=== PATIENT | female | born 1960 | race Caucasian/White ===

== ENCOUNTER 2020-05-07 10:32 | Inpatient (IN) | payer BC, SELFPAY ==
[2020-05-07] VITALS (11 sets, daily range): BP systolic 95–157; BP diastolic 57–88; PULSE 46–72; RESP 14–20; TEMP 36.4–36.8; O2SAT 97–100; BMI 23.6
--- NOTE | 2020-05-07 11:05 | XRR_ITS ---
PROCEDURE INFORMATION: Exam: XR Chest, 1 View Exam date and time: 05/07/2020 11:20 AM Age: 60 years old Clinical indication: Other: Nausea/light-headed / syncope; Patient HX: Was working in [employer] became nauseated and light headed. Syncopal episode of unknown duration TECHNIQUE: Imaging protocol: XR of the chest Views: 1 view. COMPARISON: CR Chest 1 [place] [id number] 03/27/2014 2:54 AM FINDINGS: Lungs: Lungs are well aerated without a focal area of consolidation. Pleural space: Unremarkable. No pleural effusion. No pneumothorax. Heart/Mediastinum: The cardiac silhouette appears enlarged, some of which is magnification related to the AP projection. Bones/joints: Unremarkable. XR/XR chest 1V portable [id number] IMPRESSION: Lungs are well aerated without a focal area of consolidation.
--- NOTE | 2020-05-07 11:05 | CT_ITS ---
WS: [id number] CT HEAD TECHNIQUE: Noncontrast CT of the head obtained from the skullbase to the vertex. CLINICAL INFORMATION: syncope COMPARISON: 2015 DLP: 743.[address] scans at [facility] use at least one of these dose optimization techniques: automat ed exposure control; mA and/or kV adjustment per patient size (includes targeted exams where dose is matched to clinical indication); or iterative reconstruction. FINDINGS: No evidence of intracranial hemorrhage or mass effect. Ventricular system and basal cisterns are corley nt. Mild parenchymal volume loss. No extra-axial fluid collections. No evidence of mass or mass effec t. Normal romero-white differentiation. Paranasal sinuses and mastoid air cells are well aerated. .Normal visualized soft tissues. Notified Sandeep Farrar DO at 05/07/2020 12:[address]/CT head wo con* [id number] IMPRESSION: 1. No evidence of intracranial hemorrhage or mass effect. 2. Mild parenchymal volume loss. 3. No acute intracranial findings.
--- NOTE | 2020-05-07 11:07 | ECG_ITS ---
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 Measurements Intervals [place] Rate: 50 P: 57 [place]: 166 QRS: -16 QRSD: 99 T: 51 QT: 464 QTc: 426 Interpretive Statements SINUS BRADYCARDIA Compared to ECG 04/11/2016 19:01:23 Sinus rhythm no longer present Prolonged QT interval no longer present Electronically Signed On 05-07-2020 20:43:24 CDT by Can Wong M.D. [id number]
--- NOTE | 2020-05-07 11:07 | W.ED.SYNCOPE ---
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 Patient tried to get in front of a fan then sat down. She then had a syncopal episode of unknown duration. Patient denies any chest pain. She denies any recent illness MD complaint: loss of consciousness and collapsed Onset (ago): minute(s) Prodromal symptoms: lightheaded and nausea/vomiting Witnessed: Yes - by Bystander Context: during exertion Injuries sustained associated with event: none Associated symptoms: Reports lightheadedness, nausea and weakness Treatments prior to arrival: none Review of Systems General: Reports: 10 or more systems reviewed and unremarkable except in HPI and below Card: Reports: lightheadedness GI: Reports: nausea Physical Exam Const: COMMON NORMALS: no acute distress, patient oriented x3, no limitations and alert HENMT: COMMON NORMALS: normocephalic, atraumatic, external ears normal and Normal external nose present HEAD & SCALP: normocephalic and atraumatic FACE & SINUS: normal facial exam NOSE: Normal external nose present EXTERNAL EAR: Yes external ears normal MOUTH: Normal oral and palatal mucosa present Neck/C-Spine: COMMON NORMALS: full ROM, no lymphadenopathy, supple, no meningeal signs and no JVD GENERAL: Yes normal visual inspection Resp: COMMON NORMALS: normal respiratory effort, No retractions, No use of accessory muscles and clear to auscultation bilaterally AUSCULTATION: clear to auscultation bilaterally Cardio: COMMON NORMALS: no JVD, regular rate and regular rhythm RATE: regular rate RHYTHM: regular rhythm GI: COMMON NORMALS: Normal to inspection, nondistended, normoactive bowel sounds present, Soft to palpation, non-tender, No hepatosplenomegaly present and no masses INSPECTION: Yes normal to inspection AUSCULTATION: Yes normoactive bowel sounds PALPATION: Yes Soft to palpation and Yes No hepatosplenomegaly present PERCUSSION: normal to percussion : COMMON NORMALS: Yes no CVA tenderness and Yes normal external appearance BLADDER/KIDNEY EXAM: Yes no CVA tenderness Back/Pelvis: COMMON NORMALS: no CVA tenderness, thoracic and lumbar spine normal to inspection, no thoracic nor lumbar tenderness, thoraco-lumbar ROM normal and straight leg raise negative bilaterally Extremity: COMMON NORMALS: normal to inspection, full ROM, capillary refill normal, no joint enlargement, no clubbing, cyanosis or edema, no calf tenderness and no pedal edema Neuro: COMMON NORMALS: patient oriented x3, moves all extremities, no focal motor deficits and no sensory deficits noted SENSORIUM/ORIENTATION: Yes alert MENINGEAL SIGNS: Yes no meningeal signs Psych: COMMON NORMALS: mental status grossly normal, Normal thought process present, cooperative, normal affect and speech normal SPEECH: Yes normal speech THOUGHT PROCESS: Normal thought process present Skin: COMMON NORMALS: no rashes or lesions noted, no wounds, turgor normal, no jaundice, no petechiae and no mottling GENERAL SKIN EXAM: no rashes or lesions noted and turgor normal Course Vital Signs: Vital signs: Vital Signs Temperature 98.2 F 05/07/20 10:41 Pulse Rate 48 L 05/07/20 12:30 Respiratory Rate 18 05/07/20 12:30 Blood Pressure 148/88 05/07/20 12:30 Pulse Oximetry 100 05/07/20 12:30 MDM - Syncope Lab Data: Labs: Lab Results 05/07/20 05/07/20 05/07/20 Range/Units 10:04 10:04 10:04 WBC 8.8 (4.0-10.0) 10^3/ uL RBC 4.96 (4.1-5.3) 10^6/u L Hgb 14.8 (11.5-15.3) g/dL Hct 44.4 (37.0-47.0) % MCV 89.5 (81-99) fL MCH 29.8 (28.0-34.0) pg MCHC 33.3 (30.0-36.0) g/dL RDW 12.6 (12.1-15.1) % Plt Count 341 (130-400) 10^3/c mm MPV 11.6 H (7.4-10.4) fL Neut % (Auto) 42.1 % Lymph % (Auto) 50.7 % [place] % (Auto) 5.5 % Eos % (Auto) 0.8 % Baso % (Auto) 0.7 % Neut # (Auto) 3.69 (1.8-7.7) 10^3/u L Lymph # (Auto) 4.4 (0.8-4.8) 10^3/u L [place] # (Auto) 0.5 (0.2-0.9) 10^3/u L Eos # (Auto) 0.1 (0.0-0.8) 10^3/u L Baso # (Auto) 0.1 (0.0-0.1) 10^3/u L Nucleated RBC % (a uto) 0 % Nucleated RBCs # 0.0 /100WBC PT 12.50 (10.5-13.3) SECO NDS INR 0.91 (0.8-1.2) D-Dimer 0.61 H (0-0.59) ug/mIFE U Sodium 136 (136-145) mmol/L Potassium 3.2 L (3.5-5.1) mmol/L Chloride 99 (98-107) mmol/L Carbon Dioxide 20 L (22-29) mmol/L Anion Gap 20.2 H (5-19) BUN 22 H (6-20) mg/dL Creatinine 0.8 (0.5-0.9) mg/dL GFR Calculation 73.7 L (90-130) mL/min Glucose 140 H (65-115) mg/dL Calculated Osmolal ity 281 L (285-295) mOsm/k g Lactate (0.5-2.2) mmol/L Calcium 10.4 (8.5-10.5) mg/dL Phosphorus 1.6 L (2.5-4.5) mg/dL Magnesium 2.1 (1.7-2.3) mg/dL Total Bilirubin 0.5 (0.15-1.2) mg/dL AST 19 (0-32) U/L ALT 15 (0-33) U/L Alkaline Phosphata se 64 (35-105) IU/L Troponin T Baselin e (0-10) ng/L Troponin T 120 Min [place] (0-10) ng/L Delta Troponin T (0-10) ABS# NT-Pro-B Natriuret Pep 165 H (0-125) pg/mL Total Protein 7.4 (6.6-8.7) g/dL Albumin 4.4 (3.5-5.2) g/dL Globulin 3.0 (1.3-4.6) g/dL Lipase 49 (13-60) U/L TSH 4.21 H (0.27-4.20) uIU/ mL Urine Color (Yellow) Urine Appearance (CLEAR) Urine pH (5-7) Ur Specific Gravit y (1.005-1.030) Urine Protein (Negative) Urine Glucose (UA) (Normal) Urine Ketones (Negative) Urine Blood (Negative) Urine Nitrate (Negative) Urine Bilirubin (NEGATIVE) Urine Urobilinogen (Negative) mg/dL Ur Leukocyte Dorys ase (Negative) 05/07/20 05/07/20 05/07/20 Range/Units 10:04 11:35 11:50 WBC (4.0-10.0) 10^3/ uL RBC (4.1-5.3) 10^6/u L Hgb (11.5-15.3) g/dL Hct (37.0-47.0) % MCV (81-99) fL MCH (28.0-34.0) pg MCHC (30.0-36.0) g/dL RDW (12.1-15.1) % Plt Count (130-400) 10^3/c mm MPV (7.4-10.4) fL Neut % (Auto) % Lymph % (Auto) % [place] % (Auto) % Eos % (Auto) % Baso % (Auto) % Neut # (Auto) (1.8-7.7) 10^3/u L Lymph # (Auto) (0.8-4.8) 10^3/u L [place] # (Auto) (0.2-0.9) 10^3/u L Eos # (Auto) (0.0-0.8) 10^3/u L Baso # (Auto) (0.0-0.1) 10^3/u L Nucleated RBC % (a uto) % Nucleated RBCs # /100WBC PT (10.5-13.3) SECO NDS INR (0.8-1.2) D-Dimer (0-0.59) ug/mIFE U Sodium (136-145) mmol/L Potassium (3.5-5.1) mmol/L Chloride (98-107) mmol/L Carbon Dioxide (22-29) mmol/L Anion Gap (5-19) BUN (6-20) mg/dL Creatinine (0.5-0.9) mg/dL GFR Calculation (90-130) mL/min Glucose (65-115) mg/dL Calculated Osmolal ity (285-295) mOsm/k g Lactate 2.1 (0.5-2.2) mmol/L Calcium (8.5-10.5) mg/dL Phosphorus (2.5-4.5) mg/dL Magnesium (1.7-2.3) mg/dL Total Bilirubin (0.15-1.2) mg/dL AST (0-32) U/L ALT (0-33) U/L Alkaline Phosphata se (35-105) IU/L Troponin T Baselin e 6 (0-10) ng/L Troponin T 120 Min [place] (0-10) ng/L Delta Troponin T (0-10) ABS# NT-Pro-B Natriuret Pep (0-125) pg/mL Total Protein (6.6-8.7) g/dL Albumin (3.5-5.2) g/dL Globulin (1.3-4.6) g/dL Lipase (13-60) U/L TSH (0.27-4.20) uIU/ mL Urine Color Yellow (Yellow) Urine Appearance Clear (CLEAR) Urine pH 7 (5-7) Ur Specific Gravit y 1.010 (1.005-1.030) Urine Protein Neg (Negative) Urine Glucose (UA) Norm (Normal) Urine Ketones Negative (Negative) Urine Blood Neg (Negative) Urine Nitrate Negative (Negative) Urine Bilirubin Neg (NEGATIVE) Urine Urobilinogen Norm (Negative) mg/dL Ur Leukocyte Dorys ase Negative (Negative) 05/07/20 Range/Units 12:20 WBC (4.0-10.0) 10^3/ uL RBC (4.1-5.3) 10^6/u L Hgb (11.5-15.3) g/dL Hct (37.0-47.0) % MCV (81-99) fL MCH (28.0-34.0) pg MCHC (30.0-36.0) g/dL RDW (12.1-15.1) % Plt Count (130-400) 10^3/c mm MPV (7.4-10.4) fL Neut % (Auto) % Lymph % (Auto) % [place] % (Auto) % Eos % (Auto) % Baso % (Auto) % Neut # (Auto) (1.8-7.7) 10^3/u L Lymph # (Auto) (0.8-4.8) 10^3/u L [place] # (Auto) (0.2-0.9) 10^3/u L Eos # (Auto) (0.0-0.8) 10^3/u L Baso # (Auto) (0.0-0.1) 10^3/u L Nucleated RBC % (a uto) % Nucleated RBCs # /100WBC PT (10.5-13.3) SECO NDS INR (0.8-1.2) D-Dimer (0-0.59) ug/mIFE U Sodium (136-145) mmol/L Potassium (3.5-5.1) mmol/L Chloride (98-107) mmol/L Carbon Dioxide (22-29) mmol/L Anion Gap (5-19) BUN (6-20) mg/dL Creatinine (0.5-0.9) mg/dL GFR Calculation (90-130) mL/min Glucose (65-115) mg/dL Calculated Osmolal ity (285-295) mOsm/k g Lactate (0.5-2.2) mmol/L Calcium (8.5-10.5) mg/dL Phosphorus (2.5-4.5) mg/dL Magnesium (1.7-2.3) mg/dL Total Bilirubin (0.15-1.2) mg/dL AST (0-32) U/L ALT (0-33) U/L Alkaline Phosphata se (35-105) IU/L Troponin T Baselin e (0-10) ng/L Troponin T 120 Min [place] 6.74 (0-10) ng/L Delta Troponin T 0.74 (0-10) ABS# NT-Pro-B Natriuret Pep (0-125) pg/mL Total Protein (6.6-8.7) g/dL Albumin (3.5-5.2) g/dL Globulin (1.3-4.6) g/dL Lipase (13-60) U/L TSH (0.27-4.20) uIU/ mL Urine Color (Yellow) Urine Appearance (CLEAR) Urine pH (5-7) Ur Specific Gravit y (1.005-1.030) Urine Protein (Negative) Urine Glucose (UA) (Normal) Urine Ketones (Negative) Urine Blood (Negative) Urine Nitrate (Negative) Urine Bilirubin (NEGATIVE) Urine Urobilinogen (Negative) mg/dL Ur Leukocyte Dorys ase (Negative) Discharge Plan Discharge Patient Disposition: Admitted As Inpatient Clinical Impression: Anginal equivalent, Syncope and collapse, Bradycardia Condition: Fair Referrals: Acosta Wild DO [Primary Care Provider] - Coding Level of Care Code ED Claims Adjuster Crop for Chg Fwd Exam Comprehensive
[2020-05-07 11:31] LABS: Basophils # 0.1 10^3/uL (0.0-0.1); Basophils % 0.7 %; Eosinophils # 0.1 10^3/uL (0.0-0.8); Eosinophils % 0.8 %; Hematocrit 44.4 % (37.0-47.0); Hemoglobin 14.8 g/dL (11.5-15.3); Lymphocytes # 4.4 10^3/uL (0.8-4.8); Lymphocytes % 50.7 %; Mean Corpuscular HGB Conc 33.3 g/dL (30.0-36.0); Mean Corpuscular Hemoglobin 29.8 pg (28.0-34.0); Mean Corpuscular Volume 89.5 fL (81-99); Mean Platelet Volume 11.6 fL (7.4-10.4); Monocytes # 0.5 10^3/uL (0.2-0.9); Monocytes % 5.5 %; Neutrophils # 3.69 10^3/uL (1.8-7.7); Neutrophils % 42.1 %; Nucleated Red Blood Cells % 0 %; Platelet Count 341 10^3/cmm (130-400); Red Blood Count 4.96 10^6/uL (4.1-5.3); Red Cell Distribution Width 12.6 % (12.1-15.1); White Blood Count 8.8 10^3/uL (4.0-10.0)
[2020-05-07 11:34] LABS: INR 0.91 (0.8-1.2)
[2020-05-07 11:37] LABS: D Dimer 0.61 ug/mIFEU (0-0.59)
[2020-05-07 11:43] LABS: Troponin(5th) Baseline 6 ng/L (0-10)
[2020-05-07] MEDS: sodium chloride 0.9% 1,000 ML 999 ML IV (11:45)
[2020-05-07 11:51] LABS: Alanine Aminotransferase 15 U/L (0-33); Albumin Level 4.4 g/dL (3.5-5.2); Alkaline Phosphatase 64 IU/L (35-105); Anion Gap 20.2 (5-19); Aspartate Amino Transferase 19 U/L (0-32); Blood Urea Nitrogen 22 mg/dL (6-20); Calcium 10.4 mg/dL (8.5-10.5); Carbon Dioxide 20 mmol/L (22-29); Chloride 99 mmol/L (98-107); Glomerular Filtration Rate 73.7 mL/min (90-130); Glucose 140 mg/dL (65-115); Lipase 49 U/L (13-60); Magnesium 2.1 mg/dL (1.7-2.3); NT Pro B Type Natriuretic Pept 165 pg/mL (0-125); Osmolality Calculated 281 mOsm/kg (285-295); Phosphorus 1.6 mg/dL (2.5-4.5); Potassium 3.2 mmol/L (3.5-5.1); Sodium 136 mmol/L (136-145); Thyroid Stimulating Hormone 4.21 uIU/mL (0.27-4.20); Total Bilirubin 0.5 mg/dL (0.15-1.2); Total Protein 7.4 g/dL (6.6-8.7)
[2020-05-07 11:59] LABS: Add Urine Microscopic? NO; Bilirubin Urine Neg (NEGATIVE); Blood Urine Neg (Negative); Glucose Urine UA Norm (Normal); Ketones Urine Negative (Negative); Leukocyte Esterase Urine Negative (Negative); Nitrate Urine Negative (Negative); Protein Urine Neg (Negative); Urine Appearance Clear (CLEAR); Urine Color Yellow (Yellow); Urobilinogen Urine Norm (Negative); pH Urine 7 (5-7)
[2020-05-07 12:04] LABS: Lactate (Lactic Acid level) 2.1 mmol/L (0.5-2.2)
[2020-05-07 12:37] LABS: Troponin 5 2HR 6.74 ng/L (0-10); Troponin 5 2HR Delta 0.74 ABS# (0-10)
--- NOTE | 2020-05-07 13:07 | ECG_ITS ---
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 Measurements Intervals [place] Rate: 50 P: 55 [place]: 161 QRS: -22 QRSD: 98 T: 41 QT: 386 QTc: 355 Interpretive Statements SINUS BRADYCARDIA BORDERLINE LEFT AXIS DEVIATION [QRS AXIS < -20] NONSPECIFIC T-WAVE ABNORMALITY Compared to ECG 05/07/2020 11:17:05 T-wave abnormality now present Electronically Signed On 05-07-2020 20:46:10 CDT by Can Wong M.D. [id number]
--- NOTE | 2020-05-07 15:39 | PM.HP ---
Providers/Chief Complaint Admitting Physician: Renato Garcia MD Primary Care Provider: Acosta Wild DO Chief Complaint: SYNCOPE History of Present Illness Ceci Manning is a 60 year old female presents to emerge department after she had syncopal episode. 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 This was witnessed and patient thinks she was out for 20 minutes. She came to and gradually got oriented. She remembers that it was raining and remembers when she was getting into ambulance. At that time she was alert and oriented and recognized surroundings. Patient reports that when she came to she had moderate substernal pressure-like chest pain that she could not really tell me how long it lasted. She also recalls having some back pain but does not think it was related to her chest pain. Denies any previous history of the same. Reports that she would frequently get episodes of heart palpitations. Reports that lately she has been somewhat more tired and fatigued but denies shortness of breath or significant dyspnea on exertion. Denies paroxysmal chewing dyspnea, orthopnea or lower extremity swelling. In emergency department patient was found to have bradycardia in the 30s. Her troponin so far in normal range. Reports that she was previously borderline diabetic . Reports that she lost 60 pounds of weight while following healthy diet and this made her feel much better. Her chronic back pain significantly improved. She denies taking any mat blocking agents. Denies previous history of heart disease or stroke. Review of Systems Const: Denies: fever(s) or chills Eyes: Denies: change in vision ENMT: Denies: throat pain or change in hearing Card: Reports: chest pain; Denies: edema or lightheadedness Resp: Denies: dyspnea or productive cough GI: Reports: abdominal pain (Occasional episodes of epigastric area discomfort. Patient is being treated with meloxicam.); Denies: nausea, vomiting, dysphagia, diarrhea, constipation, hematochezia or melena : Denies: difficulty voiding Musc: Denies: joint pain or joint swelling Skin/Breast: Denies: rash or erythema Neuro: Reports: headache(s) (Has chronic history of migraine headache and reports that in the last couple of weeks she has been having more frequent mild frontal headaches.); Denies: weakness in extremities Psych: Denies: depression (But does report occasionally getting anxious.) Endo: Denies: excessive sweating Massimo/Lymph: Denies: easy bleeding or tender lymph nodes All/Imm: Denies: throat swelling Medications/Allergies Home Medications Medication Instructions Recorded Confirmed Last Taken Type acetaminophen [Tylenol] 325 mg PO QID PRN 05/07/20 05/07/20 05/06/20 History diazepam 2 mg PO DAILY 05/07/20 05/07/20 05/06/20 History estradiol 0.5 mg PO DAILY 05/07/20 05/07/20 05/07/20 History famotidine 20 mg PO BID 05/07/20 05/07/20 05/07/20 History levothyroxine 125 mcg PO DAILY 05/07/20 05/07/20 05/06/20 History lisinopril-hydrochlorothiazide 1 tab PO DAILY 05/07/20 05/07/20 05/07/20 History meloxicam 15 mg PO DAILY 05/07/20 05/07/20 05/06/20 History trazodone 50 mg PO BEDTIME 05/07/20 05/07/20 05/06/20 History Allergies Allergy/AdvReac Type Severity Reaction Status Date / Time meperidine [From Demerol] Allergy ADR-Halluci Verified 05/07/20 12:47 nating Sulfa (Sulfonamide Allergy ALGY-Swell Verified 05/07/20 10:48 Antibiotics) Lip/Tongue/Throat PFSH Acute PFSH: Medical History (Updated 05/07/20 @ 15:52 by Renato Garcia MD) Borderline diabetes Fracture of lower extremity GERD (gastroesophageal reflux disease) Hiatal hernia Hypertension Hypothyroidism Migraine headache Rectal fistula Surgical History (Updated 05/07/20 @ 15:49 by Renato Garcia MD) H/O hysterectomy with oophorectomy Hx laparoscopic cholecystectomy Family History (Updated 05/07/20 @ 15:50 by Renato Garcia MD) Mother Cancer Multiple myeloma CAD (coronary artery disease) Father Cancer Prostate cancer, metastatic Social History (Updated 05/07/20 @ 15:51 by Renato Garcia MD) Smoking and tobacco status: never smoked Alcohol intake: never Substance/Drug Use: never Household members: spouse Vitals/I&O/Wt Last Vital Signs Temp 97.6 F 05/07/20 13:11 Pulse 60 05/07/20 14:48 Resp 18 05/07/20 13:54 BP 148/88 05/07/20 13:54 Pulse Ox 100 05/07/20 14:48 05/07/20 05/07/20 05/07/20 06:59 14:59 22:59 Intake Total 1000 / 1000 Balance 1000 / 1000 Weight last 48 hrs Weight 60.328 kg Physical Exam Const: COMMON NORMALS: no acute distress, patient oriented x3 and alert HENMT: COMMON NORMALS: normocephalic and atraumatic HEAD & SCALP: normocephalic and atraumatic Eye: COMMON NORMALS: EOMs intact bilaterally, conjunctivae normal and no scleral icterus CONJUNCTIVA: Yes conjunctivae normal Neck/C-Spine: COMMON NORMALS: no lymphadenopathy and no meningeal signs Lymph: LYMPHATIC: no lymphadenopathy noted Chest: COMMONS NORMALS: normal palpation of entire chest wall Resp: COMMON NORMALS: No use of accessory muscles and clear to auscultation bilaterally AUSCULTATION: clear to auscultation bilaterally Cardio: COMMON NORMALS: regular rate, regular rhythm and No murmurs present (Cardio) RATE: regular rate RHYTHM: regular rhythm OTHER: No lower extremity edema GI: COMMON NORMALS: Soft to palpation and non-tender PALPATION: Yes Soft to palpation RECTAL EXAM: deferred : COMMON NORMALS: Yes no CVA tenderness BLADDER/KIDNEY EXAM: Yes no CVA tenderness Back/Pelvis: COMMON NORMALS: no CVA tenderness and thoracic and lumbar spine normal to inspection Extremity: COMMON NORMALS: normal to inspection and capillary refill normal Neuro: COMMON NORMALS: patient oriented x3 and no focal motor deficits SENSORIUM/ORIENTATION: Yes alert MENINGEAL SIGNS: Yes no meningeal signs Psych: COMMON NORMALS: mental status grossly normal, Normal thought process present and cooperative THOUGHT PROCESS: Normal thought process present Skin: COMMON NORMALS: no rashes or lesions noted GENERAL SKIN EXAM: no rashes or lesions noted Data : 05/07/20 10:04 05/07/20 10:04 A&P Assessment and plan (1) Sinus bradycardia: Status: Acute (2) Hypertension: Status: Acute (3) GERD (gastroesophageal reflux disease): Status: Acute (4) Hypothyroidism: Status: Acute (5) Syncope and collapse: Status: Acute (6) Anginal equivalent: Status: Acute (7) Hypokalemia: Status: Acute (8) Hyperglycemia: Status: Acute (9) Hypophosphatemia: Status: Acute Additional A&P Information Monitor closely on telemetry. Replete electrolytes. Obtain echocardiogram. We will add aspirin and Lovenox for DVT prophylaxis. Consult cardiology. Patient's chest pain is concerning and at this point we will need to rule out ischemic cause of patient's bradycardia. She will benefit from coronary angiogram and if no significant findings of underlying coronary artery disease she will likely require pacemaker. Check hemoglobin A1c and lipid profile. Discontinue meloxicam and switch H2 pete to Protonix. Attestations Medical Necessity Statement*: Patient with syncopal episode and significant bradycardia requires close inpatient monitoring, treatment and evaluation. I expect patient will require more than 2 midnights. Time Spent in Patient Care: Greater than 35 minutes Coding Level of Care Code Acute Composer Teaching Artist for Chg Fwd Diagnoses Sinus bradycardia R00.1 Hypertension I10 GERD (gastroesophageal reflux disease) K21.9 Hypothyroidism E03.9 Syncope and collapse R55 Anginal equivalent I20.8 Hypokalemia E87.6 Hyperglycemia R73.9 Hypophosphatemia E83.39
[2020-05-07] MEDS: lactated ringers 1,000 ML 50 ML IV (16:16)
[2020-05-07] MEDS: aspirin 325 mg Tablet PO (16:16)
--- NOTE | 2020-05-07 16:39 | PC.NURSE ---
POTASSIUM PHOSPHATE PATIENT DID NOT TOLERATE THE POTASSIUM. THIS NURSE DISCONTINUED AND CONTACTED DR. SANCHES. DR. SANCHES ORDERED 40 MEQ OF ORAL POTASSIUM.
[2020-05-07] MEDS: pantoprazole DR 40 mg Tablet PO (16:42)
[2020-05-07] MEDS: potassium chloride ER 10 mEq Tablet 40 MEQ PO (16:42)
[2020-05-07] MEDS: enoxaparin 40 mg/0.4 mL Syringe SUBCUT (16:42)
--- NOTE | 2020-05-07 17:01 | PM.CONSULT ---
Providers/Reason For Consult Consulting Physican/Specialty*: Dr. TATIANA Raya/cardiology Reason for Consult*: Bradycardia/syncope/chest pain Attending Physician: Renato Garcia MD Primary Care Provider: Acosta Wild DO History of Present Illness History of Present Illness Ceci Manning is a 60 year old female, is admitted to the hospital through the emergency room, where she presented with an episode of syncope. She also was complaining of some chest discomfort. She was found to be bradycardic on the monitor. Cardiology consult is requested for further cardiac evaluation recommendations. This patient has a history of high blood pressure, diet-controlled diabetes and hypothyroidism. She apparently has been in her baseline state of health up until this morning when she woke up with some discomfort in the abdomen. She was not feeling well and was somewhat tired. With the symptoms, she went to the chicken coop to collect eggs. Apparently she got more sick while being in the chicken coop. She was getting more dizzy as well. The next thing she knew was that her son carrying her and making her lie on a flat surface. She had some feeling of tingling and numbness in both upper extremities. She may have passed out for 15 minutes or so, according to her . Subsequently an ambulance was called in and was brought to the hospital. On the way to the hospital, she was complaining of some chest tightness/pain. She is not able to give much details on the chest pain. She did not have much of any shortness of breath, fever, chills or cough. No other associated symptoms. She has no previous history for coronary artery disease, myocardial infarction or congestive heart failure. She has been having episodes of weakness/tiredness lately. She was diagnosed with Lyme disease 3 or 4 years ago. Ever since then, she has been having spells of weakness/tiredness. Usually these spells happen during the summer times. She also may have lost some weight lately. She has fairly good appetite. Recently her primary care provider put her on some doxycycline. But because of the stomach discomfort, she stopped taking the medicine. Review of Systems Narrative: CONSTITUTIONAL: No fever or chills. Feeling of lethargy/weakness, intermittent. EYES: No blurring of vision or other visual disturbances lately. ENT: No hoarseness of voice, auditory disturbances or sore throat. CARDIOVASCULAR: As mentioned above. RESPIRATORY: No significant cough. GASTROINTESTINAL: Stomach discomfort as mentioned above GENITOURINARY: No dysuria or hematuria. INTEGUMENTARY: No skin rashes or history of skin cancer. NEURO: Remote history of migrainous headache. Recently she has been having some headache, dull aching, persistent for the last 2 weeks or so. PSYCHIATRIC: No history of psychosis or major depression. HEMATOLOGIC: No bleeding disorders or significant anemia. ENDOCRINE: History of hypothyroidism, on thyroid supplement MUSCULOSKELETAL: No recent joint pain or swelling. ALLERGY/IMMUNOLOGY: As mentioned above. Meds/Allergies Home Medications and Allergies Home Medications Medication Instructions Recorded Confirmed Last Taken Type acetaminophen [Tylenol] 325 mg PO QID PRN 05/07/20 05/07/20 05/06/20 History diazepam 2 mg PO DAILY 05/07/20 05/07/20 05/06/20 History estradiol 0.5 mg PO DAILY 05/07/20 05/07/20 05/07/20 History famotidine 20 mg PO BID 05/07/20 05/07/20 05/07/20 History levothyroxine 125 mcg PO DAILY 05/07/20 05/07/20 05/06/20 History lisinopril-hydrochlorothiazide 1 tab PO DAILY 05/07/20 05/07/20 05/07/20 History meloxicam 15 mg PO DAILY 05/07/20 05/07/20 05/06/20 History trazodone 50 mg PO BEDTIME 05/07/20 05/07/20 05/06/20 History Allergies Allergy/AdvReac Type Severity Reaction Status Date / Time meperidine [From Demerol] Allergy ADR-Halluci Verified 05/07/20 12:47 nating Sulfa (Sulfonamide Allergy ALGY-Swell Verified 05/07/20 10:48 Antibiotics) Lip/Tongue/Throat Current Medications Current Medications Generic Name Dose Route Start Last Admin Trade Name Freq PRN Reason Stop Dose Admin Enoxaparin Sodium 40 mg 05/07/20 18:00 05/07/20 16:42 Lovenox SUBCUT 40 mg Q24H URBANO Administration Potassium Phosphate 30 mmol/ 110 mls @ 25 mls/hr 05/07/20 16:15 05/07/20 16:16 Sodium Chloride IV 05/07/20 20:38 25 mls/hr ONCE ONE Administration Lactated Ringer's 1,000 mls @ 50 mls/hr 05/07/20 16:00 05/07/20 16:16 Lactated Ringers IV 50 mls/hr .Q20H URBANO Administration Pantoprazole Sodium 40 mg 05/07/20 18:00 05/07/20 16:42 Protonix PO 40 mg BID URBANO Administration PFSH Acute PFSH: Medical History Borderline diabetes Fracture of lower extremity GERD (gastroesophageal reflux disease) Hiatal hernia Hypertension Hypothyroidism Migraine headache Rectal fistula Surgical History H/O hysterectomy with oophorectomy Hx laparoscopic cholecystectomy Family History Mother Cancer Multiple myeloma CAD (coronary artery disease) Father Cancer Prostate cancer, metastatic Social History Smoking and tobacco status: never smoked Alcohol intake: never Substance/Drug Use: never Household members: spouse Vitals/I&O/Wt Last Vital Signs Temp 97.8 F 05/07/20 16:00 Pulse 50 L 05/07/20 16:00 Resp 16 05/07/20 16:00 BP 131/57 05/07/20 16:00 Pulse Ox 98 05/07/20 16:00 05/07/20 05/07/20 05/07/20 06:59 14:59 22:59 Intake Total 1000 / 1000 Balance 1000 / 1000 Weight last 48 hrs Weight 133 lb Physical Exam Narrative: EXAM NARRATIVE: GENERAL: The patient is alert and oriented times three. Not in any acute distress. HEENT: No significant pallor, icterus or lymphadenopathy. The pupils are reactant to light. Oral cavity: There are no mucous membrane lesions. Funduscopic examination: The fundus is not visualized NECK: Trachea appears to be central. No masses noted. No JVD or thyromegaly appreciated. No carotid bruit. RESPIRATORY: Chest is symmetrical. No intercostals muscle retraction or any accessory muscle activation. There is no chest wall tenderness. Breath sounds are heard bilaterally. No rales or rhonchi heard. No evidence of any consolidation. BREASTS: Deferred. HEART: The PMI is in the 5th left intercostals space just inside the midclavicular line. No palpable precordial events. S1 and S2 are normal. No S3 or S4 heard. No pericardial rub or any click heard. ABDOMEN: No vessel pulsations or distention. No tenderness. No organomegaly appreciated. No abdominal bruit. Bowel sounds are normally heard. : Deferred. RECTAL: Deferred. LYMPHATIC: No lymphadenopathy noted in the neck or groin. EXTREMITIES: No edema or cyanosis. No clubbing. The pulses are symmetrical bilaterally. The radial, femoral, dorsalis pedis and the posterior tibial pulses are palpated and found to be in good volume and amplitude. MUSCULOSKELETAL: Gait is normal. There is no joint deformity or swelling noted. No joint tenderness or any effusion. The shoulder and hip joints appear to have normal range of motion. SKIN: There are no significant scars or skin rash noted. NEUROPSYCHIATRIC: The patient is alert and oriented x3. Appears to be in a good mood. The higher functions are grossly within normal limits. No tremors or rigidity noted. Data Labs: Other Labs: Laboratory Last Values WBC 8.8 10^3/uL (4.0- 10.0) 05/07/20 10:04 RBC 4.96 10^6/uL (4.1 -5.3) 05/07/20 10:04 Hgb 14.8 g/dL (11.5-1 5.3) 05/07/20 10:04 Hct 44.4 % (37.0-47.0 ) 05/07/20 10:04 MCV 89.5 fL (81-99) 05/07/20 10:04 MCH 29.8 pg (28.0-34. 0) 05/07/20 10:04 MCHC 33.3 g/dL (30.0-3 6.0) 05/07/20 10:04 RDW 12.6 % (12.1-15.1 ) 05/07/20 10:04 Plt Count 341 10^3/cmm (130 -400) 05/07/20 10:04 MPV 11.6 fL (7.4-10.4 ) H 05/07/20 10:04 Neut % (Auto) 42.1 % 05/07/20 10:04 Lymph % (Auto) 50.7 % 05/07/20 10:04 [place] % (Auto) 5.5 % 05/07/20 10:04 Eos % (Auto) 0.8 % 05/07/20 10:04 Baso % (Auto) 0.7 % 05/07/20 10:04 Neut # (Auto) 3.69 10^3/uL (1.8 -7.7) 05/07/20 10:04 Lymph # (Auto) 4.4 10^3/uL (0.8- 4.8) 05/07/20 10:04 [place] # (Auto) 0.5 10^3/uL (0.2- 0.9) 05/07/20 10:04 Eos # (Auto) 0.1 10^3/uL (0.0- 0.8) 05/07/20 10:04 Baso # (Auto) 0.1 10^3/uL (0.0- 0.1) 05/07/20 10:04 Nucleated RBC % (a uto) 0 % 05/07/20 10:04 Nucleated RBCs # 0.0 /100WBC 05/07/20 10:04 PT 12.50 SECONDS (10 .5-13.3) 05/07/20 10:04 INR 0.91 (0.8-1.2) 05/07/20 10:04 D-Dimer 0.61 ug/mIFEU (0- 0.59) H 05/07/20 10:04 Sodium 136 mmol/L (136-1 45) 05/07/20 10:04 Potassium 3.2 mmol/L (3.5-5 .1) L 05/07/20 10:04 Chloride 99 mmol/L (98-107 ) 05/07/20 10:04 Carbon Dioxide 20 mmol/L (22-29) L 05/07/20 10:04 Anion Gap 20.2 (5-19) H 05/07/20 10:04 BUN 22 mg/dL (6-20) H 05/07/20 10:04 Creatinine 0.8 mg/dL (0.5-0. 9) 05/07/20 10:04 GFR Calculation 73.7 mL/min (90-1 30) L 05/07/20 10:04 Glucose 140 mg/dL (65-115 ) H 05/07/20 10:04 Calculated Osmolal ity 281 mOsm/kg (285- 295) L 05/07/20 10:04 Lactate 2.1 mmol/L (0.5-2 .2) 05/07/20 11:35 Calcium 10.4 mg/dL (8.5-1 0.5) 05/07/20 10:04 Phosphorus 1.6 mg/dL (2.5-4. 5) L 05/07/20 10:04 Magnesium 2.1 mg/dL (1.7-2. 3) 05/07/20 10:04 Total Bilirubin 0.5 mg/dL (0.15-1 .2) 05/07/20 10:04 AST 19 U/L (0-32) 05/07/20 10:04 ALT 15 U/L (0-33) 05/07/20 10:04 Alkaline Phosphata se 64 IU/L (35-105) 05/07/20 10:04 Troponin T Baselin e 6 ng/L (0-10) 05/07/20 10:04 Troponin T 120 Min [place] 6.74 ng/L (0-10) 05/07/20 12:20 Delta Troponin T 0.74 ABS# (0-10) 05/07/20 12:20 NT-Pro-B Natriuret Pep 165 pg/mL (0-125) H 05/07/20 10:04 Total Protein 7.4 g/dL (6.6-8.7 ) 05/07/20 10:04 Albumin 4.4 g/dL (3.5-5.2 ) 05/07/20 10:04 Globulin 3.0 g/dL (1.3-4.6 ) 05/07/20 10:04 Lipase 49 U/L (13-60) 05/07/20 10:04 TSH 4.21 uIU/mL (0.27 -4.20) H 05/07/20 10:04 Urine Color Yellow (Yellow) 05/07/20 11:50 Urine Appearance Clear (CLEAR) 05/07/20 11:50 Urine pH 7 (5-7) 05/07/20 11:50 Ur Specific Gravit y 1.010 (1.005-1.0 30) 05/07/20 11:50 Urine Protein Neg (Negative) 05/07/20 11:50 Urine Glucose (UA) Norm (Normal) 05/07/20 11:50 Urine Ketones Negative (Negati ve) 05/07/20 11:50 Urine Blood Neg (Negative) 05/07/20 11:50 Urine Nitrate Negative (Negati ve) 05/07/20 11:50 Urine Bilirubin Neg (NEGATIVE) 05/07/20 11:50 Urine Urobilinogen Norm mg/dL (Negat erin) 05/07/20 11:50 Ur Leukocyte Dorys ase Negative (Negati ve) 05/07/20 11:50 Imaging^: CT Head: My impression: 1. No evidence of intracranial hemorrhage or mass effect. 2. Mild parenchymal volume loss. 3. No acute intracranial findings. CXR: My impression: Normal cardiac silhouette with no lung infiltrates. No acute pathology noted EKG^: EKG 1: My Interpretation: Sinus bradycardia with some nonspecific T wave changes. Heart rate of 50 bpm. Minimal left axis deviation. EKG computer-generated impression: Sinus bradycardia with a rate of 50 bpm. Minimal left axis deviation. No acute ST-T changes. A&P Assessment and plan (1) Syncope and collapse: Etiology of the syncope is not clear at this time. Possibility of severe bradycardia causing this is a consideration. A vasovagal reaction also is a consideration. Currently she continues to have sinus bradycardia with a heart rate in the upper 40s and low 50s. No evidence of any high degree AV block. Possibility of coronary ischemia causing transient hypotension/bradycardia also is a consideration. Her chest pain may sized underlying coronary ischemia. Status: Acute (2) Atypical chest pain: Her chest pain with the bilateral arm tingling, may suggest a cardiac etiology. The EKG does not reveal any acute changes. For further evaluation, we may do an echocardiogram in the morning. Also may consider doing an exercise/sestamibi/sestamibi stress test. Based on the results of these tests, further recommendations will be made. Status: Acute (3) Bradycardia: Patient apparently has a history of bradycardia. Whether the bradycardia is causing the syncopal episode or not he is not clear at this time. This may need to be further evaluated. She will be closely monitored on telemetry. Status: Acute (4) Hypertension: Patient has a history of essential benign hypertension. Currently her blood pressure is in the normal range. May be continued on the current medications for the time being. Status: Acute Qualifiers: Hypertension type: essential hypertension Qualified Code(s): I10 - Essential (primary) hypertension (5) Hypothyroidism: Clinically she seems to be euthyroid. Her TSH is slightly elevated. May adjust the dose of the levothyroxine. Status: Acute Qualifiers: Hypothyroidism type: acquired Qualified Code(s): E03.9 - Hypothyroidism, unspecified Additional A&P Information Patient the patient's clinical progress and the results of the above, further recommendations will be made. She may be closely monitored on telemetry for the time being. Thank you for the opportunity to eval this patient make these recommendations Coding Level of Care Code Acute Medical Staff Coordinator for Rima Lama History Detailed Exam Detailed Medical Decision Making Moderate Complexity Diagnoses Syncope and collapse R55 Atypical chest pain R07.89 Bradycardia R00.1 Hypertension I10 Hypertension type: essential hypertension Hypothyroidism E03.9 Hypothyroidism type: acquired Time Spent (min) 50
--- NOTE | 2020-05-07 17:07 | ECG_ITS ---
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 Measurements Intervals [place] Rate: 48 P: 58 FL: 159 QRS: -26 QRSD: 98 T: 30 QT: 498 QTc: 445 Interpretive Statements SINUS BRADYCARDIA BORDERLINE LEFT AXIS DEVIATION [QRS AXIS < -20] Compared to ECG 05/07/2020 13:01:39 T-wave abnormality no longer present Electronically Signed On 05-07-2020 20:46:18 CDT by Can Wong M.D. [id number]
[2020-05-07 17:44] LABS: Troponin 5 6HR 6.86 ng/L (0-10); Troponin 5 6HR Delta 0.86 ng/L (0-12)
[2020-05-08] VITALS (7 sets, daily range): BP systolic 100–127; BP diastolic 62–82; PULSE 45–83; RESP 17–18; TEMP 36.7–36.8; O2SAT 95–100
[2020-05-08] MEDS: trazodone 50 mg Tablet PO (00:01)
[2020-05-08 04:51] LABS: Basophils # 0.1 10^3/uL (0.0-0.1); Basophils % 0.6 %; Eosinophils # 0.1 10^3/uL (0.0-0.8); Eosinophils % 1.3 %; Hematocrit 37.7 % (37.0-47.0); Hemoglobin 12.1 g/dL (11.5-15.3); Lymphocytes # 2.6 10^3/uL (0.8-4.8); Lymphocytes % 33.9 %; Mean Corpuscular HGB Conc 32.1 g/dL (30.0-36.0); Mean Corpuscular Hemoglobin 29.8 pg (28.0-34.0); Mean Corpuscular Volume 92.9 fL (81-99); Mean Platelet Volume 11.2 fL (7.4-10.4); Monocytes # 0.5 10^3/uL (0.2-0.9); Monocytes % 6.1 %; Neutrophils # 4.48 10^3/uL (1.8-7.7); Nucleated Red Blood Cells % 0 %; Platelet Count 233 10^3/cmm (130-400); Red Blood Count 4.06 10^6/uL (4.1-5.3); Red Cell Distribution Width 12.9 % (12.1-15.1); White Blood Count 7.7 10^3/uL (4.0-10.0)
--- NOTE | 2020-05-08 05:00 | USCV_ITS ---
Ceci Manning Age: 60 Gender: F : 1960 Exam Date: 05/08/2020 06:19 Ordering Phys: Renato Garcia MD Technologist: Merced Martinez Exam Location: [facility] Indication: SYNCOPAL EPISODE BRADYCARDIA CHEST PAIN BP: 95 / 57 HR: 50 Rhythm: Sinus Technical Quality: Adequate MEASUREMENTS (Male / Female) Normal Values 2D ECHO LV Diastolic Diameter PLAX 4.6 cm 4.2 - 5.9 / 3.9 - 5.3 cm LV Systolic Diameter PLAX 2.5 cm LV Chamber Size 3.6 cm IVS Diastolic Thickness 1.0 cm 0.6 - 1.0 / 0.6 - 0.9 cm IVS Systolic Thickness 1.5 cm LVPW Diastolic Thickness 0.7 cm 0.6 - 1.0 / 0.6 - 0.9 cm LVPW Systolic Thickness 1.6 cm RV Chamber Size 3.2 cm LVOT Diameter 2.0 cm LV Ejection Fraction 2D Teich 78.0 % LV Ejection Fraction MOD 2C 75.0 % LV Ejection Fraction 2C AL 77.7 % LA Diameter 3.1 cm LA Width 2.6 cm LA Height 4.2 cm RA Width 3.3 cm RA Height 3.4 cm Aorta at Sinotubular Diameter 2.8 cm M-MODE LV Diastolic Diameter MM 4.3 cm 4.2 - 5.9 / 3.9 - 5.3 cm LV Systolic Diameter MM 2.8 cm LV Ejection Fraction MM Teich 65.7 % IVS Diastolic Thickness MM 0.9 cm 0.6 - 1.0 / 0.6 - 0.9 cm IVS Systolic Thickness MM 1.7 cm LVPW Diastolic Thickness MM 1.0 cm 0.6 - 1.0 / 0.6 - 0.9 cm LVPW Systolic Thickness MM 1.6 cm RV Diastolic Diameter MM 1.3 cm Aortic Annulus Diameter 3.0 cm LA Ao Ratio MM 1.1 MV E Point Septal Separation 0.6 cm DOPPLER AV Peak Velocity 146.0 cm/s LVOT Peak Velocity 83.0 cm/s AV Area Cont Eq vti 2.0 cm squared AV Area Cont Eq pk 1.8 cm squared MV Area PHT 3.9 cm squared Mitral E to A Ratio 1.8 MV E' Velocity 11.0 cm/s Mitral E to MV E' Ratio 8.3 Mitral E to LV E' Lateral Ratio 7.8 Mitral E to LV E' Septal Ratio 8.9 TR Peak Velocity 201.7 cm/s TR Peak Gradient 16.3 mmHg TR Mean Velocity 157.3 cm/s TR Mean Gradient 10.4 mmHg TR Velocity Time Integral 63.6 cm TV Peak E Velocity 80.0 cm/s Right Atrial Pressure 3.0 mmHg Pulmonary Artery Systolic Pressu 19.3 mmHg PV Peak Velocity 57.0 cm/s RV Acceleration Time 0.2 s RV Ejection Time 0.4 s RV AcT/ET 0.4 FINDINGS Left Ventricle Normal left ventricular size and systolic function, EF 65 %. No regional wall motion abnormalities. Right Ventricle The right ventricle is normal in size and function. Right Atrium The right atrium is normal in size. Left Atrium The left atrium is normal in size. Thickened interatrial septum, suggestive of lipomatous dystrophy Mitral Valve No gross abnormalities noted Aortic Valve No gross abnormalities noted . Tricuspid Valve Trace to mild tricuspid valve regurgitation. Pulmonic Valve No gross abnormalities noted Pericardium Normal pericardium without effusion. Aorta Normal ascending aorta dimension. CONCLUSIONS Normal left ventricular size and systolic function, EF 65 %. No regional wall motion abnormalities. Trace to mild tricuspid valve regurgitation. No significant stenotic lesions. Normal chamber sizes. Thickened interatrial septum, suggestive of lipomatous dystrophy There is no pericardial effusion. There are no intracardiac masses. There are no prior echocardiogram studies to compare. Dr Park Raya MD FACC (Electronically Signed) Final Date: 08 May 2020 09:46 S
[2020-05-08 05:20] LABS: Alanine Aminotransferase 13 U/L (0-33); Albumin Level 3.3 g/dL (3.5-5.2); Alkaline Phosphatase 51 IU/L (35-105); Aspartate Amino Transferase 18 U/L (0-32); Blood Urea Nitrogen 17 mg/dL (6-20); Calcium 8.5 mg/dL (8.5-10.5); Carbon Dioxide 24 mmol/L (22-29); Chloride 109 mmol/L (98-107); Globulin 2.7 g/dL (1.3-4.6); Glomerular Filtration Rate 102.7 mL/min (90-130); Glucose 99 mg/dL (65-115); Magnesium 1.9 mg/dL (1.7-2.3); Osmolality Calculated 286 mOsm/kg (285-295); Phosphorus 3.2 mg/dL (2.5-4.5); Sodium 140 mmol/L (136-145); Total Bilirubin 0.5 mg/dL (0.15-1.2)
--- NOTE | 2020-05-08 07:02 | ECG_ITS ---
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 Interpretive Statements NAME OF STUDY: EXERCISE SESTAMIBI STRESS TEST INDICATION: BRADYCARDIA/SYNCOPE PROCEDURE: The baseline electrocardiogram showed sinus bradycardia with a heart rate of [address]-T's.. At the baseline, the patient's blood pressure was 156/76 mm Hg with a heart rate of 53. The patient exercised for 8 minutes and 51 seconds on a standard Garth protocol. Patient attained a maximum heart rate of 138 beats per minute(85 % of the maximum predicted heart rate) with a blood pressure at the peak exercise of 207/80 mm Hg. The EKG at the peak exercise revealed no significant changes. Patient did not have any chest pain or any significant arrhythmis with the exercise Sestamibi was injected 1 minute prior to the peak exercise During the recovery phase, there were no new changes. Blood pressure at the end of the recovery phase was 124/74 mm Hg with a heart rate of 83 per minute. CONCLUSION: 1. No significant EKG changes with the [treadmill exercise 2. No exercise-induced chest pain or cardiac arrhythmia. Hypertensive response to exercise 3. Good exercise tolerance, attained a maximum of 10.2 METs 4. Sestamibi/Sestamibi perfusion results pending; see separate report. Electronically Signed On 05-11-2020 12:18:55 CDT by Park Raya M.D. [id number]
--- NOTE | 2020-05-08 07:03 | NMCV_ITS ---
NM felix perf SPECT r/s* [id number] Ceci Manning Age: 60 Gender: F : 1960 Exam Date: 05/08/2020 10:36 Ordering Phys: Park Raya MD ([email or web address]) Technologist: SRIKANTH Lancaster Exam Location: [facility] Indications: SYNCOPE STRESS TEST Please see separate stress test report [facility] for full findings IMAGE PROTOCOL Rest/Stress 1 Exercise Day Radiopharmaceutical Dose (mCi) Administration Site Administered by Rest: Tc-99m 10.6 IV SRIKANTH Lancaster Sestamibi Stress:Tc-99m 32.5 IV SRIKANTH Walker Sestamibi Rest: 08-May-2020 60 Discovery 630 Stress: 08-May-2020 30 Discovery 630 Radiopharmaceutical was injected at 85 % maximum heart rate. Images obtained in supine and prone position. SPECT RESULTS Technical Quality: Excellent Raw Data Analysis: Normal Image Corrections: No attenuation or motion correction applied Summed Stress Score: 6 Summed Rest Score: 11 Summed Difference Score: 0 PERFUSION FINDINGS Patchy areas of decreased tracer uptake were noted in the apical lateral, mid inferolateral and apical segments. No significant reversibility was noted in these regions. FUNCTIONAL RESULTS (calculated via Gated SPECT) Stress Image LV EF (%): 74 Stress EDV (mL):80 TID: 0.94 Stress ESV (mL):21 FUNCTIONAL FINDINGS: Segmental wall motion analysis revealing no gross wall motion abnormalities. IMPRESSIONS 1. Myocardial perfusion may revealing patchy areas of persistent decreased tracer uptake in the apical and inferolateral regions, suggestive of myocardial scarring versus attenuation artifacts. 2. Normal LV ejection fraction of 74%. 3. LV wall motion analysis revealing no gross wall motion normalities. 4. Normal LV volume. No significant coronary ischemia, based on the above findings Dr Park Raya MD FAC (Electronically Signed) Final Date: 08 May 2020 13:48 S
--- NOTE | 2020-05-08 10:18 | PC.CHAP ---
Pastoral Care Encounter/Spiritual Assessment Type of Contact [] Declined train operations manager visit [] Patient/Family/Request visit [] Outpatient visit [] Follow-up visit [] Physician referral [] Code/Alert [x] Routine visit [] Staff referral [] Actively dying [] Patient sleeping [] Family support [] [] Out of room [] Palliative care [] [] Receiving care in room [] Pre-surgical visit [] Trauma [] Long length of stay [] ICU visit [] Other: Relational/Emotional Strength [] Patient feels connected with others/family/visitors/staff [] Distress [] Loneliness/isolation [] Abandonment Spirituality of Patient [] Person of Ju [] Attends Restorationist of their Ju [] Believes in Prayer [] Reads Bible or Anabaptism materials [] There are Spiritual issues to be addressed Paperhanger Assistant Interventions [x] Prayer [x] Active listening [x] Non-anxious presence [x] Spiritual/emotional support [] Crisis/trauma care [] Spiritual counseling [] Bereavement support [] Provided bereavement packet [] Provided Bible/devotional materials [] Provided toy/stuffed animal, coloring book to patient or family member [] Provided Communion [] Anointing/[place] [] Salvation [x] Completed spiritual assessment [] Other: Impact on Illness or Injury [] Angry [] Fearful [] Anxious [] Often cries [] Exhaustion [] Unable to work [] Unable to attend rastafarian [] Unable to walk/stand [] Unable to read [] Unable to drive [] Unable to eat/drink [] Unable to sleep [] Unable to be with family [] Patient intubated [] Other: Summary patient resting well. Time spent with patient 5 min
[2020-05-08] MEDS: lactated ringers 1,000 ML 50 ML IV (15:00)
[2020-05-08] MEDS: acetaminophen 325 mg Tablet 650 MG PO (15:01)
--- NOTE | 2020-05-08 15:21 | PM.PN ---
Subjective Subjective: Interval history: Ms. ames is doing well this morning. Denies shortness of breath or chest pain. Denies any lightheadedness or dizziness. She had sestamibi Lexiscan performed today showing no evidence of significant reversibility. Her echocardiogram showed EF 65% with no regional wall motion abnormality. Vitals/I&O/Wt Last Vital Signs Temp 98.1 F 05/08/20 10:45 Pulse 83 05/08/20 12:55 Resp 18 05/08/20 10:45 BP 124/74 05/08/20 12:55 Pulse Ox 100 05/08/20 10:45 05/08/20 05/08/20 05/08/20 06:59 14:59 22:59 Intake Total 1000 / 1000 Balance 1000 / 1000 Weight last 48 hrs Weight 61.462 kg Weight 60.328 kg Physical Exam Const: COMMON NORMALS: no acute distress and patient oriented x3 Resp: COMMON NORMALS: normal respiratory effort and clear to auscultation bilaterally AUSCULTATION: clear to auscultation bilaterally Cardio: COMMON NORMALS: regular rate, regular rhythm and S2 normal heart sound present RATE: regular rate RHYTHM: regular rhythm HEART SOUNDS: S2 normal heart sound present OTHER: No lower extremity edema GI: COMMON NORMALS: Normal to inspection, nondistended, normoactive bowel sounds present, Soft to palpation and non-tender PALPATION: Yes Soft to palpation Neuro: COMMON NORMALS: patient oriented x3 and no focal motor deficits Data : 05/08/20 04:25 05/08/20 04:25 A&P Assessment and plan (1) Sinus bradycardia: Status: Acute (2) Hypertension: Status: Acute Qualifiers: Hypertension type: essential hypertension Qualified Code(s): I10 - Essential (primary) hypertension (3) GERD (gastroesophageal reflux disease): Status: Acute (4) Hypothyroidism: Status: Acute Qualifiers: Hypothyroidism type: acquired Qualified Code(s): E03.9 - Hypothyroidism, unspecified (5) Syncope and collapse: Status: Acute (6) Anginal equivalent: Status: Acute (7) Hypokalemia: Status: Acute (8) Hyperglycemia: Status: Acute (9) Hypophosphatemia: Status: Acute Additional A&P Information Monitor closely on telemetry. We will discuss with Dr. Ryaa after his evaluation. Attestations Medical Necessity Statement*: Patient with syncopal episode and significant bradycardia requires close inpatient monitoring, treatment and evaluation. Time Spent in Patient Care: 16 - 35 minutes Coding Level of Care Code Acute Bilingual Speech Language Pathologist for Chg Fwd Diagnoses Sinus bradycardia R00.1 Hypertension I10 Hypertension type: essential hypertension GERD (gastroesophageal reflux disease) K21.9 Hypothyroidism E03.9 Hypothyroidism type: acquired Syncope and collapse R55 Anginal equivalent I20.8 Hypokalemia E87.6 Hyperglycemia R73.9 Hypophosphatemia E83.39
--- NOTE | 2020-05-08 16:04 | PM.PN ---
Subjective Subjective: Interval history: Patient has not had any chest pain or palpitations since last night. No unusual shortness of breath. Telemetry shows sinus bradycardia with a heart rate in the 40s and 50s. She underwent exercise sestamibi/sestamibi stress test today. She was found to have no evidence of ischemia, based on the perfusion scan. Medications: Reviewed: Yes Medication Review Details: Current Medications Acetaminophen (Tylenol) 650 mg PO Q6H PRN PRN Reason: MILD PAIN Last Admin: 05/08/20 15:01 Dose: 650 mg Documented by: Enoxaparin Sodium (Lovenox) 40 mg SUBCUT Q24H FORMERLY [facility], 1928–1983 Last Admin: 05/07/20 16:42 Dose: 40 mg Documented by: Esmolol HCl (Brevicbloc) 5 mg IV PRN PRN PRN Reason: See dose instructions Lactated Ringer's (Lactated Ringers) 1,000 mls @ 50 mls/hr IV .Q20H FORMERLY [facility], 1928–1983 Last Admin: 05/08/20 15:00 Dose: 50 mls/hr Documented by: Metoprolol Tartrate (Metoprolol Tartrate) 5 mg IV PRN PRN PRN Reason: See dose instructions Morphine Sulfate (Morphine) 2 mg IVP Q4H PRN PRN Reason: SEVERE PAIN Nitroglycerin (Nitrostat) 0.4 mg SUBLINGUAL Q5M PRN PRN Reason: CHEST PAIN Stop: 05/08/20 19:19 Ondansetron HCl (Zofran) 4 mg IVP Q6H PRN PRN Reason: NAUSEA AND VOMITING Pantoprazole Sodium (Protonix) 40 mg PO BID FORMERLY [facility], 1928[facility]1983 Last Admin: 05/08/20 09:00 Dose: Not Given Documented by: Trazodone HCl (Desyrel) 50 mg PO BEDTIME FOR[facility]LY [facility], [facility]1983 Last Admin: 05/08/20 00:01 Dose: 50 mg Documented by: Vitals/I&O/Wt Last Vital Signs Temp 98.2 F 05/08/20 15:38 Pulse 51 L 05/08/20 15:38 Resp 18 05/08/20 15:38 BP 115/72 05/08/20 15:38 Pulse Ox 96 05/08/20 15:38 05/08/20 05/08/20 05/08/20 06:59 14:59 22:59 Intake Total 1000 / 1000 Balance 1000 / 1000 Weight last 48 hrs Weight 135 lb 8 oz Weight 133 lb Physical Exam Narrative: EXAM NARRATIVE: GENERAL: The patient is alert and oriented times three. Not in any acute distress. HEENT: No significant pallor, icterus or lymphadenopathy. NECK: Trachea appears to be central. No masses noted. No JVD or thyromegaly appreciated. No carotid bruit. RESPIRATORY: Chest is symmetrical. No intercostals muscle retraction or any accessory muscle activation. There is no chest wall tenderness. Breath sounds are heard bilaterally. No rales or rhonchi heard. No evidence of any consolidation. BREASTS: Deferred. HEART: The PMI is in the 5th left intercostals space just inside the midclavicular line. No palpable precordial events. S1 and S2 are normal. No S3 or S4 heard. No pericardial rub or any click heard. ABDOMEN: No vessel pulsations or distention. No tenderness. No organomegaly appreciated. No abdominal bruit. Bowel sounds are normally heard. : Deferred. RECTAL: Deferred. LYMPHATIC: No lymphadenopathy noted in the neck or groin. EXTREMITIES: No edema or cyanosis. No clubbing. The pulses are symmetrical bilaterally. The radial, femoral, dorsalis pedis and the posterior tibial pulses are palpated and found to be in good volume and amplitude. MUSCULOSKELETAL: No acute joint deformities or swelling SKIN: There are no significant scars or skin rash noted. NEUROPSYCHIATRIC: The patient is alert and oriented x3. Appears to be in a good mood. The higher functions are grossly within normal limits. No tremors or rigidity noted. Data : 05/08/20 04:25 05/08/20 04:25 Echo: My impression: Echocardiogram done today revealed Normal left ventricular size and systolic function, EF 65 %. No regional wall motion abnormalities. Trace to mild tricuspid valve regurgitation. No significant stenotic lesions. Normal chamber sizes. Thickened interatrial septum, suggestive of lipomatous dystrophy There is no pericardial effusion. There are no intracardiac masses. There are no prior echocardiogram studies to compare. A&P Assessment and plan (1) Syncope and collapse: Etiology of the syncope is not clear at this time. Possibility of severe bradycardia causing this is a consideration. A vasovagal reaction also is a consideration. Currently she continues to have sinus bradycardia with a heart rate in the upper 40s and low 50s. No evidence of any high degree AV block. No evidence of coronary ischemia, based on the perfusion scan. Status: Acute (2) Atypical chest pain: Her chest pain with the bilateral arm tingling, may suggest a cardiac etiology. The EKG does not reveal any acute changes. The echocardiogram was unremarkable. Status: Acute (3) Bradycardia: Patient apparently has a history of bradycardia. Whether the bradycardia is causing the syncopal episode or not is not clear at this time. This may need to be further evaluated. She will be closely monitored on telemetry. Status: Acute (4) Hypertension: Patient has a history of essential benign hypertension. Currently her blood pressure is in the normal range. May be continued on the current medications for the time being. Status: Acute Qualifiers: Hypertension type: essential hypertension Qualified Code(s): I10 - Essential (primary) hypertension (5) Hypothyroidism: Clinically she seems to be euthyroid. Her TSH is slightly elevated. May adjust the dose of the levothyroxine. Status: Acute Qualifiers: Hypothyroidism type: acquired Qualified Code(s): E03.9 - Hypothyroidism, unspecified Additional A&P Information I discussed with the patient and her , in detail, implications of the myocardial perfusion imaging results. Since she has no evidence of ischemia, if she continues remain stable, may be discharged home from a cardiac standpoint. Pt needs to be scheduled for an outpatient event monitoring for 21 days. I may see her in the office in 1 month. Based on the event monitor findings, further recommendations will be made Discussed the recommendations with Dr. Garcia Attestations Medical Necessity Statement*: Possible discharge home today Coding Level of Care Code Acute Brassiere Cup Mold Cutter for [facility] Diagnoses Syncope and collapse R55 Atypical chest pain R07.89 Bradycardia R00.1 Hypertension I10 Hypertension type: essential hypertension Hypothyroidism E03.9 Hypothyroidism type: acquired
--- NOTE | 2020-05-08 18:17 | P.DS_ITS ---
Discharge Providers Date of Admission: 05/07/20 15:57 Date of Discharge: May 08, 2020 Attending Provider at Admission: Renato Garcia MD Attending Provider at Discharge: Renato Garcia MD Primary Care Provider: Acosta Wild DO Diagnoses at Discharge Discharge Diagnosis (1) Syncope and collapse: Status: Acute (2) Atypical chest pain: Status: Acute (3) Bradycardia: Status: Acute (4) Hypertension: Status: Acute Qualifiers: Hypertension type: essential hypertension Qualified Code(s): I10 - Essential (primary) hypertension (5) Hypothyroidism: Status: Acute Qualifiers: Hypothyroidism type: acquired Qualified Code(s): E03.9 - Hypothyroidism, unspecified Reason for Visit Reason for Visit: SYNCOPE Hospital Course Discharge Summary: Patient presented with syncopal episode and significant bradycardia. She reported chest pain and underwent sestamibi Lexiscan after NH was ruled out. Test showed no significant evidence of coronary artery reversibility. Discussed with Dr. Raya this evening and we will go ahead and dismiss patient home and request return tomorrow to cardiology clinic for placement of 21-day event monitoring. Patient reports GERD symptoms therefore meloxicam and H2 pete will be discontinued and patient will be given 1 month of omeprazole. Patient to use Tylenol for pain control. Patient had physical exam performed earlier this morning and outlined in afternoon note. Discharge Data Data Completed and Pending: Completed Studies During Hospitalization Category Date Time Status CT head wo con* 7 0450 Urgent Cat Scan 05/07/20 11:[address] MIBI [Sestamibi Stress Test Reque st Exams 05/08/20 07:02 Draft ] Routine XR chest 1V alexis ble 66088 Urgent Exams 05/07/20 11:05 Completed NM felix perf SPECT r/s* 31832 Routin e Nuc Med 05/08/20 07:03 Completed CV echo complete* [id number] Routine Ultrasound 05/08/20 05:00 Completed Pending at discharge Category Date Time Status Complete Blood Co unt w/Auto AM LABS Lab 05/09/20 04:00 Ordered Complete Blood Co unt w/Auto AM LABS Lab 05/10/20 04:00 Ordered Comprehensive Met abolic Panel AM LA BS Lab 05/09/20 04:00 Ordered Comprehensive Met abolic Panel AM LA BS Lab 05/10/20 04:00 Ordered Magnesium AM LABS Lab 07/30/20 04:00 Ordered Magnesium AM LABS Lab 05/10/20 04:00 Ordered Labs from last 24 hours 05/08/20 05/08/20 04:25 04:25 WBC 7.7 RBC 4.06 L Hgb 12.1 Hct 37.7 MCV 92.9 MCH 29.8 MCHC 32.1 RDW 12.9 Plt Count 233 MPV 11.2 H Neut % (Auto) 58.0 Lymph % (Auto) 33.9 [place] % (Auto) 6.1 Eos % (Auto) 1.3 Baso % (Auto) 0.6 Neut # (Auto) 4.48 Lymph # (Auto) 2.6 [place] # (Auto) 0.5 Eos # (Auto) 0.1 Baso # (Auto) 0.1 Nucleated RBC % (a uto) 0 Nucleated RBCs # 0.0 Sodium 140 Potassium 4.0 Chloride 109 H Carbon Dioxide 24 Anion Gap 11.0 BUN 17 Creatinine 0.6 GFR Calculation 102.7 Glucose 99 Calculated Osmolal ity 286 Calcium 8.5 Phosphorus 3.2 D Magnesium 1.9 Total Bilirubin 0.5 AST 18 ALT 13 Alkaline Phosphata se 51 Total Protein 6.0 L Albumin 3.3 L Globulin 2.7 Vitals: Last Vital Signs Temp 98.2 F 05/08/20 15:38 Pulse 51 L 05/08/20 15:38 Resp 18 05/08/20 15:38 BP 115/72 05/08/20 15:38 Pulse Ox 96 05/08/20 15:38 Discharge Plan Discharge Patient Disposition: Home Condition: Good Prescriptions: New omeprazole 40 mg capsule,delayed release(DR/EC) 40 mg PO DAILY Qty: 30 RF: 0 Continued Tylenol 325 mg Tablet 325 mg PO QID PRN (Reason: Pain) RF: 0 trazodone 100 mg tablet 50 mg PO BEDTIME RF: 0 diazepam 2 mg tablet 2 mg PO DAILY RF: 0 levothyroxine 125 mcg tablet 125 mcg PO DAILY RF: 0 estradiol 0.5 mg tablet 0.5 mg PO DAILY RF: 0 lisinopril-hydrochlorothiazide 10-12.5 mg tablet 1 tab PO DAILY RF: 0 Discontinued meloxicam 15 mg tablet 15 mg PO DAILY RF: 0 famotidine 20 mg tablet 20 mg PO BID RF: 0 Discharge Orders: Discharge Order (Routine); Ordered 05/08/20 Ordered By: Renato Garcia Referrals: Acosta Wild, DO [Primary Care Provider] - (PLEASE CALL FOR APPOINTMENT [phone]) Discharge Diet: Usual diet Discharge Activity: Increase activity as tolerated Activity Restrictions/Additional Instructions: Please call your doctor or present to emergency department if your condition worsens or you develop diarrhea, lightheadedness, fatigue or see blood in your stool or black stool. Please keep blood pressure and heart rate log 3 times daily to present to primary care physician next visit for medication adjustment. Please present to cardiac clinic tomorrow to have 21-day event monitor as we have discussed. Please discuss with your doctor to repeat TSH test in several weeks for reevaluation. Discharge Attestations Time Spent in Discharge Care*: less than 30 min Quality Metrics Clinical Quality Measures During this hospital stay, did patient experience: None Coding Level of Care Code Acute Resistance Brazer for Rima Lama Diagnoses Syncope and collapse R55 Atypical chest pain R07.89 Bradycardia R00.1 Hypertension I10 Hypertension type: essential hypertension Hypothyroidism E03.9 Hypothyroidism type: acquired
--- NOTE | 2020-05-08 19:51 | PC.NURSE ---
Patient discharge reviewed with patient by Moi GONZALES.IV removed intact. Patient in route to pick patient up. Patient is A&Ox3. Respirations even and non-labored on room.
== END 2020-05-08 20:08 | disposition home or self-care (01) | DRG 310 ==
LOC: ER 13:11 → MEDSURG 13:34
PROVIDERS: Family Medicine; Admitting Provider Internal Medicine; PCP Family Medicine; Visit Provider Internal Medicine
DX: R00.1 Bradycardia, unspecified (principal); I10 Essential (primary) hypertension; I20.8 Other forms of angina pectoris; K21.9 Gastro-esophageal reflux disease without esophagitis; E03.9 Hypothyroidism, unspecified; R73.9 Hyperglycemia, unspecified; E83.39 Other disorders of phosphorus metabolism; E87.6 Hypokalemia
CPT/HCPCS: 12345; 36415; 70450; 71045; 78452; 80053; 81003; 83605; 83690; 83735; 83880; 84100; 84443; 84484; 85025; 85378; 85610; 93005; 93017; 93306; 96372; 99283; A9500; G0378; J1650; J7030

== ENCOUNTER 2020-06-03 11:10 | Inpatient (IN) | payer BC, SELFPAY ==
[2020-06-03] VITALS (7 sets, daily range): BP systolic 139–161; BP diastolic 66–90; PULSE 46–68; RESP 16–20; TEMP 36.7; O2SAT 95–98; BMI 23.9
--- NOTE | 2020-06-03 11:28 | XRR_ITS ---
PROCEDURE INFORMATION: Exam: XR Chest, 1 View Exam date and time: 06/03/2020 11:42 AM Age: 60 years old Clinical indication: Other: Near syncope; Prior surgery; Surgery type: Breast; Patient HX: PT wearing a heart monitor TECHNIQUE: Imaging protocol: XR of the chest Views: 1 view. COMPARISON: CR XR chest 1V portable [id number] 05/07/2020 11:08 AM FINDINGS: Lungs: No lung consolidation or pulmonary edema. Pleural space: No pleural effusion or pneumothorax. Heart/Mediastinum: The cardiac silhouette is not enlarged. The mediastinal contours are normal. Bones/joints: Slight curvature of the thoracic spine convex to the right. XR/XR chest 1V portable [id number] IMPRESSION: No acute abnormality.
--- NOTE | 2020-06-03 11:28 | ECG_ITS ---
[facility] Test Date: 2020-06-03 Pat Name: Ceci Manning Department: Room: 107 Gender: Female Power Operator: : 1960 Requested By: Cheryl Ash Order Number: [id number] Sary MD: Can Wong M.D. Measurements Intervals [place] Rate: 54 P: 59 VT: 146 QRS: 4 QRSD: 88 T: 49 QT: 433 QTc: 413 Interpretive Statements SINUS BRADYCARDIA Compared to ECG 05/07/2020 17:00:20 No significant changes Electronically Signed On 06-04-2020 17:20:36 CDT by Can Wong M.D. [email or web address]
[2020-06-03] MEDS: lactated ringers 1,000 ML 999 ML IV (11:42)
[2020-06-03 11:48] LABS: Basophils # 0.1 10^3/uL (0.0-0.1); Basophils % 0.6 %; Eosinophils # 0.1 10^3/uL (0.0-0.8); Eosinophils % 0.6 %; Hematocrit 43.2 % (37.0-47.0); Hemoglobin 14.1 g/dL (11.5-15.3); Lymphocytes # 3.4 10^3/uL (0.8-4.8); Lymphocytes % 31.3 %; Mean Corpuscular HGB Conc 32.6 g/dL (30.0-36.0); Mean Corpuscular Hemoglobin 29.3 pg (28.0-34.0); Mean Corpuscular Volume 89.8 fL (81-99); Mean Platelet Volume 10.9 fL (7.4-10.4); Monocytes # 0.5 10^3/uL (0.2-0.9); Monocytes % 4.9 %; Neutrophils # 6.78 10^3/uL (1.8-7.7); Neutrophils % 62.3 %; Nucleated Red Blood Cells % 0 %; Platelet Count 326 10^3/cmm (130-400); Red Blood Count 4.81 10^6/uL (4.1-5.3); Red Cell Distribution Width 12.5 % (12.1-15.1); White Blood Count 10.9 10^3/uL (4.0-10.0)
[2020-06-03 11:59] LABS: Lactic Sepsis W/Reflex 1.4 mmol/L (0.5-2.2)
[2020-06-03 12:01] LABS: Troponin(5th) Baseline 7 ng/L (0-10)
[2020-06-03 12:04] LABS: Add Urine Microscopic? NO
[2020-06-03 12:06] LABS: Glucose Urine UA Norm (Normal); Protein Urine Neg (Negative); Urine Appearance Clear (CLEAR); Urine Color Yellow (Yellow); pH Urine 8 (5-7)
[2020-06-03 12:07] LABS: Bilirubin Urine Neg (NEGATIVE); Blood Urine Neg (Negative); Ketones Urine Negative (Negative); Leukocyte Esterase Urine Negative (Negative); Nitrate Urine Negative (Negative); Sulfosalicylic Acid Urine Negative (Negative); Urobilinogen Urine Norm (Negative)
[2020-06-03 12:10] LABS: Alanine Aminotransferase 17 U/L (0-33); Albumin Level 4.2 g/dL (3.5-5.2); Alkaline Phosphatase 69 IU/L (35-105); Anion Gap 15.8 (5-19); Aspartate Amino Transferase 19 U/L (0-32); Blood Urea Nitrogen 18 mg/dL (6-20); Calcium 10.2 mg/dL (8.5-10.5); Carbon Dioxide 24 mmol/L (22-29); Chloride 98 mmol/L (98-107); Globulin 3.1 g/dL (1.3-4.6); Glomerular Filtration Rate 85.9 mL/min (90-130); Glucose 118 mg/dL (65-115); NT Pro B Type Natriuretic Pept 237 pg/mL (0-125); Osmolality Calculated 276 mOsm/kg (285-295); Potassium 3.8 mmol/L (3.5-5.1); Sodium 134 mmol/L (136-145); Total Bilirubin 0.4 mg/dL (0.15-1.2); Total Protein 7.3 g/dL (6.6-8.7)
--- NOTE | 2020-06-03 12:57 | ED_ITS ---
HPI - SOB/Dyspnea General: Chief Complaint: Shortness of Breath/Dyspnea Stated Complaint: SOB Time Seen by Provider: 06/03/20 11:24 History of Present Illness: HPI Narrative: This patient is a 60-year-old female who presents today with weakness, near syncope, shortness of breath. She denies chest pain. This started about an hour prior to arrival while she was out in the heat and sun. Her tells me that she had a similar episode 4 weeks ago where she came here and was admitted to the hospital. She had a stress test at that time. She was put on an event monitor which just ended yesterday. She did not have any episodes while she was on the monitor. She does have a history of Lyme disease and questions whether this could be related. Her diagnosis with that was about 3 years ago. She has a history of hypothyroidism but that was also checked when she was here last and they did not feel that she needed to adjust her dose. She said she has not felt well for the past several days and has had a bit of an upset stomach for the past week. Her is concerned about her diet. She said she did diet over the past year and lost 70 pounds. She is now just on maintenance where she eats fruits and vegetables and lean proteins. She has not had any further or uncontrolled weight loss. She denies cough. She has had night sweats. No fever. With the episode she had a month ago her checked her pulse and noted that it was in the 30s. When EMS arrived it was in the 40s and in the hospital here it was mainly in the 50s. Today her pulse is in the 40s again. elicited complaint: shortness of breath Onset (ago): hour(s) (1) Timing: constant Severity: similar to previous episodes Exacerbating factors: nothing Relieving factors: nothing Associated symptoms: Reports palpitations; Deny abdominal pain, chest pain, fever(s), nausea or vomiting Review of Systems General: Reports: 10 or more systems reviewed and unremarkable except in HPI and below Const: Reports: fatigue, malaise and night sweats; Denies: fever(s) or chills Eyes: Denies: change in vision ENMT: Denies: odynophagia Card: Reports: palpitations, pre-syncope and dyspnea on exertion; Denies: chest pain or swelling of feet/ankles Resp: Reports: dyspnea; Denies: productive cough or non-productive cough GI: Denies: abdominal pain, nausea or vomiting : Denies: flank pain or difficulty voiding Musc: Denies: neck pain or back pain Skin/Breast: Denies: rash Neuro: Denies: headache(s), numbness in extremities or weakness in extremities Massimo/Lymph: Denies: easy bruising or easy bleeding PFSH ED PFSH: Medical History Atypical chest pain Borderline diabetes Fracture of lower extremity GERD (gastroesophageal reflux disease) Hiatal hernia Hypertension Hypothyroidism Migraine headache Rectal fistula Surgical History H/O hysterectomy with oophorectomy Hx laparoscopic cholecystectomy Family History (Updated 06/03/20 @ 19:18 by Park Raya MD) Mother Cancer Multiple myeloma CAD (coronary artery disease) Atrial fibrillation Stroke Father Cancer Prostate cancer, metastatic CAD (coronary artery disease) Had myocardial infarction Brother CAD (coronary artery disease) Atrial fibrillation Social History Smoking and tobacco status: never smoked Alcohol intake: never Household members: spouse Physical Exam Const: COMMON NORMALS: no acute distress, patient oriented x3, no limitations and alert GENERAL APPEARANCE: cooperative and comfortable HENMT: HEAD & SCALP: normal to inspection FACE & SINUS: normal facial exam Eye: GENERAL EYE: appearance normal, both eyes and all related structures Neck/C-Spine: COMMON NORMALS: supple, no meningeal signs and no JVD Chest: COMMONS NORMALS: normal inspection of the chest Resp: COMMON NORMALS: normal respiratory effort, No use of accessory muscles and clear to auscultation bilaterally AUSCULTATION: clear to auscultation bilaterally Cardio: COMMON NORMALS: no JVD, regular rate and No murmurs present (Cardio) RATE: regular rate and bradycardic GI: COMMON NORMALS: Normal to inspection, nondistended, normoactive bowel sounds present, Soft to palpation and non-tender INSPECTION: Yes normal to inspection AUSCULTATION: Yes normoactive bowel sounds PALPATION: Yes Soft to palpation Back/Pelvis: COMMON NORMALS: thoracic and lumbar spine normal to inspection Extremity: COMMON NORMALS: normal to inspection Neuro: COMMON NORMALS: patient oriented x3, moves all extremities, no focal motor deficits and no sensory deficits noted SENSORIUM/ORIENTATION: Yes alert MENINGEAL SIGNS: Yes no meningeal signs Psych: COMMON NORMALS: mental status grossly normal, cooperative and normal affect Skin: COMMON NORMALS: no rashes or lesions noted and turgor normal GENERAL SKIN EXAM: no rashes or lesions noted and turgor normal Course ED course: Patient remained bradycardic through the first part of her stay. After a few hours her heart rate was up into the 50s and even the low 60s at times but for the first several hours remained in the 40s. Blood pressures have been normal to high during the stay. Reviewed her prior records and spoke with Dr. Raya who would like to have her admitted overnight for observation and to discuss possible pacemaker placement. Spoke with Dr. Rick who will see her and admit her. He agreed with getting a COVID to just rule that out as a possibility. COVID is associated with some cardiac dysfunctions. Vital Signs: Vital signs: Vital Signs Temperature 98.0 F 06/04/20 11:01 Pulse Rate 68 06/04/20 11:01 Respiratory Rate 18 06/04/20 11:01 Blood Pressure 110/70 06/04/20 11:01 Pulse Oximetry 100 06/04/20 11:01 MDM - SOB/Dyspnea MDM Narrative: Medical decision making narrative: Bradycardia. Could be related to medication, electrolyte abnormality, history of Lyme, potentially COVID although less likely. No evidence of ischemia and recent negative stress test. EKG with sinus bradycardia, no evidence of block. Potential endocrine causes. Patient is compliant with her Synthroid. Lab Data: Labs: Lab Results 06/03/20 06/03/20 06/03/20 Range/Units 11:20 11:20 11:20 WBC 10.9 H (4.0-10.0) 10^3/ uL RBC 4.81 (4.1-5.3) 10^6/u L Hgb 14.1 (11.5-15.3) g/dL Hct 43.2 (37.0-47.0) % MCV 89.8 (81-99) fL MCH 29.3 (28.0-34.0) pg MCHC 32.6 (30.0-36.0) g/dL RDW 12.5 (12.1-15.1) % Plt Count 326 (130-400) 10^3/c mm MPV 10.9 H (7.4-10.4) fL Neut % (Auto) 62.3 % Lymph % (Auto) 31.3 % [place] % (Auto) 4.9 % Eos % (Auto) 0.6 % Baso % (Auto) 0.6 % Neut # (Auto) 6.78 (1.8-7.7) 10^3/u L Lymph # (Auto) 3.4 (0.8-4.8) 10^3/u L [place] # (Auto) 0.5 (0.2-0.9) 10^3/u L Eos # (Auto) 0.1 (0.0-0.8) 10^3/u L Baso # (Auto) 0.1 (0.0-0.1) 10^3/u L Nucleated RBC % (a uto) 0 % Nucleated RBCs # 0.0 /100WBC ESR (0-15) mm/hr Sodium 134 L (136-145) mmol/L Potassium 3.8 (3.5-5.1) mmol/L Chloride 98 (98-107) mmol/L Carbon Dioxide 24 (22-29) mmol/L Anion Gap 15.8 (5-19) BUN 18 (6-20) mg/dL Creatinine 0.7 (0.5-0.9) mg/dL GFR Calculation 85.9 L (90-130) mL/min Glucose 118 H (65-115) mg/dL Estimat Average Gl ucose Hemoglobin A1c (4.0-6.0) % Calculated Osmolal ity 276 L (285-295) mOsm/k g Lactic Acid 1.4 (0.5-2.2) mmol/L Calcium 10.2 (8.5-10.5) mg/dL Total Bilirubin 0.4 (0.15-1.2) mg/dL AST 19 (0-32) U/L ALT 17 (0-33) U/L Alkaline Phosphata se 69 (35-105) IU/L Troponin T Baselin e (0-10) ng/L Troponin T 120 Min algaaciq (0-10) ng/L Delta Troponin T (0-10) ABS# C-Reactive Protein (0.0-4.9) mg/L NT-Pro-B Natriuret Pep 237 H (0-125) pg/mL Total Protein 7.3 (6.6-8.7) g/dL Albumin 4.2 (3.5-5.2) g/dL Globulin 3.1 (1.3-4.6) g/dL Triglycerides (0-150) mg/dL Cholesterol (0-200) mg/dL LDL Cholesterol, C alc (50-129) mg/dL HDL Cholesterol (60-100) mg/dL LDL/HDL Ratio (0.00-3.22) RATI O Cholesterol/HDL Ra charisse (0.0-4.40) mg/dL Procalcitonin (0-0.5) ng/mL TSH (0.27-4.20) uIU/ mL Urine Color (Yellow) Urine Appearance (CLEAR) Urine pH (5-7) Ur Specific Gravit y (1.005-1.030) Urine Protein (Negative) Urine Glucose (UA) (Normal) Urine Ketones (Negative) Urine Blood (Negative) Urine Nitrate (Negative) Urine Bilirubin (NEGATIVE) Prot Sulfosalicyli c Acd (Negative) Urine Urobilinogen (Negative) mg/dL Ur Leukocyte Dorys ase (Negative) Lyme IgG (Western Blot 2) index SARS-CoV-2 Ag (Rap id) (Negative) 06/03/20 06/03/20 06/03/20 Range/Units 11:20 11:20 11:20 WBC (4.0-10.0) 10^3/ uL RBC (4.1-5.3) 10^6/u L Hgb (11.5-15.3) g/dL Hct (37.0-47.0) % MCV (81-99) fL MCH (28.0-34.0) pg MCHC (30.0-36.0) g/dL RDW (12.1-15.1) % Plt Count (130-400) 10^3/c mm MPV (7.4-10.4) fL Neut % (Auto) % Lymph % (Auto) % [place] % (Auto) % Eos % (Auto) % Baso % (Auto) % Neut # (Auto) (1.8-7.7) 10^3/u L Lymph # (Auto) (0.8-4.8) 10^3/u L [place] # (Auto) (0.2-0.9) 10^3/u L Eos # (Auto) (0.0-0.8) 10^3/u L Baso # (Auto) (0.0-0.1) 10^3/u L Nucleated RBC % (a uto) % Nucleated RBCs # /100WBC ESR 19 H (0-15) mm/hr Sodium (136-145) mmol/L Potassium (3.5-5.1) mmol/L Chloride (98-107) mmol/L Carbon Dioxide (22-29) mmol/L Anion Gap (5-19) BUN (6-20) mg/dL Creatinine (0.5-0.9) mg/dL GFR Calculation (90-130) mL/min Glucose (65-115) mg/dL Estimat Average Gl ucose Hemoglobin A1c (4.0-6.0) % Calculated Osmolal ity (285-295) mOsm/k g Lactic Acid (0.5-2.2) mmol/L Calcium (8.5-10.5) mg/dL Total Bilirubin (0.15-1.2) mg/dL AST (0-32) U/L ALT (0-33) U/L Alkaline Phosphata se (35-105) IU/L Troponin T Baselin e 7 (0-10) ng/L Troponin T 120 Min algaaciq (0-10) ng/L Delta Troponin T (0-10) ABS# C-Reactive Protein (0.0-4.9) mg/L NT-Pro-B Natriuret Pep (0-125) pg/mL Total Protein (6.6-8.7) g/dL Albumin (3.5-5.2) g/dL Globulin (1.3-4.6) g/dL Triglycerides 94 (0-150) mg/dL Cholesterol 199 (0-200) mg/dL LDL Cholesterol, C alc 128 (50-129) mg/dL HDL Cholesterol 52 L (60-100) mg/dL LDL/HDL Ratio 2.46 (0.00-3.22) RATI O Cholesterol/HDL Ra charisse 3.83 (0.0-4.40) mg/dL Procalcitonin (0-0.5) ng/mL TSH (0.27-4.20) uIU/ mL Urine Color (Yellow) Urine Appearance (CLEAR) Urine pH (5-7) Ur Specific Gravit y (1.005-1.030) Urine Protein (Negative) Urine Glucose (UA) (Normal) Urine Ketones (Negative) Urine Blood (Negative) Urine Nitrate (Negative) Urine Bilirubin (NEGATIVE) Prot Sulfosalicyli c Acd (Negative) Urine Urobilinogen (Negative) mg/dL Ur Leukocyte Dorys ase (Negative) Lyme IgG (Western Blot 2) index SARS-CoV-2 Ag (Rap id) (Negative) 06/03/20 06/03/20 06/03/20 Range/Units 11:20 11:20 11:20 WBC (4.0-10.0) 10^3/ uL RBC (4.1-5.3) 10^6/u L Hgb (11.5-15.3) g/dL Hct (37.0-47.0) % MCV (81-99) fL MCH (28.0-34.0) pg MCHC (30.0-36.0) g/dL RDW (12.1-15.1) % Plt Count (130-400) 10^3/c mm MPV (7.4-10.4) fL Neut % (Auto) % Lymph % (Auto) % [place] % (Auto) % Eos % (Auto) % Baso % (Auto) % Neut # (Auto) (1.8-7.7) 10^3/u L Lymph # (Auto) (0.8-4.8) 10^3/u L [place] # (Auto) (0.2-0.9) 10^3/u L Eos # (Auto) (0.0-0.8) 10^3/u L Baso # (Auto) (0.0-0.1) 10^3/u L Nucleated RBC % (a uto) % Nucleated RBCs # /100WBC ESR (0-15) mm/hr Sodium (136-145) mmol/L Potassium (3.5-5.1) mmol/L Chloride (98-107) mmol/L Carbon Dioxide (22-29) mmol/L Anion Gap (5-19) BUN (6-20) mg/dL Creatinine (0.5-0.9) mg/dL GFR Calculation (90-130) mL/min Glucose (65-115) mg/dL Estimat Average Gl ucose 105 Hemoglobin A1c 5.3 (4.0-6.0) % Calculated Osmolal ity (285-295) mOsm/k g Lactic Acid (0.5-2.2) mmol/L Calcium (8.5-10.5) mg/dL Total Bilirubin (0.15-1.2) mg/dL AST (0-32) U/L ALT (0-33) U/L Alkaline Phosphata se (35-105) IU/L Troponin T Baselin e (0-10) ng/L Troponin T 120 Min algaaciq (0-10) ng/L Delta Troponin T (0-10) ABS# C-Reactive Protein 3.8 (0.0-4.9) mg/L NT-Pro-B Natriuret Pep (0-125) pg/mL Total Protein (6.6-8.7) g/dL Albumin (3.5-5.2) g/dL Globulin (1.3-4.6) g/dL Triglycerides (0-150) mg/dL Cholesterol (0-200) mg/dL LDL Cholesterol, C alc (50-129) mg/dL HDL Cholesterol (60-100) mg/dL LDL/HDL Ratio (0.00-3.22) RATI O Cholesterol/HDL Ra charisse (0.0-4.40) mg/dL Procalcitonin 0.02 (0-0.5) ng/mL TSH 0.88 (0.27-4.20) uIU/ mL Urine Color (Yellow) Urine Appearance (CLEAR) Urine pH (5-7) Ur Specific Gravit y (1.005-1.030) Urine Protein (Negative) Urine Glucose (UA) (Normal) Urine Ketones (Negative) Urine Blood (Negative) Urine Nitrate (Negative) Urine Bilirubin (NEGATIVE) Prot Sulfosalicyli c Acd (Negative) Urine Urobilinogen (Negative) mg/dL Ur Leukocyte Dorys ase (Negative) Lyme IgG (Western Blot 2) <0.90 index SARS-CoV-2 Ag (Rap id) (Negative) 08/24/20 08/24/20 08/24/20 Range/Units 11:51 13:17 13:45 WBC (4.0-10.0) 10^3/ uL RBC (4.1-5.3) 10^6/u L Hgb (11.5-15.3) g/dL Hct (37.0-47.0) % MCV (81-99) fL MCH (28.0-34.0) pg MCHC (30.0-36.0) g/dL RDW (12.1-15.1) % Plt Count (130-400) 10^3/c mm MPV (7.4-10.4) fL Neut % (Auto) % Lymph % (Auto) % [place] % (Auto) % Eos % (Auto) % Baso % (Auto) % Neut # (Auto) (1.8-7.7) 10^3/u L Lymph # (Auto) (0.8-4.8) 10^3/u L [place] # (Auto) (0.2-0.9) 10^3/u L Eos # (Auto) (0.0-0.8) 10^3/u L Baso # (Auto) (0.0-0.1) 10^3/u L Nucleated RBC % (a uto) % Nucleated RBCs # /100WBC ESR (0-15) mm/hr Sodium (136-145) mmol/L Potassium (3.5-5.1) mmol/L Chloride (98-107) mmol/L Carbon Dioxide (22-29) mmol/L Anion Gap (5-19) BUN (6-20) mg/dL Creatinine (0.5-0.9) mg/dL GFR Calculation (90-130) mL/min Glucose (65-115) mg/dL Estimat Average Gl ucose Hemoglobin A1c (4.0-6.0) % Calculated Osmolal ity (285-295) mOsm/k g Lactic Acid (0.5-2.2) mmol/L Calcium (8.5-10.5) mg/dL Total Bilirubin (0.15-1.2) mg/dL AST (0-32) U/L ALT (0-33) U/L Alkaline Phosphata se (35-105) IU/L Troponin T Baselin e (0-10) ng/L Troponin T 120 Min algaaciq 6.78 (0-10) ng/L Delta Troponin T -0.22 L (0-10) ABS# C-Reactive Protein (0.0-4.9) mg/L NT-Pro-B Natriuret Pep (0-125) pg/mL Total Protein (6.6-8.7) g/dL Albumin (3.5-5.2) g/dL Globulin (1.3-4.6) g/dL Triglycerides (0-150) mg/dL Cholesterol (0-200) mg/dL LDL Cholesterol, C alc (50-129) mg/dL HDL Cholesterol (60-100) mg/dL LDL/HDL Ratio (0.00-3.22) RATI O Cholesterol/HDL Ra charisse (0.0-4.40) mg/dL Procalcitonin (0-0.5) ng/mL TSH (0.27-4.20) uIU/ mL Urine Color Yellow (Yellow) Urine Appearance Clear (CLEAR) Urine pH 8 H (5-7) Ur Specific Gravit y 1.020 (1.005-1.030) Urine Protein Neg (Negative) Urine Glucose (UA) Norm (Normal) Urine Ketones Negative (Negative) Urine Blood Neg (Negative) Urine Nitrate Negative (Negative) Urine Bilirubin Neg (NEGATIVE) Prot Sulfosalicyli c Acd Negative (Negative) Urine Urobilinogen Norm (Negative) mg/dL Ur Leukocyte Dorys ase Negative (Negative) Lyme IgG (Western Blot 2) index SARS-CoV-2 Ag (Rap id) Negative (Negative) Discharge Plan Discharge Patient Disposition: Placed in Observation Admit Provider: Crispin Rick Clinical Impression: Sinus bradycardia, Near syncope Condition: Stable Referrals: Acosta Wild DO [Primary Care Provider] - Discharge Date/Time: 06/03/20 14:58 Coding Level of Care Code 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
--- NOTE | 2020-06-03 13:28 | ECG_ITS ---
[facility] Test Date: 2020-06-03 Pat Name: Ceci Manning Department: Room: Gender: Female Operations Officer: : 1960 Requested By: Cheryl Ash Order Number: [id number] Sary MD: Can Wong M.D. Measurements Intervals [place] Rate: 50 P: 66 MS: 155 QRS: -5 QRSD: 102 T: 56 QT: 503 QTc: 460 Interpretive Statements SINUS BRADYCARDIA MODERATE ST DEPRESSION [0.05+ mV ST DEPRESSION] PROLONGED QT INTERVAL Compared to ECG 05/07/2020 17:00:20 ST (T wave) deviation now present Prolonged QT interval now present Electronically Signed On 06-04-2020 17:28:57 CDT by Can Wong M.D. [email or web address] hospital [email or web address] [id number]
[2020-06-03 13:40] LABS: Troponin 5 2HR 6.78 ng/L (0-10)
[2020-06-03 13:41] LABS: Troponin 5 2HR Delta -0.22 ABS# (0-10)
--- NOTE | 2020-06-03 14:04 | PC.NURSE ---
COVID nasopharyngeal swab collected at this time. Swab taken to lab at this time for testing.
--- NOTE | 2020-06-03 14:13 | PM.HP ---
Providers/Chief Complaint Primary Care Provider: Acosta Wild DO Chief Complaint: SOB History of Present Illness Ceci Manning is a 60 year old female with a past medical history of Lyme disease, GERD, hypertension, hypothyroidism, migraines, who presents to [facility] due to fatigue, malaise, lightheadedness, chest palpitations, shortness of breath. Recently patient was admitted and discharged from [facility] May 08, 2020, for syncopal episode, had a cardiac evaluation which was within normal limits, was discharged with a Holter monitor, she finished a Holter monitor yesterday. Patient tells me that for the last 3 days she is just not been feeling well, fatigue, malaise, muscle aches and pains, multiple joint pains. No fevers, no chills, no known exposure to COVID-19, but she did travel down to near [facility] to drop off her son in college. Patient states that she woke up early this morning around 630, nothing out of the ordinary, did continue to feel ill, had breakfast, she went out with her in his truck, roughly 930 it was a bit hot, she progressively started to feel more fatigue, malaise, more ill. She started to then developed lightheadedness, dizziness, as if the room was spinning around her, tinnitus, nausea, she describes her chest symptoms as chest palpitations, or or a feeling of uneasiness in her chest, she felt quite short of breath. She never passed out. So she decided to come to [facility] for further evaluation. Patient tells me that she did have a tick bite a few days ago, and she removed that tick. She had a history of Lyme disease roughly 3 years ago, for which she was treated. Denies smoking. No alcohol use. No drug use. No calf pain or calf swelling. But does report bilateral lower extremity swelling f for a few days after dropping her son off at college. The car drive was for 4 hours. They did take plenty of stops. She denies a cardiac history, does have an extensive family history of CAD. No history of strokes. Down in the emergency room, patient's heart rates were as low as the 40s, sinus bradycardia, EKG performed was poor quality study, no bundle branch block, QTc 460 ms prolonged, QRS 102 ms, IL interval 155 ms Review of Systems Const: Reports: body aches, fatigue, malaise and night sweats; Denies: fever(s) or chills Eyes: Denies: change in vision or blurry vision ENMT: Denies: hoarseness or nasal congestion Card: Reports: chest pain, palpitations, edema, lightheadedness, pre-syncope and orthopnea; Denies: irregular heart rhythm, syncope or dyspnea on exertion Resp: Reports: dyspnea; Denies: productive cough, non-productive cough, wheezing or chest congestion GI: Denies: abdominal pain, nausea, vomiting, hematemesis, diarrhea, constipation, hematochezia or melena : Denies: flank pain, dysuria or urinary frequency Musc: Denies: neck pain or back pain Skin/Breast: Denies: rash Neuro: Reports: dizziness and vertigo; Denies: headache(s) Psych: Denies: anxiety or depression Endo: Denies: polyuria or polydipsia Medications/Allergies Home Medications Medication Instructions Recorded Confirmed Last Taken Type diazepam 2 - 4 mg PO BID PRN 05/07/20 06/03/20 06/01/20 History estradiol 0.5 mg PO DAILY 05/07/20 06/03/20 06/03/20 History levothyroxine 125 mcg PO DAILY 05/07/20 06/03/20 06/03/20 History lisinopril-hydrochlorothiazide 1 tab PO DAILY 05/07/20 06/03/20 06/03/20 History trazodone 50 mg PO BEDTIME 05/07/20 06/03/20 06/02/20 History omeprazole 40 mg PO DAILY #30 cap 05/08/20 06/03/20 06/03/20 Rx Vitamin B-12 See Rx Instructions .ROUTE .COMPLEX 06/03/20 06/03/20 Unknown History Vitamin B-6 1 tab PO DAILY 06/03/20 06/03/20 Unknown History Vitamin D3 [place] See Rx Instructions .ROUTE .COMPLEX 06/03/20 06/03/20 Unknown History acetaminophen [Tylenol Extra 500 - 1,000 mg PO PRN 06/03/20 06/03/20 06/02/20 History Strength] Allergies Allergy/AdvReac Type Severity Reaction Status Date / Time meperidine [From Demerol] Allergy ADR-Halluci Verified 06/03/20 11:38 nating Sulfa (Sulfonamide Allergy Jody Verified 06/03/20 11:38 Antibiotics) Lip/Tongue/Throat PFSH Acute PFSH: Medical History (Updated 06/03/20 @ 14:22 by Crispin Rick MD) Atypical chest pain Borderline diabetes Fracture of lower extremity GERD (gastroesophageal reflux disease) Hiatal hernia Hypertension Hypothyroidism Migraine headache Rectal fistula Surgical History H/O hysterectomy with oophorectomy Hx laparoscopic cholecystectomy Family History Mother Cancer Multiple myeloma CAD (coronary artery disease) Father Cancer Prostate cancer, metastatic Social History Smoking and tobacco status: never smoked Alcohol intake: never Household members: spouse Vitals/I&O/Wt Last Vital Signs Temp 98.1 F 06/03/20 11:16 Pulse 68 06/03/20 14:05 Resp 18 06/03/20 14:05 BP 161/90 06/03/20 14:05 Pulse Ox 98 06/03/20 11:16 06/02/20 06/03/20 06/03/20 22:59 06:59 14:59 Intake Total 1000 / 1000 Balance 1000 / 1000 Weight last 48 hrs Weight 61.235 kg Physical Exam Const: COMMON NORMALS: no acute distress and patient oriented x3 GENERAL APPEARANCE: cooperative and comfortable HENMT: COMMON NORMALS: normocephalic HEAD & SCALP: normocephalic Eye: COMMON NORMALS: Equal, round and reactive pupils present and EOMs intact bilaterally GENERAL EYE: appearance normal, both eyes and all related structures PUPIL: Yes Equal, round and reactive pupils present Neck/C-Spine: COMMON NORMALS: full ROM, no lymphadenopathy, no JVD and Thyroid normal THYROID: Thyroid normal Lymph: LYMPHATIC: no lymphadenopathy noted Resp: COMMON NORMALS: normal respiratory effort, No retractions, No use of accessory muscles and clear to auscultation bilaterally AUSCULTATION: clear to auscultation bilaterally Cardio: COMMON NORMALS: no JVD, regular rate, regular rhythm, S1 normal heart sound present, S2 normal heart sound present, No gallops present (Cardio), No clicks present (Cardio) and No murmurs present (Cardio) RATE: regular rate RHYTHM: regular rhythm HEART SOUNDS: S1 normal heart sound present and S2 normal heart sound present GI: COMMON NORMALS: Normal to inspection, nondistended, normoactive bowel sounds present, Soft to palpation, non-tender and No hepatosplenomegaly present PALPATION: Yes Soft to palpation and Yes No hepatosplenomegaly present Extremity: COMMON NORMALS: normal to inspection, full ROM and no pedal edema Neuro: COMMON NORMALS: patient oriented x3, CN's II-XII intact bilaterally, moves all extremities and no focal motor deficits Psych: COMMON NORMALS: mental status grossly normal, Normal thought process present and cooperative THOUGHT PROCESS: Normal thought process present Data : 06/03/20 11:20 06/03/20 11:20 A&P Assessment and plan (1) Pre-syncope: -Holter monitor did show episodes of sinus bradycardia, heart rates in the low 50s -EKG during this hospitalization poor quality study, will repeat, sinus bradycardia heart rate in the 50s, IL interval 155 ms, QRS 102 ms, QTC 460 ms, no blocks, moderate ST depression -Echocardiogram on last admission shows EF of 65%, no regional wall motion abnormalities -Stress test on last admission showed myocardial perfusion showing patchy areas of persistent decreased tracer uptake in the apical and inferior lateral regions, no gross wall motion abnormalities -Head CT on last admission showed no acute abnormalities Plan: -Cardiology has been consulted, Dr. Raya to see, consideration for pacemaker placement Patient has a history of Lyme disease treated 3 years ago, had a tick bite 3 days ago, has symptoms of chronic Lyme, start Rocephin 2 g daily given pre-syncope and chest pain. -Lyme serologies ordered,TSH, ESR, CRP -Admit to cardiac stepdown unit, Holter monitoring -Atropine as needed -We will check carotid ultrasound, will consider MRI/MRA of brain to evaluate for possible posterior circulation stroke Status: Acute (2) Sinus bradycardia: Status: Acute (3) Hypothyroidism: Status: Acute Qualifiers: Hypothyroidism type: acquired Qualified Code(s): E03.9 - Hypothyroidism, unspecified (4) Fatigue: -Patient has a lot of symptoms of chronic Lyme disease, will order Lyme serologies Status: Acute (5) Tick bite: Status: Acute Additional A&P Information Full code, Lovenox DVT prophylaxis Attestations Medical Necessity Statement*: Patient guards hospitalization, outpatient observation, for presyncopal episode, sinus bradycardia Coding Level of Care Code Acute Tax Services Intern for Chg Fwd Diagnoses Pre-syncope R55 Sinus bradycardia R00.1 Hypothyroidism E03.9 Hypothyroidism type: acquired Fatigue R53.83 Tick bite W57.XXXA
[2020-06-03 14:38] LABS: SARS Covid-2 Antigen Negative (Negative)
--- NOTE | 2020-06-03 15:06 | USCV_ITS ---
Ceci Manning Age: 60 Gender: F : 1960 Exam Date: 06/03/2020 15:49 Ordering Phys: Crispin Rick MD Technologist: AARON ROB Exam Location: [facility] [place] Indication: SWELLING PROCEDURES: Venous duplex imaging was performed in bilateral lower extremities. The following venous structures were evaluated: common femoral vein, profunda vein, proximal portion of the greater saphenous vein, superficial femoral vein, and the popliteal vein. In addition, the posterior tibial and peroneal trunk were evaluated. Serial compression, augmentation maneuvers, and spectral Doppler flow evaluation were performed. FINDINGS: Normal 2-D Doppler and augmentation and compressibility throughout the lower extremity venous structures. Additional imaging through the proximal calf veins also reveals no thrombus. Limited evaluation of the greater saphenous vein is patent with no thrombus.. CONCLUSIONS No evidence of right lower extremity DVT. No evidence of left lower extremity DVT. Matt Eckert MD (Electronically Signed) Final Date: 03 June 2020 17:07 S
--- NOTE | 2020-06-03 15:06 | USCV_ITS ---
Ceci Manning Age: 60 Gender: F : 1960 Exam Date: 06/03/2020 15:27 Ordering Phys: Crispin Rick MD Technologist: AARON ROB Exam Location: [facility] [place] Indication: SYNCOPE Risk Factors: Previous Vascular Surgery: Right Brachial BP: / Left Brachial BP: / Right Left Velocity (cm/s) Spectral Plaque Velocity (cm/s) Spectral Plaque Syst/Diast Broadening Syst/Diast Broadening 105.80/22.10 Prox CCA 96.50 / 26.40 71.70/ 18.70 Mid CCA 67.50 / 23.90 57.50/ 20.20 Distal CCA 70.10 / 25.60 73.70/ 23.20 Prox ICA 106.80/ 33.30 97.90/ 31.10 Mid ICA 91.40 / 37.60 135.60/37.50 Distal ICA 75.70 / 22.30 88.60 ECA 106.00 1.37 ICA/CCA 1.35 Antegrade Vertebral Antegrade 77.20/ 27.60 cm/s 65.10/ 15.40 cm/s Bi Subclavian Tri 78.50 96.30 CONCLUSIONS Right ICA stenosis <50%. Left ICA stenosis <50%. Normal antegrade Doppler flow noted in the right vertebral artery. Normal antegrade Doppler flow noted in the left vertebral artery. Matt Eckert MD (Electronically Signed) Final Date: 03 June 2020 17:10 S
[2020-06-03 15:50] LABS: Procalcitonin 0.02 ng/mL (0-0.5); Thyroid Stimulating Hormone 0.88 uIU/mL (0.27-4.20)
[2020-06-03 15:54] LABS: Estmated Average Glucose 105; Hemoglobin A1C 5.3 % (4.0-6.0)
[2020-06-03 16:05] LABS: C Reactive Protein 3.8 mg/L (0.0-4.9)
--- NOTE | 2020-06-03 16:10 | ECG_ITS ---
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 Measurements Intervals [place] Rate: 48 P: 52 AL: 151 QRS: -16 QRSD: 92 T: 41 QT: 465 QTc: 417 Interpretive Statements SINUS BRADYCARDIA Compared to ECG 06/03/2020 13:44:58 ST (T wave) deviation no longer present Prolonged QT interval no longer present Electronically Signed On 06-04-2020 17:28:58 CDT by Can Wong M.D. [id number]
[2020-06-03 16:12] LABS: Erythrocyte Sedimentation Rate 19 mm/hr (0-15)
[2020-06-03] MEDS: enoxaparin 40 mg/0.4 mL Syringe SUBCUT (16:12)
[2020-06-03 16:49] LABS: Chol HDL Ratio 3.83 mg/dL (0.0-4.40); Cholesterol 199 mg/dL (0-200); HDL Cholesterol 52 mg/dL (60-100); LDL Cholesterol Calculated 128 mg/dL (50-129); LDL HDL Ratio 2.46 RATIO (0.00-3.22); Triglycerides 94 mg/dL (0-150)
--- NOTE | 2020-06-03 17:28 | ECG_ITS ---
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 Measurements Intervals [place] Rate: 52 P: 57 [place]: 151 QRS: -28 QRSD: 100 T: 31 QT: 461 QTc: 432 Interpretive Statements SINUS BRADYCARDIA SEPTAL MYOCARDIAL INFARCTION [40+ ms Q WAVE IN V1/V2], PROBABLY OLD Compared to ECG 06/03/2020 16:37:57 Myocardial infarct finding now present Electronically Signed On 06-04-2020 17:29:07 CDT by Can Wong M.D. [email or web address] [email or web address] baptist medical centerCaratLanevan [facility].[id number]
--- NOTE | 2020-06-03 17:41 | PC.NURSE ---
patient asking about cardiology at this time, Dr Rick notified for POC. Discussed with patient, Dr rick reports he is awaiting cardiology to call back.
--- NOTE | 2020-06-03 18:32 | PM.CONSULT ---
Providers/Reason For Consult Consulting Physican/Specialty*: TATIANA Raya MD/cardiology Reason for Consult*: Dizziness/near syncope/bradycardia Attending Physician: Crispin Rick MD Primary Care Provider: Acosta Wild DO History of Present Illness History of Present Illness Ceci Manning is a 60 year old female is admitted to the hospital through the emergency room, where she presented with complaints of dizziness/weakness/near syncopal episode. She was found to have heart rate in the upper 40s and low 50s in the emergency room. This patient was recently discharged the hospital when she was admitted with an episode of syncope. She was discharged home with an event monitor. Apparently the event monitor did not show any significant bradycardia or tachyarrhythmias to explain the syncopal episode. For the last 4 days or so, patient has been having feeling of weakness/nausea and some abdominal discomfort. This morning she was in a truck [place]. Her nausea, dizziness and abdominal discomfort started getting worse. She almost felt like going to pass out. But she never had any loss of consciousness. No seizure activities. She may have some chest tightness/heaviness. She also had tingling and numbness of her extremities. For these complaints, she was brought to the emergency room. Currently in the telemetry floor, she still has the feeling of weakness. She also has some tight feeling in the chest. No nausea vomiting. No shortness of breath. The EKG did not reveal any significant ischemic changes. No other arrhythmias are noted on the monitor. For the last 4 days or so, she has been having some tight feeling in the chest associated with a tightness and heaviness. She was getting extremely tired and weak after climbing the steps at home. The symptoms appear to be intermittent. She has no fever, chills or cough. She has a history of tick fever few years ago. She had a tick panel by her primary care provider few weeks ago. Patient has a strong family history for cardiac arrhythmia. Her mother and brother had atrial fibrillation. Mother had a permanent pacer implantation. 1 of her uncles also had a permanent pacer implantation. Review of Systems Narrative: CONSTITUTIONAL: No fever or chills. EYES: No blurring of vision or other visual disturbances lately. ENT: No hoarseness of voice, auditory disturbances or sore throat. CARDIOVASCULAR: As mentioned above. RESPIRATORY: No significant cough. GASTROINTESTINAL: Nausea, abdominal discomfort/cramping as mentioned above GENITOURINARY: No dysuria or hematuria. INTEGUMENTARY: No skin rashes or history of skin cancer. NEURO: Dizziness/near syncopal episodes as mentioned above PSYCHIATRIC: No history of psychosis or major depression. HEMATOLOGIC: No bleeding disorders or significant anemia. ENDOCRINE: No history of polyuria or polydipsia. MUSCULOSKELETAL: No recent joint pain or swelling. ALLERGY/IMMUNOLOGY: As mentioned above. Meds/Allergies Home Medications and Allergies Home Medications Medication Instructions Recorded Confirmed Last Taken Type diazepam 2 - 4 mg PO BID PRN 05/07/20 06/03/20 06/01/20 History estradiol 0.5 mg PO DAILY 05/07/20 06/03/20 06/03/20 History levothyroxine 125 mcg PO DAILY 05/07/20 06/03/20 06/03/20 History lisinopril-hydrochlorothiazide 1 tab PO DAILY 05/07/20 06/03/20 06/03/20 History trazodone 50 mg PO BEDTIME 05/07/20 06/03/20 06/02/20 History omeprazole 40 mg PO DAILY #30 cap 05/08/20 06/03/20 06/03/20 Rx Vitamin B-12 See Rx Instructions .ROUTE .COMPLEX 06/03/20 06/03/20 Unknown History Vitamin B-6 1 tab PO DAILY 06/03/20 06/03/20 Unknown History Vitamin D3 [facility] See Rx Instructions .ROUTE .COMPLEX 06/03/20 06/03/20 Unknown History acetaminophen [Tylenol Extra 500 - 1,000 mg PO PRN 06/03/20 06/03/20 06/02/20 History Strength] Allergies Allergy/AdvReac Type Severity Reaction Status Date / Time meperidine [From Demerol] Allergy ADR-Halluci Verified 06/03/20 11:38 nating Sulfa (Sulfonamide Allergy ALGY-Swell Verified 06/03/20 11:38 Antibiotics) Lip/Tongue/Throat Current Medications Current Medications Generic Name Dose Route Start Last Admin Trade Name Freq PRN Reason Stop Dose Admin Enoxaparin Sodium 40 mg 06/03/20 16:00 06/03/20 16:12 Lovenox SUBCUT 40 mg Q24H URBANO Administration PFSH Acute PFSH: Medical History Atypical chest pain Borderline diabetes Fracture of lower extremity GERD (gastroesophageal reflux disease) Hiatal hernia Hypertension Hypothyroidism Migraine headache Rectal fistula Surgical History H/O hysterectomy with oophorectomy Hx laparoscopic cholecystectomy Family History (Updated 06/03/20 @ 19:18 by Park Raya MD) Mother Cancer Multiple myeloma CAD (coronary artery disease) Atrial fibrillation Stroke Father Cancer Prostate cancer, metastatic CAD (coronary artery disease) Had myocardial infarction Brother CAD (coronary artery disease) Atrial fibrillation Social History Smoking and tobacco status: never smoked Alcohol intake: never Household members: spouse Vitals/I&O/Wt Last Vital Signs Temp 98.0 F 06/03/20 16:00 Pulse 50 L 06/03/20 16:00 Resp 18 06/03/20 16:00 BP 151/78 06/03/20 16:00 Pulse Ox 96 06/03/20 16:00 06/03/20 06/03/20 06/03/20 06:59 14:59 22:59 Intake Total 1000 / 1000 Balance 1000 / 1000 Weight last 48 hrs Weight 135 lb Physical Exam Narrative: EXAM NARRATIVE: GENERAL: The patient is alert and oriented times three. Not in any acute distress. HEENT: No significant pallor, icterus or lymphadenopathy. The pupils are reactant to light. Oral cavity: There are no mucous membrane lesions. Funduscopic examination: The disk margins appear to be sharp with no exudates or hemorrhages. NECK: Trachea appears to be central. No masses noted. No JVD or thyromegaly appreciated. No carotid bruit. RESPIRATORY: Chest is symmetrical. No intercostals muscle retraction or any accessory muscle activation. There is no chest wall tenderness. Breath sounds are heard bilaterally. No rales or rhonchi heard. No evidence of any consolidation. BREASTS: Deferred. HEART: The PMI is in the 5th left intercostals space just inside the midclavicular line. No palpable precordial events. S1 and S2 are normal. No S3 or S4 heard. No pericardial rub or any click heard. ABDOMEN: No vessel pulsations or distention. No tenderness. No organomegaly appreciated. No abdominal bruit. Bowel sounds are normally heard. : Deferred. RECTAL: Deferred. LYMPHATIC: No lymphadenopathy noted in the neck or groin. EXTREMITIES: No edema or cyanosis. No clubbing. The pulses are symmetrical bilaterally. The radial, femoral, dorsalis pedis and the posterior tibial pulses are palpated and found to be in good volume and amplitude. MUSCULOSKELETAL: Gait is normal. There is no joint deformity or swelling noted. No joint tenderness or any effusion. The shoulder and hip joints appear to have normal range of motion. SKIN: There are no significant scars or skin rash noted. NEUROPSYCHIATRIC: The patient is alert and oriented x3. Appears to be in a good mood. The higher functions are grossly within normal limits. No tremors or rigidity noted. Data Labs: Other Labs: Laboratory Last Values WBC 10.9 10^3/uL (4.0 -10.0) H 06/03/20 11:20 RBC 4.81 10^6/uL (4.1 -5.3) 06/03/20 11:20 Hgb 14.1 g/dL (11.5-1 5.3) 06/03/20 11:20 Hct 43.2 % (37.0-47.0 ) 06/03/20 11:20 MCV 89.8 fL (81-99) 06/03/20 11:20 MCH 29.3 pg (28.0-34. 0) 06/03/20 11:20 MCHC 32.6 g/dL (30.0-3 6.0) 06/03/20 11:20 RDW 12.5 % (12.1-15.1 ) 06/03/20 11:20 Plt Count 326 10^3/cmm (130 -400) 06/03/20 11:20 MPV 10.9 fL (7.4-10.4 ) H 06/03/20 11:20 Neut % (Auto) 62.3 % 06/03/20 11:20 Lymph % (Auto) 31.3 % 06/03/20 11:20 [place] % (Auto) 4.9 % 06/03/20 11:20 Eos % (Auto) 0.6 % 06/03/20 11:20 Baso % (Auto) 0.6 % 06/03/20 11:20 Neut # (Auto) 6.78 10^3/uL (1.8 -7.7) 06/03/20 11:20 Lymph # (Auto) 3.4 10^3/uL (0.8- 4.8) 06/03/20 11:20 [place] # (Auto) 0.5 10^3/uL (0.2- 0.9) 06/03/20 11:20 Eos # (Auto) 0.1 10^3/uL (0.0- 0.8) 06/03/20 11:20 Baso # (Auto) 0.1 10^3/uL (0.0- 0.1) 06/03/20 11:20 Nucleated RBC % (a uto) 0 % 06/03/20 11:20 Nucleated RBCs # 0.0 /100WBC 06/03/20 11:20 ESR 19 mm/hr (0-15) H 06/03/20 11:20 Sodium 134 mmol/L (136-1 45) L 06/03/20 11:20 Potassium 3.8 mmol/L (3.5-5 .1) 06/03/20 11:20 Chloride 98 mmol/L (98-107 ) 06/03/20 11:20 Carbon Dioxide 24 mmol/L (22-29) 06/03/20 11:20 Anion Gap 15.8 (5-19) 06/03/20 11:20 BUN 18 mg/dL (6-20) 06/03/20 11:20 Creatinine 0.7 mg/dL (0.5-0. 9) 06/03/20 11:20 GFR Calculation 85.9 mL/min (90-1 30) L 06/03/20 11:20 Glucose 118 mg/dL (65-115 ) H 06/03/20 11:20 Estimat Average Gl ucose 105 06/03/20 11:20 Hemoglobin A1c 5.3 % (4.0-6.0) 06/03/20 11:20 Calculated Osmolal ity 276 mOsm/kg (285- 295) L 06/03/20 11:20 Lactic Acid 1.4 mmol/L (0.5-2 .2) 06/03/20 11:20 Calcium 10.2 mg/dL (8.5-1 0.5) 06/03/20 11:20 Total Bilirubin 0.4 mg/dL (0.15-1 .2) 06/03/20 11:20 AST 19 U/L (0-32) 06/03/20 11:20 ALT 17 U/L (0-33) 06/03/20 11:20 Alkaline Phosphata se 69 IU/L (35-105) 06/03/20 11:20 Troponin T Baselin e 7 ng/L (0-10) 06/03/20 11:20 Troponin T 120 Min margaret 6.78 ng/L (0-10) 06/03/20 13:17 Delta Troponin T -0.22 ABS# (0-10) L 06/03/20 13:17 C-Reactive Protein 3.8 mg/L (0.0-4.9 ) 06/03/20 11:20 NT-Pro-B Natriuret Pep 237 pg/mL (0-125) H 06/03/20 11:20 Total Protein 7.3 g/dL (6.6-8.7 ) 06/03/20 11:20 Albumin 4.2 g/dL (3.5-5.2 ) 06/03/20 11:20 Globulin 3.1 g/dL (1.3-4.6 ) 06/03/20 11:20 Triglycerides 94 mg/dL (0-150) 06/03/20 11:20 Cholesterol 199 mg/dL (0-200) 06/03/20 11:20 LDL Cholesterol, C alc 128 mg/dL (50-129 ) 06/03/20 11:20 HDL Cholesterol 52 mg/dL (60-100) L 06/03/20 11:20 LDL/HDL Ratio 2.46 RATIO (0.00- 3.22) 06/03/20 11:20 Cholesterol/HDL Ra charisse 3.83 mg/dL (0.0-4 .40) 06/03/20 11:20 Procalcitonin 0.02 ng/mL (0-0.5 ) 06/03/20 11:20 TSH 0.88 uIU/mL (0.27 -4.20) 06/03/20 11:20 Urine Color Yellow (Yellow) 06/03/20 11:51 Urine Appearance Clear (CLEAR) 06/03/20 11:51 Urine pH 8 (5-7) H 06/03/20 11:51 Ur Specific Gravit y 1.020 (1.005-1.0 30) 06/03/20 11:51 Urine Protein Neg (Negative) 06/03/20 11:51 Urine Glucose (UA) Norm (Normal) 06/03/20 11:51 Urine Ketones Negative (Negati ve) 06/03/20 11:51 Urine Blood Neg (Negative) 06/03/20 11:51 Urine Nitrate Negative (Negati ve) 06/03/20 11:51 Urine Bilirubin Neg (NEGATIVE) 06/03/20 11:51 Prot Sulfosalicyli c Acd Negative (Negati ve) 06/03/20 11:51 Urine Urobilinogen Norm mg/dL (Negat erin) 06/03/20 11:51 Ur Leukocyte Dorys ase Negative (Negati ve) 06/03/20 11:51 SARS-CoV-2 Ag (Rap id) Negative (Negati ve) 06/03/20 13:45 Imaging^: Other Imaging: I personally reviewed and interpreted this imaging study as follows: My impression: Myocardial perfusion imaging on 05/08/2020 revealed 1. Myocardial perfusion may revealing patchy areas of persistent decreased tracer uptake in the apical and inferolateral regions, suggestive of myocardial scarring versus attenuation artifacts. 2. Normal LV ejection fraction of 74%. 3. LV wall motion analysis revealing no gross wall motion normalities. 4. Normal LV volume. Echo: My impression: Echocardiogram on 05/08/2020 revealed Normal left ventricular size and systolic function, EF 65 %. No regional wall motion abnormalities. Trace to mild tricuspid valve regurgitation. No significant stenotic lesions. Normal chamber sizes. Thickened interatrial septum, suggestive of lipomatous dystrophy There is no pericardial effusion. There are no intracardiac masses. There are no prior echocardiogram studies to compare. CXR: My impression: Chest x-ray revealed normal cardiac silhouette with no lung infiltrate. No acute pathology noted. EKG^: EKG 1: My Interpretation: Sinus bradycardia with a rate of 52 bpm. Left axis deviation. Nonspecific T wave changes. A&P Assessment and plan (1) Pre-syncope: The etiology of the presyncope is not clear. Patient has some chest tightness, shortness of breath, extreme fatigue. Possibility of underlying coronary ischemia causing this is a consideration. Apparently she had a stress test during the last hospital admission which was unremarkable. She may require a cardiac arrest during, to further evaluate her coronary status and decide on further management. Status: Acute (2) Sinus bradycardia: The etiology of the sinus bradycardia is not clear. This could be physiological. Sinus mat dysfunction also is a possibility. A vasovagal reaction also could be a contributing factor. Apparently even during the last hospital admission, patient had stomach discomfort causing the passing out. Status: Acute (3) Hypertension: Currently she is of stage II hypertension. We will optimize the antihypertensive medications. Status: Acute Qualifiers: Hypertension type: essential hypertension Qualified Code(s): I10 - Essential (primary) hypertension (4) GERD (gastroesophageal reflux disease): Patient has stomach cramps or discomfort. May need to optimize the treatment for this. Status: Acute Qualifiers: Esophagitis presence: without esophagitis Qualified Code(s): K21.9 - Gastro-esophageal reflux disease without esophagitis (5) Hypothyroidism: Clinically appears euthyroid. May continue other medications. Status: Acute Qualifiers: Hypothyroidism type: acquired Qualified Code(s): E03.9 - Hypothyroidism, unspecified Additional A&P Information I will be coordinating the event monitoring company and we will try to get the recordings. Patient had a carotid duplex & venous Doppler examination today. After reviewing the above test results and also based on the patient's clinical progress, further recommendations will be made. Consult Attestations Medical Necessity Statement: Patient requires close monitoring for further evaluation and management Coding Level of Care Code Acute Travel Service Consultant for Chg Fwd Diagnoses Pre-syncope R55 Sinus bradycardia R00.1 Hypertension I10 Hypertension type: essential hypertension GERD (gastroesophageal reflux disease) K21.9 Esophagitis presence: without esophagitis Hypothyroidism E03.9 Hypothyroidism type: acquired
[2020-06-03 19:39] LABS: Troponin 5 6HR 7.77 ng/L (0-10); Troponin 5 6HR Delta 0.77 ng/L (0-12)
[2020-06-03] MEDS: trazodone 50 mg Tablet PO (20:34)
[2020-06-04] VITALS (13 sets, daily range): BP systolic 88–118; BP diastolic 52–76; PULSE 45–73; RESP 10–25; TEMP 36.5–36.8; O2SAT 80–100
[2020-06-04 05:23] LABS: Basophils # 0.1 10^3/uL (0.0-0.1); Basophils % 0.7 %; Eosinophils # 0.1 10^3/uL (0.0-0.8); Eosinophils % 1.5 %; Hematocrit 41.1 % (37.0-47.0); Hemoglobin 13.1 g/dL (11.5-15.3); Lymphocytes # 2.3 10^3/uL (0.8-4.8); Lymphocytes % 33.8 %; Mean Corpuscular HGB Conc 31.9 g/dL (30.0-36.0); Mean Corpuscular Hemoglobin 29.9 pg (28.0-34.0); Mean Corpuscular Volume 93.8 fL (81-99); Monocytes # 0.5 10^3/uL (0.2-0.9); Monocytes % 7.3 %; Neutrophils # 3.87 10^3/uL (1.8-7.7); Neutrophils % 56.4 %; Nucleated Red Blood Cells % 0 %; Platelet Count 264 10^3/cmm (130-400); Red Blood Count 4.38 10^6/uL (4.1-5.3); Red Cell Distribution Width 12.5 % (12.1-15.1); White Blood Count 6.9 10^3/uL (4.0-10.0)
[2020-06-04 05:56] LABS: Alanine Aminotransferase 13 U/L (0-33); Albumin Level 3.4 g/dL (3.5-5.2); Alkaline Phosphatase 54 IU/L (35-105); Aspartate Amino Transferase 14 U/L (0-32); Blood Urea Nitrogen 18 mg/dL (6-20); Calcium 8.9 mg/dL (8.5-10.5); Carbon Dioxide 25 mmol/L (22-29); Chloride 104 mmol/L (98-107); Globulin 2.8 g/dL (1.3-4.6); Glomerular Filtration Rate 126.7 mL/min (90-130); Glucose 108 mg/dL (65-115); Osmolality Calculated 281 mOsm/kg (285-295); Phosphorus 3.4 mg/dL (2.5-4.5); Sodium 137 mmol/L (136-145); Total Bilirubin 0.3 mg/dL (0.15-1.2); Total Protein 6.2 g/dL (6.6-8.7)
[2020-06-04] MEDS: cefTRIAXone 2,000 MG in sodium chloride 0.9% (plus) 50 ML 100 MG IV (08:17)
[2020-06-04] MEDS: pantoprazole DR 40 mg Tablet PO (08:24)
[2020-06-04] MEDS: levothyroxine 125 mcg Tablet PO (08:24)
[2020-06-04] MEDS: lisinopril 10 mg Tablet PO (08:25)
[2020-06-04] MEDS: hydroCHLOROthiazide 25 mg Tablet 12.5 MG PO (08:25)
--- NOTE | 2020-06-04 09:21 | P.PN_ITS ---
Subjective Subjective: Interval history: Patient continues to have some tight feeling in the chest and some shortness of breath with activities. No significant arrhythmias on the monitor. No symptomatic bradycardia were noted. She still may have a heart rate in the upper 40s and low 50s intermittently. No fever or chills. No other specific complaints. Medications: Reviewed: Yes Medication Review Details: Current Medications Atropine Sulfate (Atropine Syr) 0.5 mg IVP Q5MIN PRN PRN Reason: HR<40, and symptoms of lighthe Diazepam (Valium) 2 - 4 mg PO BID PRN PRN Reason: Anxiety Enoxaparin Sodium (Lovenox) 40 mg SUBCUT Q24H [facility] Last Admin: 06/03/20 16:12 Dose: 40 mg Documented by: Hydrochlorothiazide (Hctz) 12.5 mg PO DAILY [facility] Last Admin: 06/04/20 08:25 Dose: 12.5 mg Documented by: Ceftriaxone Sodium 2,000 mg/ (Sodium Chloride) 50 mls @ 100 mls/hr IV DAILY [facility]; Protocol Last Admin: 06/04/20 08:17 Dose: 100 mls/hr Documented by: Levothyroxine Sodium (Synthroid) 125 mcg PO DAILY [facility] Last Admin: 06/04/20 08:24 Dose: 125 mcg Documented by: Lisinopril (Prinivil) 10 mg PO DAILY [facility] Last Admin: 06/04/20 08:25 Dose: 10 mg Documented by: Ondansetron HCl (Zofran) 4 mg IVP Q8H PRN PRN Reason: vomiting, or N/V if npo Pantoprazole Sodium (Protonix) 40 mg PO DAILY [facility] Last Admin: 06/04/20 08:24 Dose: 40 mg Documented by: Trazodone HCl (Desyrel) 50 mg PO BEDTIME [facility] Last Admin: 06/03/20 20:34 Dose: 50 mg Documented by: Vitals/I&O/Wt Last Vital Signs Temp 97.7 F 06/04/20 07:25 Pulse 49 L 06/04/20 08:18 Resp 18 06/04/20 07:25 BP 112/59 06/04/20 08:18 Pulse Ox 97 06/04/20 07:25 06/03/20 06/04/20 06/04/20 22:59 06:59 14:59 Intake Total 120 / 1120 Balance 120 / 1120 Weight last 48 hrs Weight 135 lb Physical Exam Narrative: EXAM NARRATIVE: GENERAL: The patient is alert and oriented times three. Not in any acute distress. HEENT: No significant pallor, icterus or lymphadenopathy. NECK: Trachea appears to be central. No masses noted. No JVD or thyromegaly appreciated. No carotid bruit. RESPIRATORY: Chest is symmetrical. No intercostals muscle retraction or any accessory muscle activation. There is no chest wall tenderness. Breath sounds are heard bilaterally. No rales or rhonchi heard. No evidence of any consolidation. BREASTS: Deferred. HEART: Heart sounds are normal no S3 or S4. No significant murmurs. ABDOMEN: No vessel pulsations or distention. No tenderness. No organomegaly appreciated. No abdominal bruit. Bowel sounds are normally heard. : Deferred. RECTAL: Deferred. LYMPHATIC: No lymphadenopathy noted in the neck or groin. EXTREMITIES: No edema or cyanosis. No clubbing. The pulses are symmetrical bilaterally. The radial, femoral, dorsalis pedis and the posterior tibial pulses are palpated and found to be in good volume and amplitude. MUSCULOSKELETAL: No acute joint deformities or swelling SKIN: There are no significant scars or skin rash noted. NEUROPSYCHIATRIC: The patient is alert and oriented x3. Appears to be in a good mood. The higher functions are grossly within normal limits. No tremors or rigi dity noted. Data : 06/04/20 05:03 06/04/20 05:03 A&P Assessment and plan (1) Pre-syncope: In view of the patient's recurrent episodes of syncope/near syncope and chest discomfort, in order to further evaluate her coronary status, a cardiac catheterization would be appropriate. The risk of bleeding, hematoma, vascular injury, myocardial infarction, CVA, renal failure and other concomitant complications were explained in detail. Patient understood this well and consented to proceed. We will go ahead and schedule for the cardiac catheterization today. Status: Acute (2) Sinus bradycardia: I reviewed the event monitor recordings after the of this month. Patient apparently did not have any significant bradyarrhythmias to explain the symptoms. Status: Acute (3) Hypertension: Currently the blood pressure is within normal limits. May continue on the current medications. Status: Acute Qualifiers: Hypertension type: essential hypertension Qualified Code(s): I10 - Essential (primary) hypertension (4) GERD (gastroesophageal reflux disease): May continue on the current medications. Status: Acute Qualifiers: Esophagitis presence: without esophagitis Qualified Code(s): K21.9 - Gastro-esophageal reflux disease without esophagitis (5) Hypothyroidism: Clinically appears euthyroid. May continue other medications. Status: Acute Qualifiers: Hypothyroidism type: acquired Qualified Code(s): E03.9 - Hypothyroidism, unspecified Additional A&P Information After reviewing the above test results and also based on the patient clinical progress, further management decisions will be made. Attestations Medical Necessity Statement*: Patient requires continued hospital stay for close monitoring and further management Coding Level of Care Code Acute Hydraulic Spinner for Chg Fwd Diagnoses Pre-syncope R55 Sinus bradycardia R00.1 Hypertension I10 Hypertension type: essential hypertension GERD (gastroesophageal reflux disease) K21.9 Esophagitis presence: without esophagitis Hypothyroidism E03.9 Hypothyroidism type: acquired
--- NOTE | 2020-06-04 10:21 | PC.OT ---
OT note: Pt was independent with physical therapy ambulating in hallway, no device needed. From discussion with PT patient does not need assist with self-cares. No OT indicated at this time.
--- NOTE | 2020-06-04 11:36 | PM.PN ---
Subjective Subjective: Interval history: This morning patient was examined, she is laying in bed, denies any lightheadedness, any dizziness, she gets up and ambulates on her own, she worked with physical therapy, physical therapy felt that there was no significant imbalance, her orthostats were within normal limits, she denies any lightheadedness or dizziness when changing positions, no vasovagal symptoms with bearing down, no tinnitus symptoms, no nausea, no vomiting Vitals/I&O/Wt Last Vital Signs Temp 98.0 F 06/04/20 11:01 Pulse 68 06/04/20 11:01 Resp 18 06/04/20 11:01 BP 110/70 06/04/20 11:01 Pulse Ox 100 06/04/20 11:01 06/03/20 06/04/20 06/04/20 22:59 06:59 14:59 Intake Total 120 / 1120 Balance 120 / 1120 Weight last 48 hrs Weight 61.235 kg Physical Exam Const: COMMON NORMALS: no acute distress and patient oriented x3 HENMT: COMMON NORMALS: normocephalic HEAD & SCALP: normocephalic Neck/C-Spine: COMMON NORMALS: no JVD Resp: COMMON NORMALS: normal respiratory effort, No retractions, No use of accessory muscles and clear to auscultation bilaterally AUSCULTATION: clear to auscultation bilaterally Cardio: COMMON NORMALS: no JVD, regular rate, regular rhythm, S1 normal heart sound present and S2 normal heart sound present RATE: regular rate RHYTHM: regular rhythm HEART SOUNDS: S1 normal heart sound present and S2 normal heart sound present GI: COMMON NORMALS: Normal to inspection, nondistended, normoactive bowel sounds present, Soft to palpation, non-tender, No hepatosplenomegaly present, no masses and no bruits PALPATION: Yes Soft to palpation and Yes No hepatosplenomegaly present Extremity: COMMON NORMALS: capillary refill normal, no clubbing, cyanosis or edema, no calf tenderness and no pedal edema Neuro: COMMON NORMALS: patient oriented x3 Psych: COMMON NORMALS: mental status grossly normal Data : 06/04/20 05:03 06/04/20 05:03 A&P Assessment and plan (1) Pre-syncope: -Holter monitor did show episodes of sinus bradycardia, heart rates in the low 50s -EKG during this hospitalization poor quality study, will repeat, sinus bradycardia heart rate in the 50s, OR interval 155 ms, QRS 102 ms, QTC 460 ms, no blocks, moderate ST depression -Echocardiogram on last admission shows EF of 65%, no regional wall motion abnormalities -Stress test on last admission showed myocardial perfusion showing patchy areas of persistent decreased tracer uptake in the apical and inferior lateral regions, no gross wall motion abnormalities -Head CT on last admission showed no acute abnormalities -TSH, ESR, CRP within normal limits -Carotid ultrasound no significant carotid artery stenosis, bilateral lower extremity ultrasounds negative for DVT Plan: -Cardiology has been consulted, Dr. Raya to see, consideration for pacemaker placement Patient has a history of Lyme disease treated 3 years ago, had a tick bite 3 days ago, has symptoms of chronic Lyme, start Rocephin 2 g daily given pre-syncope and chest pain. -Lyme serologies ordered -Admit to cardiac stepdown unit, Holter monitoring -Atropine as needed Status: Acute (2) Sinus bradycardia: Status: Acute (3) Hypothyroidism: Status: Acute Qualifiers: Hypothyroidism type: acquired Qualified Code(s): E03.9 - Hypothyroidism, unspecified (4) Fatigue: -Patient has a lot of symptoms of chronic Lyme disease, will order Lyme serologies Status: Acute (5) Tick bite: Status: Acute Additional A&P Information Full code, Lovenox DVT prophylaxis Attestations Medical Necessity Statement*: She requires continued hospitalization, for sinus bradycardia, possibly undergoing cardiac catheterization Coding Level of Care Code Acute Account Manager [employer] for Chg Fwd Diagnoses Pre-syncope R55 Sinus bradycardia R00.1 Hypothyroidism E03.9 Hypothyroidism type: acquired Fatigue R53.83 Tick bite [id number]
[2020-06-04 12:27] LABS: Lymes IGG WB <0.90 index
--- NOTE | 2020-06-04 13:32 | PC.NURSE ---
Confirmed scheduled Lovenox with Dr. Raya instructions to hold dose prior to procedure
[2020-06-04] MEDS: sodium chloride 0.9% 1,000 ML 50 ML IV (15:31)
[2020-06-04] MEDS: diphenhydrAMINE 50 mg Capsule PO (15:32)
--- NOTE | 2020-06-04 16:14 | XACV_ITS ---
Exam Room: [facility] Ht: 160 cm Wt: 61 kg BSA: 1.66 m2 Gender: Female : 1960 Any Known Allergies: Sulfa Exam Priority: Routine Procedure(s): Procedure Description: Diagnostic procedure Procedure Description: Left Heart Catheterization Procedure Description: Left ventriculography Procedure Description: Coronary Angiography Diagnostic Cath Status: Urgent Diagnostic Findings The left main is a medium caliber vessel with no significant stenotic lesions. The left-sided descending artery is a medium caliber vessel which appears to wrap around the LV apex minimally. Right after the first diagonal branch, there was a 40 to 50% segmental lesion in the LAD. No other significant stenotic lesions were noted. The left circumflex artery is small to medium caliber nondominant vessel with no significant stenotic lesions. The right coronary artery is a medium to large caliber dominant vessel with no significant stenotic lesions. Conclusions This is a 60-year-old white female with history of hypertension, bradycardia, presented with recurrent episodes of syncope/near syncope associated with chest tightness, shortness of breath and fatigue. She had a myocardial perfusion imaging which was unremarkable. However in view of the ongoing symptoms, requiring repeated hospital admissions, for further evaluation of her coronary status, a cardiac catheterization was recommended. Patient underwent left heart catheterization with left and right coronary angiogram and LV angiogram today. The findings are as follows. Single-vessel coronary artery disease -40 to 50% mid LAD lesion. No other significant coronary lesions. LV ejection fraction of 55%. LVEDP of 10 mm of mercury. Recommendations Continue current medical management and risk factor modification. Diagnostic RX Recommendation: medical therapy and/or counseling LV EDP: 10 mmHg Ejection Fraction: 55.0 % Left Ventriculography Findings: The LV gram was performed in the JOHNSON view. The LV cavity appears to be normal size. There was no filling defects. No significant mitral valve prolapse or mitral regurgitation. Overall LV ejection fraction was around 55%. Pressures Phase:Rest AO : 103 mmHg / 58 mmHg ( 77 mmHg ) @ 12:13:00 PM 92 mmHg / 53 mmHg ( 70 mmHg ) @ 12:20:00 PM 104 mmHg / 49 mmHg ( 73 mmHg ) @ 12:24:00 PM 105 mmHg / 50 mmHg ( 73 mmHg ) @ 12:24:00 PM LV : 113 mmHg / -7 mmHg / @ 12:23:00 PM 113 mmHg / -7 mmHg / @ 12:24:00 PM 112 mmHg / -7 mmHg / @ 12:24:00 PM Valves Phase:DefaultPhase AV : 8.0 mmHg @ 5:33:59 PM AV Mean Gradient: 8.0 mmHg @ 5:33:59 PM Clinical Evaluation EBL: 5mL-10mL Procedural Details Procedure Consent Obtained. Pre-Procedure Time Out. Identified patient by full name and date of as verbalized by the patient/guarantor. Does the consent match the physician's order: Yes. Accurate & Complete Informed Consent: Yes. Inpatient/Outpatient History & Physical on Chart: Yes. If H&P is completed, is and addenduem needed: No; If yes, is the addendum complete: N/A. Visualize and Verify Site with Patient/Guarantor: N/A. Relevant Radiology Images available: N/A. Pre-op teaching completed and patient verbalized understanding. The risks, benefits, and alternatives of sedation and/or procedure were discussed by physician. The patient agrees to continue. Procedure started. [facility] Clinical Fraility Score: 4: Vulnerable. Software Designer Indications: Suspected CAD. Chest Pain Symptom Assessment: Atypical Angina. Cardiovascular Instability: No. Correct patient, site and procedure confirmed by cath team. PERRLA. Strong, equal hand internet researcher bilaterally. Lungs clear x 5 lobes. IV Site on Arrival: 20 gauge in the right forearm. IV Fluids: 0.9% NaCl at KVO. 0 mL infused prior to offset label rewinder. Oxygen started at 2liters/min via nasal canula. bilateral groins was prepped with chloroprep then draped in the usual sterile fashion. right radial was prepped with chloroprep then draped in the usual sterile fashion. Pre Procedural Pulses: bilateral radial was 2+. Physician arrived. Equipment: 6F - Radial. Cardiac Cath Pack. ACIST Manifold Kit Model BT 2000. Heparinized Saline (2 units/mL), 1000 mL bag. Baseline sample Acquired. HR: 49 BPM. Physician scrubbed in. Immediate Pre-Procedure Time Out. Correct Patient: Yes; Correct Procedure: Yes; Correct Site: Yes; Correct Patient Position: Yes; Correct Supplies: Yes; Dried Flammable Prep: Yes; Blood Products Available: N/A;. Lidocaine 1% infiltrated to the right radial. Arterial access obtained. A 5 andorran Prasanna catheter in over wire. Multiple views taken of left coronary artery. Catheter redirected to the RCA. Catheter removed over the exchange wire. Multiple views taken of right coronary artery. Catheter removed over the exchange wire. A 5 andorran Angled Pig catheter in over wire. A 5 andorran JR4 catheter in over wire. EDP Sample taken: LV 113/-8,10; HR: 54 BPM; SpO2: 100%. LV gram performed in JOHNSON @ 10 mL/second for a total of 30 mL. EDP Sample taken: LV 113/-8,11; HR: 57 BPM; SpO2: 100%. Pullback taken: LV 112/-8,11; AO 104/49(73); Mean: 8mmHg, Peak to Peak: 8mmHg, SEP: 20sec/min; HR: 57 BPM; SpO2: 100%. Catheter removed over the exchange wire. Physician scrubbed out. A TR Band was successful obtaining hemostatsis at the Right Radial artery insertion site. TR band placed. Hemostasis obtained. Post Procedure: Pulses reassessed and unchanged. PERRLA. Strong, equal hand internet researcher bilaterally. No VTE prophylaxis required. Medication's Wasted: Lidocaine 1% = 18 mL. Medication's Wasted: Verapamil = 5 mg. Medication's Wasted: Nitro = 49.8 mg. Medication's Wasted: Heparin = 1000 units. Total IV fluids: 268 mL. Medication's Wasted: Other = versed 1 mg. Post-op diagnosis: mild to moderate CAD. Complications: none. Estimated blood loss: 5mL-10mL. Procedure completed. Patient transferred by wheelchair to 1st floor. Vital chart was stopped. Site: Right Radial artery Sheath Size: 6 Fr Hemostasis Method: TR Band Hemostasis Success: Successful Procedure Medications Start: 4:57 PM Stop: 4:57 PM Medication: Versed Amount: 1 mg Route: I.V. Start: 4:57 PM Stop: 4:57 PM Medication: Fentanyl Amount: 50 mcg Route: I.V. Start: 5:00 PM Stop: 5:00 PM Medication: Versed Amount: 1 mg Route: I.V. Start: 5:00 PM Stop: 5:00 PM Medication: Fentanyl Amount: 50 mcg Route: I.V. Start: 5:05 PM Stop: 5:05 PM Medication: 0.9% Saline Amount: 250 ml Route: I.V. bolus Start: 5:09 PM Stop: 5:09 PM Medication: Nitrogylcerin Amount: 200 mcg Route: I.A. Start: 5:11 PM Stop: 5:11 PM Medication: Versed Amount: 1 mg Route: I.V. Start: 5:10 PM Stop: 5:10 PM Medication: Heparin Amount: 5000 units Route: I.V. I, the attending physician, have reviewed and verified all procedure medications. Yes, all medications given per verbal order History/Risk Factors Hypertension: Yes Dyslipidemia: No Peripheral Arterial Disease (PAD): No Myocardial Infarction (IL): No Obesity: No Renal Disease: No Tobacco Use: Never Prior Interventions PCI: No CABG: No Valve Surgery: No Report Signatures Finalized by:Dr Park Raya MD [facility] on 06/04/2020 6:05:30 PM
--- NOTE | 2020-06-04 16:54 | W.PM.OPSUD ---
Surgery/Procedure H&P Update DATE OF PROCEDURE: June 04, 2020 DATE H&P PERFORMED: 06/03/20 H&P UPDATE INFORMATION: I have reviewed H&P completed within last 30 days and I have examined patient prior to procedure PREOP DIAGNOSIS: Atypical chest pain/recurrent episodes of syncope/near syncope PRIMARY INDICATION FOR PROCEDURE: Suspected CAD PLANNED PROCEDURE: Operation Date: 06/04/20 16:30 Proposed Procedures p Cardiac Catheterization(Left) - Park Raya MD Operation Date: 06/18/20 16:30 Proposed Procedures p Cardiac Catheterization(Not Applicable) - Park Raya MD PATIENT REASSESSED PRIOR TO SEDATION, WITH NO CHANGE NOTED: Yes PHYSICAL EXAM: alert, oriented x 3, clear to auscultation bilaterally and regular rate & rhythm AIRWAY EVAL/ANESTHESIA PLAN: normal airway, see other exam findings, ASA II, Risks, benefits & alternatives of sedation and/or procedure discussed and Patient agrees to continue as planned
--- NOTE | 2020-06-04 17:52 | PC.NURSE ---
Patient returned from cathlab and arrived to CSU at 1745. TR band in place on right wrist with 15 mL's of air in place. No bleeding, no hematoma, pulses palpated and present.
--- NOTE | 2020-06-04 18:05 | P.DS_ITS ---
Discharge Providers Date of Admission: 06/03/20 14:31 Date of Discharge: June 04, 2020 Attending Provider at Admission: Crispin Rick MD Attending Provider at Discharge: Crispin Rick MD Primary Care Provider: Acosta Wild DO Diagnoses at Discharge Discharge Diagnosis (1) Pre-syncope: Status: Acute (2) Sinus bradycardia: Status: Acute (3) Hypertension: Status: Acute Qualifiers: Hypertension type: essential hypertension Qualified Code(s): I10 - Essential (primary) hypertension (4) GERD (gastroesophageal reflux disease): Status: Acute Qualifiers: Esophagitis presence: without esophagitis Qualified Code(s): K21.9 - Gastro-esophageal reflux disease without esophagitis (5) Hypothyroidism: Status: Acute Qualifiers: Hypothyroidism type: acquired Qualified Code(s): E03.9 - Hypothyroidism, unspecified Reason for Visit Reason for Visit: SOB Hospital Course Discharge Summary: This is a 52-year-old female with past medical history of Lyme disease, GERD, hypertension, hypothyroidism, migraines, who presents to [facility] due to fatigue, malaise, lightheadedness, palpitations, shortness of breath Of note patient was recently discharged from [facility] on May 08, 2020 for syncopal episode had a extensive cardiac evaluation, with a cardiac stress testing which was within normal limits, discharged on a Holter monitor which had no significant cardiac events except sinus bradycardia patient was admitted to [facility] due to concerns for sinus bradycardia, chest palpitations, lightheadedness, fatigue, malaise, multiple joint pains. For her sinus bradycardia, chest palpitations, she underwent cardiac catheterization by Dr. Raya, with no significant obstructive CAD found. She had inpatient telemetry monitoring, which showed episodes of sinus bradycardia, heart rates into the low 40s, no evidence of AV blocks, or arrhythmias. There was no need for pacemaker placement, as patient remained asymptomatic. After discussion with Dr. Raya, patient will be seen by Dr. Raya as outpatient, for consideration of loop recorder placement. Patient is to follow with Dr. Raya in 2 weeks. Patient was advised if she were to have chest palpitations or episodes of lightheadedness, dizziness come back to the emergency room. Patient had complaints of lightheadedness, dizziness, orthostats within normal limits, no significant vasovagal symptoms or episodes, carotid ultrasounds with no hemodynamically significant carotid artery stenosis, no strokelike symptoms, no posterior circulation strokelike symptoms, no imbalance issues, worked with physical therapy, no issues with balance or coordination detected. Patient also had complaints of a tick bite 3 weeks ago, has a history of Lyme disease in the past, was started on Rocephin for possible cardiac [place], no arrhythmias on telemetry, no AV blocks, she was discharged on 2 remaining weeks of amoxicillin. Patient had complaints of fatigue, malaise, multiple joint pains, muscle aches. Etiology is unclear at this time, possibilities include Lyme arthritis, or a rheumatologic disorder. I have ordered Lyme Western blot, tick panel, JOLANTA, sed rate, rheumatoid factor which should be followed up by outpatient physician. In addition I have discharged her on 2 weeks of amoxicillin for Lyme arthritis. Patient was advised that if her symptoms persist, she should consider referral to rheumatology for further evaluation and work-up. Physical Exam Const: COMMON NORMALS: no acute distress and patient oriented x3 HENMT: COMMON NORMALS: normocephalic HEAD & SCALP: normocephalic Neck/C-Spine: COMMON NORMALS: no JVD Resp: COMMON NORMALS: normal respiratory effort, No retractions, No use of accessory muscles and clear to auscultation bilaterally AUSCULTATION: clear to auscultation bilaterally Cardio: COMMON NORMALS: no JVD, regular rate, regular rhythm, S1 normal heart sound present and S2 normal heart sound present RATE: regular rate RHYTHM: regular rhythm HEART SOUNDS: S1 normal heart sound present and S2 normal heart sound present GI: COMMON NORMALS: Normal to inspection, nondistended, normoactive bowel sounds present, Soft to palpation, non-tender, No hepatosplenomegaly present, no masses and no bruits PALPATION: Yes Soft to palpation and Yes No hepatosplenomegaly present Extremity: COMMON NORMALS: capillary refill normal, no clubbing, cyanosis or edema, no calf tenderness and no pedal edema Neuro: COMMON NORMALS: patient oriented x3 Psych: COMMON NORMALS: mental status grossly normal Discharge Data Data Completed and Pending: Completed Studies During Hospitalization Category Date Time Status XR chest 1V alexis ble [id number] Stat Exams 06/03/20 11:28 Completed CV carotid duplex BI* [id number] Urgent Ultrasound 06/03/20 15:06 [place] [id number] Urgent Ultrasound 06/03/20 15:06 Completed Pending at discharge Category Date Time Status ENGRAVER LETTERING request for service Routin e Exams 06/04/20 16:14 Ordered JOLANTA Profile Rheum atology Stat Lab 06/04/20 18:04 Ordered Complete Blood Co unt w/Auto AM LABS Lab 06/05/20 04:00 Ordered Complete Blood Co unt w/Auto AM LABS Lab 06/06/20 04:00 Ordered Comprehensive Met abolic Panel AM LA BS Lab 06/05/20 04:00 Ordered Comprehensive Met abolic Panel AM LA BS Lab 06/06/20 04:00 Ordered Erythrocyte Sedim entation Rate Stat Lab 06/04/20 18:04 Ordered Magnesium AM LABS Lab 06/05/20 04:00 Ordered Magnesium AM LABS Lab 06/06/20 04:00 Ordered Phosphorus AM LAB S Lab 06/05/20 04:00 Ordered Phosphorus AM LAB S Lab 06/06/20 04:00 Ordered Rheumatoid Factor Routine Lab 06/04/20 18:04 Ordered Tick Panel Stat Lab 06/04/20 18:04 Ordered Labs from last 24 hours 06/04/20 06/04/20 06/03/20 05:03 05:03 18:30 WBC 6.9 RBC 4.38 Hgb 13.1 Hct 41.1 MCV 93.8 MCH 29.9 MCHC 31.9 RDW 12.5 Plt Count 264 MPV 11.0 H Neut % (Auto) 56.4 Lymph % (Auto) 33.8 [place] % (Auto) 7.3 Eos % (Auto) 1.5 Baso % (Auto) 0.7 Neut # (Auto) 3.87 Lymph # (Auto) 2.3 [place] # (Auto) 0.5 Eos # (Auto) 0.1 Baso # (Auto) 0.1 Nucleated RBC % (a uto) 0 Nucleated RBCs # 0.0 Sodium 137 Potassium 4.0 Chloride 104 Carbon Dioxide 25 Anion Gap 12.0 BUN 18 Creatinine 0.5 GFR Calculation 126.7 Glucose 108 Calculated Osmolal ity 281 L Calcium 8.9 Phosphorus 3.4 Magnesium 2.0 Total Bilirubin 0.3 AST 14 ALT 13 Alkaline Phosphata se 54 Troponin T Hi Sens 6Hr Cancelled Troponin T Hi Sens 6Hr Delta Cancelled Total Protein 6.2 L Albumin 3.4 L Globulin 2.8 Lyme IgG (Western Blot 2) 06/03/20 06/03/20 16:35 11:20 WBC RBC Hgb Hct MCV MCH MCHC RDW Plt Count MPV Neut % (Auto) Lymph % (Auto) [place] % (Auto) Eos % (Auto) Baso % (Auto) Neut # (Auto) Lymph # (Auto) [place] # (Auto) Eos # (Auto) Baso # (Auto) Nucleated RBC % (a uto) Nucleated RBCs # Sodium Potassium Chloride Carbon Dioxide Anion Gap BUN Creatinine GFR Calculation Glucose Calculated Osmolal ity Calcium Phosphorus Magnesium Total Bilirubin AST ALT Alkaline Phosphata se Troponin T Hi Sens 6Hr 7.77 Troponin T Hi Sens 6Hr Delta 0.77 Total Protein Albumin Globulin Lyme IgG (Western Blot 2) <0.90 Vitals: Last Vital Signs Temp 98.0 F 06/04/20 15:41 Pulse 55 L 06/04/20 15:41 Resp 16 06/04/20 15:41 BP 102/63 06/04/20 17:45 Pulse Ox 99 06/04/20 15:41 Discharge Plan Discharge Patient Disposition: Home Condition: Stable Prescriptions: New amoxicillin 500 mg capsule 500 mg PO TID 14 Days Qty: 42 RF: 0 Continued trazodone 100 mg tablet 50 mg PO BEDTIME RF: 0 diazepam 2 mg tablet 2 - 4 mg PO BID PRN (Reason: Anxiety) RF: 0 levothyroxine 125 mcg tablet 125 mcg PO DAILY RF: 0 estradiol 0.5 mg tablet 0.5 mg PO DAILY RF: 0 lisinopril-hydrochlorothiazide 10-12.5 mg tablet 1 tab PO DAILY RF: 0 omeprazole 40 mg capsule,delayed release(DR/EC) 40 mg PO DAILY Qty: 30 RF: 0 Tylenol Extra Strength 500 mg Tablet 500 - 1,000 mg PO PRN RF: 0 Vitamin B-12 See Rx Instructions .ROUTE .COMPLEX RF: 0 Vitamin B-6 1 tab PO DAILY RF: 0 Vitamin D3 [place] See Rx Instructions .ROUTE .COMPLEX RF: 0 Discharge Orders: Discharge Order (Routine); Ordered 06/04/20 Ordered By: Crispin Rick Referrals: Park Raya MD [Physician] - 1 week Acosta Wild DO [Primary Care Provider] - Discharge Diet: Cardiac Discharge Activity: Resume usual activity Activity Restrictions/Additional Instructions: -If you have symptoms of lightheadedness, dizziness, shortness of breath please come back to the emergency room Discharge Attestations Time Spent in Discharge Care*: less than 30 min Quality Metrics Clinical Quality Measures During this hospital stay, did patient experience: None Coding Level of Care Code Acute Senior Ssis Developer for Chg Fwd Diagnoses Pre-syncope R55 Sinus bradycardia R00.1 Hypertension I10 Hypertension type: essential hypertension GERD (gastroesophageal reflux disease) K21.9 Esophagitis presence: without esophagitis Hypothyroidism E03.9 Hypothyroidism type: acquired
--- NOTE | 2020-06-04 18:58 | PC.NURSE ---
Patient R wrist free of hematoma, good cap refill. 2 mls of air removed. Patient has no complaints of pain at this time, alert and oriented. Will continue to monitor.
[2020-06-04 19:30] LABS: Erythrocyte Sedimentation Rate 15 mm/hr (0-15)
--- NOTE | 2020-06-04 19:34 | PM.EVENT ---
Event Note Event Note: Rapid response was called because of patient's confusion Blood work was being drawn when patient said she is feeling nauseous and she fell in her bed feeling extremely lethargic and tired Patient was evaluated at the bedside She was awake, alert but very lethargic and fatigued she could tell me her name date of and what happened clearly Her heart rate was fluctuating between 51-55, atropine 0.4 mg dose was given Initial blood pressure was in low 90s which improved after 2 L of normal saline bolus S1, S2 bradycardia No signs of heart failure Patient was awake alert oriented x3 GCS 15 Abdomen soft, bowel sound present No focal deficit Lungs are clear to auscultation POC 137 EKG unremarkable After her rapid response telemetry showed junctional rhythm heart rate in 30s ABG showed respiratory alkalosis Assessment and plan Symptomatic bradycardia Concern for junctional rhythm on telemetry, I have requested nurse to show it to the food service hotel runner in the morning as well, she will need evaluation for pacemaker for symptomatic bradycardia, right now she is not on any AV mat blocking agents, Lyme disease IgM antibodies pending
--- NOTE | 2020-06-04 19:53 | ECG_ITS ---
[facility] Test Date: 2020-06-04 Pat Name: Ceci Manning Department: Room: 107 Gender: Female Manager Electrical: : 1960 Requested By: Can King Order Number: [id number] Sary MD: Santosh Diehl M.D. Measurements Intervals [place] Rate: 72 P: 70 MA: 173 QRS: -9 QRSD: 90 T: 59 QT: 398 QTc: 436 Interpretive Statements SINUS RHYTHM SEPTAL MYOCARDIAL INFARCTION [40+ ms Q WAVE IN V1/V2], PROBABLY OLD INTERPRETATION BASED ON A DEFAULT AGE OF 40 YEARS Compared to ECG 06/03/2020 18:02:59 Sinus bradycardia no longer present Myocardial infarct finding still present Electronically Signed On 06-05-2020 9:50:42 CDT by Santosh Diehl M.D. [id number]
[2020-06-04 19:56] LABS: Glucose Point of Care 135 mg/dL (70-110)
[2020-06-04 20:02] LABS: ABG PCO2 27.5 mmHg (35-45); ABG PH Result 7.52 (7.35-7.45); Alveolar-Arterial Oxygen Gradi 0.3 mmHg (5-10); Arterial Blood Gas Hematocrit 36.2 % (37-47); Base Excess ABG 0.7 mmol/L (-2.0-2.0); Blood Gas Operator Identificat JB; Blood Gas Sample Site Brachial, right; Blood Gas Sample Type Arterial; Carboxyhemoglobin 0.8 %THgb (0.4-20.1); HCO3 ABG 22.6 mmol/L (22-26); HGB O2 Sat 97.7 % (95-100); Ionized Calcium Level - ABG 1.1 mmol/L (1.1-1.4); Methemoglobin 0.9 % (0.4-1.5); Oxygen Saturation ABG 99.4; Potassium Level - ABG 3.2 mmol/L (3.5-5.0); Total Hemoglobin 11.8 g/dL (12-16)
[2020-06-04 20:03] LABS: Oxygen Device NC
[2020-06-04 20:08] LABS: Hematocrit 37.2 % (37.0-47.0); Hemoglobin 11.8 g/dL (11.5-15.3)
--- NOTE | 2020-06-04 20:09 | PC.NURSE ---
Physician Notification: talked with Dr. Adame regarding patients blood pressure 85/48 and showed him patients vital sign trend. He said to montior patient and if patients systolic pressure was above 90 by the time her TR band was off and by discharge she could be discharged. Will continue to monitor.
--- NOTE | 2020-06-04 20:16 | PC.NURSE ---
At 1948 rapid response called patient heartrate 37 to 45 and blood pressure was 64/37. patient was trendelenburg,and rapid response team arrived. Patient was awake but lethargic. At the end of the rapid patient vitals were blood pressure 127/77 heartrate 65 oxygen on room air was 98% and respirations 16. see rapid response sheet.
[2020-06-04 20:25] LABS: Lactate (Lactic Acid level) 1.2 mmol/L (0.5-2.2)
--- NOTE | 2020-06-04 20:26 | PC.NURSE ---
Dr. King notified patient that she would be staying overnight. Patient agreed. Notifed patients and updated him per patient request.
[2020-06-04 20:27] LABS: Troponin T (5th) Once 6 ng/L (0-10)
[2020-06-04 20:30] LABS: D Dimer 0.45 ug/mIFEU (0-0.59)
[2020-06-04] MEDS: acetaminophen 325 mg Tablet 650 MG PO (20:45)
--- NOTE | 2020-06-04 21:59 | PC.NURSE ---
Patient TR band off at this time. No hematoma noted, No bleeding. Hand is warm good cap refill and sensation. Will continue to monitor.
--- NOTE | 2020-06-04 22:04 | PC.NURSE ---
messaged Dr. King regarding patient having nausea and requesting her Trazadone. Updated on vitals and heart rate. Provider will place orders. Will continue to [facility].
[2020-06-04] MEDS: ondansetron 2 mg/ML SDV 2 mL 4 MG IVP (22:17)
[2020-06-05] VITALS (10 sets, daily range): BP systolic 82–160; BP diastolic 49–87; PULSE 46–774; RESP 14–21; TEMP 36.8–37.1; O2SAT 96–100
[2020-06-05] MEDS: sodium chloride 0.9% 1,000 ML 999 ML IV (01:35)
--- NOTE | 2020-06-05 01:35 | PC.NURSE ---
Patient fluid bolus given at 2014. Fluids ordered and scanned to refill crash cart.
[2020-06-05] MEDS: sodium chloride 0.9% 1,000 ML 100 ML IV (03:38)
[2020-06-05 03:57] LABS: Basophils % 0.4 %; Eosinophils % 0.1 %; Hematocrit 38.5 % (37.0-47.0); Hemoglobin 12.5 g/dL (11.5-15.3); Lymphocytes # 1.8 10^3/uL (0.8-4.8); Lymphocytes % 19.2 %; Mean Corpuscular HGB Conc 32.5 g/dL (30.0-36.0); Mean Corpuscular Hemoglobin 30.3 pg (28.0-34.0); Mean Corpuscular Volume 93.4 fL (81-99); Mean Platelet Volume 10.9 fL (7.4-10.4); Monocytes # 0.3 10^3/uL (0.2-0.9); Monocytes % 3.5 %; Neutrophils % 76.6 %; Nucleated Red Blood Cells % 0 %; Platelet Count 271 10^3/cmm (130-400); Red Blood Count 4.12 10^6/uL (4.1-5.3); Red Cell Distribution Width 12.4 % (12.1-15.1); White Blood Count 9.5 10^3/uL (4.0-10.0)
--- NOTE | 2020-06-05 03:58 | ECG_ITS ---
[facility] Test Date: 2020-06-05 Pat Name: Ceci Manning Department: Room: 107 Gender: Female Clinic Coordinator: : 1960 Requested By: Can King Order Number: [id number] Sary MD: Santosh Diehl M.D. Measurements Intervals [place] Rate: 48 P: 60 VA: 159 QRS: -24 QRSD: 94 T: 31 QT: 467 QTc: 420 Interpretive Statements SINUS BRADYCARDIA BORDERLINE LEFT AXIS DEVIATION [QRS AXIS < -20] Compared to ECG 06/04/2020 19:59:51 Sinus rhythm no longer present Electronically Signed On 06-05-2020 9:47:48 CDT by Santosh Diehl M.D. [id number]
--- NOTE | 2020-06-05 03:59 | PC.NURSE ---
Called Dr. King with patients current heart rate and blood pressure. Provider will place orders. Will continue to monitor.
[2020-06-05 04:17] LABS: Alanine Aminotransferase 12 U/L (0-33); Albumin Level 3.5 g/dL (3.5-5.2); Alkaline Phosphatase 56 IU/L (35-105); Anion Gap 10.6 (5-19); Aspartate Amino Transferase 19 U/L (0-32); Blood Urea Nitrogen 15 mg/dL (6-20); Calcium 8.8 mg/dL (8.5-10.5); Carbon Dioxide 25 mmol/L (22-29); Chloride 107 mmol/L (98-107); Globulin 2.3 g/dL (1.3-4.6); Glomerular Filtration Rate 85.9 mL/min (90-130); Glucose 140 mg/dL (65-115); Magnesium 1.9 mg/dL (1.7-2.3); Osmolality Calculated 287 mOsm/kg (285-295); Phosphorus 3.4 mg/dL (2.5-4.5); Potassium 3.6 mmol/L (3.5-5.1); Sodium 139 mmol/L (136-145); Total Bilirubin 0.3 mg/dL (0.15-1.2); Total Protein 5.8 g/dL (6.6-8.7)
[2020-06-05] MEDS: DOPamine drip 400 MG/250 ML PREMIX 11.5 MG IV (04:19)
--- NOTE | 2020-06-05 04:46 | PC.NURSE ---
Called Dr. King regjadening patient complaint of nausea, light headiness, updated what vitals were on drip and what drip setting were. told to shut dopamine gtt off and monitor patient. Give atropine if needed. Patient IV fluids running at 100mls/hr. Will continue to montior.
--- NOTE | 2020-06-05 13:28 | PM.PN ---
Subjective Subjective: Interval history: Last night, after patient had a few blood draws, she started to feel lightheaded, dizzy, short of breath, her right heart rates were in the 40s, rapid response was called, she received 1 dose of atropine, seemed to improve, but after that she had a junctional rhythm, patient was not discharged last night, was continually monitored, through telemetry monitoring, she remained asymptomatic, continues to have sinus bradycardia in the 40s, no more episodes of junctional rhythm, was able to ambulate this morning, Vitals/I&O/Wt Last Vital Signs Temp 98.7 F 06/05/20 11:11 Pulse 55 L 06/05/20 11:11 Resp 18 06/05/20 11:11 BP 131/62 06/05/20 11:11 Pulse Ox 100 06/05/20 11:11 06/04/20 06/05/20 06/05/20 22:59 06:59 14:59 Intake Total 360 / 410 4.6 / 414.6 120 / 120 Balance 360 / 410 4.6 / 414.6 120 / 120 Physical Exam Const: COMMON NORMALS: no acute distress and patient oriented x3 HENMT: COMMON NORMALS: normocephalic HEAD & SCALP: normocephalic Neck/C-Spine: COMMON NORMALS: no JVD Resp: COMMON NORMALS: normal respiratory effort, No retractions, No use of accessory muscles and clear to auscultation bilaterally AUSCULTATION: clear to auscultation bilaterally Cardio: COMMON NORMALS: no JVD, regular rate, regular rhythm, S1 normal heart sound present and S2 normal heart sound present RATE: regular rate RHYTHM: regular rhythm HEART SOUNDS: S1 normal heart sound present and S2 normal heart sound present GI: COMMON NORMALS: Normal to inspection, nondistended, normoactive bowel sounds present, Soft to palpation, non-tender, No hepatosplenomegaly present, no masses and no bruits PALPATION: Yes Soft to palpation and Yes No hepatosplenomegaly present Extremity: COMMON NORMALS: capillary refill normal, no clubbing, cyanosis or edema, no calf tenderness and no pedal edema Neuro: COMMON NORMALS: patient oriented x3 Psych: COMMON NORMALS: mental status grossly normal Data : 06/05/20 03:20 06/05/20 03:20 A&P Assessment and plan (1) Pre-syncope: -Holter monitor did show episodes of sinus bradycardia, heart rates in the low 50s -EKG during this hospitalization poor quality study, will repeat, sinus bradycardia heart rate in the 50s, MD interval 155 ms, QRS 102 ms, QTC 460 ms, no blocks, moderate ST depression -Echocardiogram on last admission shows EF of 65%, no regional wall motion abnormalities -Stress test on last admission showed myocardial perfusion showing patchy areas of persistent decreased tracer uptake in the apical and inferior lateral regions, no gross wall motion abnormalities -Head CT on last admission showed no acute abnormalities -TSH, ESR, CRP within normal limits -Carotid ultrasound no significant carotid artery stenosis, bilateral lower extremity ultrasounds negative for DVT -Cardiac catheterization no significant obstructive CAD -Last night had episode of sinus bradycardia, symptomatic, with junctional rhythm Plan: -Cardiology has been consulted, Dr. Raya to see, consideration for pacemaker placement versus electrophysiology evaluation -Atropine as needed, continue telemetry monitoring, continue to monitor for symptomatic bradycardia Status: Acute (2) Sinus bradycardia: Status: Acute (3) Hypertension: Status: Acute Qualifiers: Hypertension type: essential hypertension Qualified Code(s): I10 - Essential (primary) hypertension (4) GERD (gastroesophageal reflux disease): Status: Acute Qualifiers: Esophagitis presence: without esophagitis Qualified Code(s): K21.9 - Gastro-esophageal reflux disease without esophagitis (5) Hypothyroidism: Status: Acute Qualifiers: Hypothyroidism type: acquired Qualified Code(s): E03.9 - Hypothyroidism, unspecified (6) Junctional rhythm: Status: Acute Additional A&P Information Full code, Lovenox DVT prophylaxis Attestations Medical Necessity Statement*: Hospitalization for sinus bradycardia, junctional rhythm, consideration pacemaker placement versus electrophysiology study Coding Level of Care Code 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
--- NOTE | 2020-06-05 17:40 | PC.NURSE ---
DISCUSSED HOME MEDICATIONS WITH DR. LEARY, ORDERED TO RESTART LISINOPRIL, LEVOTHYROXINE, HCTZ AND TRAZODONE.
--- NOTE | 2020-06-05 19:22 | P.PN_ITS ---
Subjective Subjective: Interval history: Patient had an episode of bradycardia, following IV blood drawing. Her blood pressure dropped into the 60s. She was given IV atropine. Following this episode, she went into a brief episode of junctional rhythm. Her blood pressure and heart rate slowly started coming up. The heart rate is still in the upper 40s and low 50s. Blood pressure was in the 90s for a while. Currently the blood pressure is in the normal range. No fever or chills. No cough. No shortness of breath. According the patient, symptoms are exactly similar to what she had at home during the previous episodes of syncope/near syncope. She has no chest pain at this time. Medications: Reviewed: Yes Medication Review Details: Current Medications Acetaminophen (Tylenol) 650 mg PO Q6H PRN PRN Reason: MILD PAIN Last Admin: 06/04/20 20:45 Dose: 650 mg Documented by: Al Hydrox/Mg Hydrox/Simethicone (Maalox) 30 ml PO Q15M PRN PRN Reason: INDIGESTION Atropine Sulfate (Atropine Syr) 0.5 mg IVP Q5MIN PRN PRN Reason: HR<40, and symptoms of lighthe Diazepam (Valium) 2 - 4 mg PO BID PRN PRN Reason: Anxiety Enoxaparin Sodium (Lovenox) 40 mg SUBCUT Q24H [facility] Last Admin: 06/04/20 13:31 Dose: Not Given Documented by: Hydrochlorothiazide (Hctz) 12.5 mg PO DAILY [facility] Last Admin: 06/04/20 08:25 Dose: 12.5 mg Documented by: Ceftriaxone Sodium 2,000 mg/ (Sodium Chloride) 50 mls @ 100 mls/hr IV DAILY [facility]; Protocol Last Infusion: 06/04/20 08:50 Dose: Infused Documented by: Dopamine HCl/Dextrose (Intropin Drip) 400 mg in 250 mls @ 11.482 mls/hr IV CONT [facility]; Protocol Last Titration: 06/05/20 04:43 Dose: 0 mcg/kg/min, 0 mls/hr Documented by: Cefazolin Sodium 1,000 mg/ (Sodium Chloride) 50 mls @ 100 mls/hr IV [facility]; Protocol Stop: 06/06/20 12:29 Sodium Chloride (Sodium Chloride 0.9%) 1,000 mls @ 75 mls/hr IV .[id number] [facility] Levothyroxine Sodium (Synthroid) 125 mcg PO DAILY [facility] Last Admin: 06/04/20 08:24 Dose: 125 mcg Documented by: Lisinopril (Prinivil) 10 mg PO DAILY [facility] Last Admin: 06/04/20 08:25 Dose: 10 mg Documented by: Magnesium Hydroxide (Milk Of Magnesia) 30 ml PO DAILY PRN PRN Reason: CONSTIPATION Naloxone HCl (Narcan) 0.1 mg IVP Q2M PRN PRN Reason: RESPIRATORY RATE < 8/MIN Nitroglycerin (Nitrostat) 0.4 mg SUBLINGUAL Q5M PRN PRN Reason: CHEST PAIN Ondansetron HCl (Zofran) 4 mg IVP Q8H PRN PRN Reason: vomiting, or N/V if npo Pantoprazole Sodium (Protonix) 40 mg PO DAILY [facility] Last Admin: 06/04/20 08:24 Dose: 40 mg Documented by: Trazodone HCl (Desyrel) 50 mg PO BEDTIME [facility] Last Admin: 06/03/20 20:34 Dose: 50 mg Documented by: Vitals/I&O/Wt Last Vital Signs Temp 98.7 F 06/05/20 11:11 Pulse 54 L 06/05/20 16:26 Resp 16 06/05/20 16:26 BP 157/71 06/05/20 16:26 Pulse Ox 98 06/05/20 16:26 06/05/20 06/05/20 06/05/20 06:59 14:59 22:59 Intake Total 4.6 / 414.6 1120 / 1120 Balance 4.6 / 414.6 1120 / 1120 Physical Exam Narrative: EXAM NARRATIVE: GENERAL: The patient is alert and oriented times three. Not in any acute distress. HEENT: No significant pallor, icterus or lymphadenopathy. NECK: Trachea appears to be central. No masses noted. No JVD or thyromegaly appreciated. No carotid bruit. RESPIRATORY: Chest is symmetrical. No intercostals muscle retraction or any accessory muscle activation. There is no chest wall tenderness. Breath sounds are heard bilaterally. No rales or rhonchi heard. No evidence of any consolidation. BREASTS: Deferred. HEART: Heart sounds are normal no S3 or S4. No significant murmurs. ABDOMEN: No vessel pulsations or distention. No tenderness. No organomegaly appreciated. No abdominal bruit. Bowel sounds are normally heard. : Deferred. RECTAL: Deferred. LYMPHATIC: No lymphadenopathy noted in the neck or groin. EXTREMITIES: No edema or cyanosis. No clubbing. The pulses are symmetrical leidy aterally. The radial, femoral, dorsalis pedis and the posterior tibial pulses are palpated and found to be in good volume and amplitude. MUSCULOSKELETAL: No acute joint deformities or swelling SKIN: There are no significant scars or skin rash noted. NEUROPSYCHIATRIC: The patient is alert and oriented x3. Appears to be in a good mood. The higher functions are grossly within normal limits. No tremors or rigidity noted. Const: COMMON NORMALS: alert Resp: COMMON NORMALS: clear to auscultation bilaterally AUSCULTATION: clear to auscultation bilaterally Neuro: SENSORIUM/ORIENTATION: Yes alert Data : 06/06/20 04:09 06/06/20 04:09 A&P Assessment and plan (1) Pre-syncope: Clinical features are consistent with sinus mat dysfunction with vasovagal reaction. She seems to have both cardioinhibitory and vasodepressor type of reaction. She also seems to have some chronotropic incompetence. In view of her recurrent episodes of syncope/near syncope, for further management of her condition, she requires a permanent pacemaker implantation. Idiscussed her case with my electrophysiology colleagues . She does not require any EP studies at this point. Status: Acute (2) Sinus bradycardia: Likely the patient has sinus mat dysfunction along with chronotropic incompetence. Status: Acute (3) Hypertension: Currently the blood pressure is within normal limits. May continue on the current medications. Status: Acute Qualifiers: Hypertension type: essential hypertension Qualified Code(s): I10 - Essential (primary) hypertension (4) GERD (gastroesophageal reflux disease): May continue on the current medications. Status: Acute Qualifiers: Esophagitis presence: without esophagitis Qualified Code(s): K21.9 - Gastro-esophageal reflux disease without esophagitis (5) Hypothyroidism: Clinically appears euthyroid. May continue other medications. Status: Acute Qualifiers: Hypothyroidism type: acquired Qualified Code(s): E03.9 - Hypothyroidism, unspecified Additional A&P Information I discussed with the patient and her in detail about the current condition and further management options. She requires a permanent pacer implantation, for further management. The risk of bleeding, hematoma, vascular injury, pneumothorax, infection, renal failure and other concomitant complications were explained in detail. The patient patient under understood this well and consented to proceed. We may go ahead and schedule her for this procedure tomorrow. She will be kept n.p.o. after midnight. Attestations Medical Necessity Statement*: Patient need to be monitored in the hospital and schedule for possible pacemaker implantation tomorrow Coding Level of Care Code Acute [employer] Intern for g Fwd Exam Expanded Problem Focused Diagnoses Pre-syncope R55 Sinus bradycardia R00.1 Hypertension I10 Hypertension type: essential hypertension GERD (gastroesophageal reflux disease) K21.9 Esophagitis presence: without esophagitis Hypothyroidism E03.9 Hypothyroidism type: acquired
[2020-06-05] MEDS: trazodone 50 mg Tablet PO (21:30)
--- NOTE | 2020-06-05 23:11 | PC.NURSE ---
pt resting in bed, A&OX4, respirations even and unlabored on room air, meds taken whole without difficulty, IV removed d/t leaking, new 22g started to R wrist, pt denies pain or any further needs at this time, clwr, continue to monitor
[2020-06-06] VITALS (10 sets, daily range): BP systolic 103–148; BP diastolic 53–82; PULSE 50–85; RESP 13–30; TEMP 36.6–36.9; O2SAT 96–98
[2020-06-06 05:07] LABS: Basophils % 0.7 %; Eosinophils # 0.1 10^3/uL (0.0-0.8); Eosinophils % 1.8 %; Hematocrit 39.3 % (37.0-47.0); Hemoglobin 12.2 g/dL (11.5-15.3); Lymphocytes # 2.6 10^3/uL (0.8-4.8); Lymphocytes % 42.2 %; Mean Corpuscular Hemoglobin 29.5 pg (28.0-34.0); Mean Corpuscular Volume 94.9 fL (81-99); Mean Platelet Volume 11.2 fL (7.4-10.4); Monocytes # 0.5 10^3/uL (0.2-0.9); Monocytes % 7.5 %; Neutrophils # 2.91 10^3/uL (1.8-7.7); Neutrophils % 47.5 %; Nucleated Red Blood Cells % 0 %; Platelet Count 248 10^3/cmm (130-400); Red Blood Count 4.14 10^6/uL (4.1-5.3); Red Cell Distribution Width 12.5 % (12.1-15.1); White Blood Count 6.1 10^3/uL (4.0-10.0)
[2020-06-06 05:53] LABS: Alanine Aminotransferase 13 U/L (0-33); Albumin Level 3.3 g/dL (3.5-5.2); Alkaline Phosphatase 52 IU/L (35-105); Anion Gap 10.8 (5-19); Aspartate Amino Transferase 13 U/L (0-32); Blood Urea Nitrogen 15 mg/dL (6-20); Calcium 8.5 mg/dL (8.5-10.5); Carbon Dioxide 24 mmol/L (22-29); Chloride 111 mmol/L (98-107); Globulin 2.8 g/dL (1.3-4.6); Glomerular Filtration Rate 102.7 mL/min (90-130); Glucose 97 mg/dL (65-115); Osmolality Calculated 290 mOsm/kg (285-295); Phosphorus 2.8 mg/dL (2.5-4.5); Potassium 3.8 mmol/L (3.5-5.1); Sodium 142 mmol/L (136-145); Total Bilirubin 0.2 mg/dL (0.15-1.2); Total Protein 6.1 g/dL (6.6-8.7)
[2020-06-06] MEDS: hydroCHLOROthiazide 25 mg Tablet 12.5 MG PO (08:33)
[2020-06-06] MEDS: lisinopril 10 mg Tablet PO (08:33)
[2020-06-06] MEDS: sodium chloride 0.9% 1,000 ML 75 ML IV ×2 (08:33→20:34)
[2020-06-06] MEDS: levothyroxine 125 mcg Tablet PO (08:33)
[2020-06-06 13:46] LABS: Lyme AB Screen <0.90 index
--- NOTE | 2020-06-06 13:54 | P.PN_ITS ---
Subjective Subjective: Interval history: Patient is doing well this morning, no chest pain, no shortness of breath, no lightheadedness, no dizziness, no significant episodes of bradycardia overnight, is n.p.o. for her pacemaker placement this morning Vitals/I&O/Wt Last Vital Signs Temp 97.8 F 06/06/20 11:45 Pulse 53 L 06/06/20 11:45 Resp 23 H 06/06/20 11:45 BP 148/82 06/06/20 11:45 Pulse Ox 98 06/06/20 11:45 Physical Exam Const: COMMON NORMALS: no acute distress and patient oriented x3 HENMT: COMMON NORMALS: normocephalic HEAD & SCALP: normocephalic Neck/C-Spine: COMMON NORMALS: no JVD Resp: COMMON NORMALS: normal respiratory effort, No retractions, No use of accessory muscles and clear to auscultation bilaterally AUSCULTATION: clear to auscultation bilaterally Cardio: COMMON NORMALS: no JVD, regular rate, regular rhythm, S1 normal heart sound present and S2 normal heart sound present RATE: regular rate RHYTHM: regular rhythm HEART SOUNDS: S1 normal heart sound present and S2 normal heart sound present GI: COMMON NORMALS: Normal to inspection, nondistended, normoactive bowel so unds present, Soft to palpation, non-tender, No hepatosplenomegaly present, no masses and no bruits PALPATION: Yes Soft to palpation and Yes No hepatosplenomegaly present Extremity: COMMON NORMALS: capillary refill normal, no clubbing, cyanosis or edema, no calf tenderness and no pedal edema Neuro: COMMON NORMALS: patient oriented x3 Psych: COMMON NORMALS: mental status grossly normal Data : 06/06/20 04:09 06/06/20 04:09 A&P Assessment and plan (1) Pre-syncope: -Holter monitor did show episodes of sinus bradycardia, heart rates in the low 50s -EKG during this hospitalization poor quality study, will repeat, sinus bradycardia heart rate in the 50s, ND interval 155 ms, QRS 102 ms, QTC 460 ms, no blocks, moderate ST depression -Echocardiogram on last admission shows EF of 65%, no regional wall motion abnormalities -Stress test on last admission showed myocardial perfusion showing patchy areas of persistent decreased tracer uptake in the apical and inferior lateral regions, no gross wall motion abnormalities -Head CT on last admission showed no acute abnormalities -TSH, ESR, CRP within normal limits -Carotid ultrasound no significant carotid artery stenosis, bilateral lower extremity ultrasounds negative for DVT -Cardiac catheterization no significant obstructive CAD -Last night had episode of sinus bradycardia, symptomatic, with junctional rhythm Plan: -Cardiology has been consulted, Dr. Raya to see, plans on pacemaker placement this afternoon -Atropine as needed, continue telemetry monitoring, continue to monitor for symptomatic bradycardia -Continue Rocephin for Lyme disease Status: Acute (2) Sinus bradycardia: Status: Acute (3) Hypertension: Status: Acute Qualifiers: Hypertension type: essential hypertension Qualified Code(s): I10 - Essential (primary) hypertension (4) GERD (gastroesophageal reflux disease): Status: Acute Qualifiers: Esophagitis presence: without esophagitis Qualified Code(s): K21.9 - Gastro-esophageal reflux disease without esophagitis (5) Hypothyroidism: Status: Acute Qualifiers: Hypothyroidism type: acquired Qualified Code(s): E03.9 - Hypothyroidism, unspecified (6) Junctional rhythm: Status: Acute Additional A&P Information Full code, Lovenox DVT prophylaxis Attestations Medical Necessity Statement*: Patient requires hospitalization for symptomatic bradycardia Coding Level of Care Code 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
--- NOTE | 2020-06-06 16:55 | W.PM.OPSUD ---
Surgery/Procedure H&P Update DATE OF PROCEDURE: June 06, 2020 DATE H&P PERFORMED: 06/03/20 H&P UPDATE INFORMATION: I have reviewed H&P completed within last 30 days and I have examined patient prior to procedure PREOP DIAGNOSIS: Atypical chest pain/recurrent episodes of syncope/near syncope PRIMARY INDICATION FOR PROCEDURE: Symptomatic bradycardia/sinus node dysfunction PLANNED PROCEDURE: Operation Date: 06/04/20 16:30 Proposed Procedures p Cardiac Catheterization(Left) - Park Raya MD Operation Date: 06/06/20 16:30 Proposed Procedures p Pacemaker Insertion(Not Applicable) - Park Raya MD Operation Date: 06/18/20 16:30 Proposed Procedures p Cardiac Catheterization(Not Applicable) - Park Raya MD PATIENT REASSESSED PRIOR TO SEDATION, WITH NO CHANGE NOTED: Yes PHYSICAL EXAM: alert, oriented x 3, clear to auscultation bilaterally and regular rate & rhythm AIRWAY EVAL/ANESTHESIA PLAN: normal airway, see other exam findings, ASA II, Risks, benefits & alternatives of sedation and/or procedure discussed and Patient agrees to continue as planned
--- NOTE | 2020-06-06 17:28 | PC.NURSE ---
HIBICLENS PERFORMED AT 1200.
--- NOTE | 2020-06-06 19:12 | P.OP_ITS ---
Operative Report Date of procedure: June 06, 2020 Pre-op Diagnosis: Atypical chest pain/recurrent episodes of syncope/near syncope Procedure: LOCATION: PREOPERATIVE DIAGNOSES: Sinus node dysfunction/symptomatic bradycardia/recurrent syncope. POSTOPERATIVE DIAGNOSES: Same. COMPLICATIONS: None. ESTIMATED BLOOD LOSS: Around 5 milliliters. BRIEF HISTORY: 60-year-old white female, readmitted to hospital with complaints of syncope/near syncope. She was found to have episodes of bradycardia and hypotension. She also was found to have features of sinus node dysfunction. For further management of her condition a permanent pacemaker implantation was recommended. A dual-chamber permanent pacemaker implantation was recommended for further management of her condition for AV synchrony and symptom relief. The procedure was explained to the patient in detail with the risks and benefits. The risks of bleeding, hematoma, vascular injury, infection, pneumothorax, myocardial perforation and other concomitant complications were explained in detail, which the patient understood well and consented to proceed. PROCEDURE DESCRIPTION: The patient was brought to the Cardiac Catheterization Lab. The left and the right side of the neck and the subclavian area were cleaned and draped in a sterile fashion. 1% Xylocaine was used as the local anesthetic agent. A left subclavian venous access was obtained using a micropuncture needle system. Under venographic guidance, the patient was injected with 20 milliliters of Omnipaque through the left antecubital vein. A two-inch long incision was made 2.0 centimeters below the midclavicular region. By sharp and blunt dissection, a pacemaker pocket was made. A second venous access was obtained using another micropuncture needle system. Over the first guidewire, a 7-Icelandic venous sheath with dilator was advanced. The venous dilator and the guidewire were taken out. A screw-in ventricular lead was advanced through the venous sheath and was positioned towards the right ventricle. Under fluoroscopy guidance, the ventricular lead was positioned toward the right ventricular apex. Good pacing and sensing thresholds were obtained. The lead was secured to the endocardium by advancing the helix. The stability of the lead was tested by gentle twisting movements and also by asking the patient to take some deep breaths and cough. The venous sheath was peeled off, at this time. The lead was secured to the pectoralis fascia, by suturing with 1-0 Surgilon. Over the second guidewire, another 7-Icelandic venous sheath with dilator was advanced. The dilator and the guidewire were taken out. Under fluoroscopy guidance, an atrial lead (Medtronic), was advanced and positioned toward the right atrium. The lead was positioned in the right atrial appendage. Good pacing and sensing thresholds were obtained. The lead was secured to the endocardium by advancing the helix. Stability of the lead was tested by gentle twisting movements and also by asking the patient to take some deep breaths and cough. The venous sheath was peeled off, at this time. The lead was secured to the pectoralis fascia by suturing with 0-Surgilon. The pacemaker pocket was copiously irrigated with vancomycin solution. Complete hemostasis was achieved. Sponge counts were confirmed. The leads were attached to a Medtronic generator. The leads were positioned behind the generator and the generator was attached to the pectoralis fascia by suturing with 0-Surgilon. The pocket was closed in layers. Skin was approximated using 4-0 Vicryl. IMPLANTED DEVICES: ATRIAL LEAD: Model number: 50 76/45 Serial number: [id number] Make: Medtronic VENTRICULAR LEAD: Model number: 50 76/52 Serial number: [id number] Make: Medtronic GENERATOR Brand: Tona XT DR DALIA Mccauley Model number: [id number] Serial number: [id number] Make: Medtronic IMPLANTATION DATA: With the pacing system analyzer, the R wave sensing was 7.1 millivolts with a lead impedance of 646 and a pacing threshold was 0.75 volts at 0.4 milliseconds. In the atrium, the sensing was 2.0 millivolts with a lead impedance of 475 ohms and a pacing threshold was 0.75 volts at 0.4 milliseconds. Through the device, the R-wave sensing was 7.0 millivolts with a lead impedance of 570 ohms and a pacing threshold was 0.75 volts at 0.4 milliseconds. The atrial sensing was 1.8 millivolts with a lead impedance of 456 ohms and a pacing threshold of 0.75 volts at 0.4 milliseconds. The pacemaker was set for AAI/DDD mode with upper rate of 130 and a lower rate of 50. The rate drop response was turned on A pressure dressing was applied over the pacemaker site. The patient was transferred to the Medical Floor in stable condition. A chest x-ray was ordered to confirm the lead position and also to rule out any pneumothorax.
--- NOTE | 2020-06-06 19:37 | PC.NURSE ---
Patient received from clinical lab assistant s/p pacemaker placement at 191. Patient has pressure dressing in place to left upper chest. No s/s of bleeding or hematoma formation observed. Patient denies pain to site. Immobilizer in place. Assisted patient up to bathroom. Patient tolerated well. Patient placed on telemetry.
[2020-06-06] MEDS: acetaminophen 325 mg Tablet 650 MG PO (20:44)
[2020-06-06] MEDS: cefTRIAXone 2,000 MG in sodium chloride 0.9% (plus) 50 ML 100 MG IV (20:47)
--- NOTE | 2020-06-06 20:57 | PM.PN ---
Subjective Subjective: Interval history: Is feeling okay. She denies any chest pain or palpitation. No fever or chills. No cough. No other specific complaints. Medications: Reviewed: Yes Medication Review Details: Current Medications Acetaminophen (Tylenol) 650 mg PO Q6H PRN PRN Reason: MILD PAIN Last Admin: 06/06/20 20:44 Dose: 650 mg Documented by: Hydrocodone Bitart/Acetaminophen ([place] 5-325 Mg) 1 tab PO Q4H PRN PRN Reason: MODERATE PAIN Al Hydrox/Mg Hydrox/Simethicone (Maalox) 30 ml PO Q15M PRN PRN Reason: INDIGESTION Atropine Sulfate (Atropine Syr) 0.5 mg IVP Q5MIN PRN PRN Reason: HR<40, and symptoms of lighthe Diazepam (Valium) 2 - 4 mg PO BID PRN PRN Reason: Anxiety Enoxaparin Sodium (Lovenox) 40 mg SUBCUT Q24H [facility] Last Admin: 06/04/20 13:31 Dose: Not Given Documented by: Estradiol (Estrace) 0.5 mg PO DAILY [facility] Hydrochlorothiazide (Hctz) 12.5 mg PO DAILY [facility] Last Admin: 06/06/20 08:33 Dose: 12.5 mg Documented by: Sodium Chloride (Sodium Chloride 0.9%) 1,000 mls @ 75 mls/hr IV .[id number] [facility] Last Admin: 06/06/20 20:34 Dose: 75 mls/hr Documented by: Cefazolin Sodium/Dextrose (Kefzol) 2 gm in 50 mls @ 100 mls/hr IV Q8H [facility]; Protocol Stop: 06/07/20 17:29 Ceftriaxone Sodium 2,000 mg/ (Sodium Chloride) 50 mls @ 100 mls/hr IV Q24H [facility]; Protocol Last Admin: 06/06/20 20:52 Dose: Not Given Documented by: Levothyroxine Sodium (Synthroid) 125 mcg PO DAILY [facility] Last Admin: 06/06/20 08:33 Dose: 125 mcg Documented by: Lisinopril (Prinivil) 10 mg PO DAILY [facility] Last Admin: 06/06/20 08:33 Dose: 10 mg Documented by: Magnesium Hydroxide (Milk Of Magnesia) 30 ml PO DAILY PRN PRN Reason: CONSTIPATION Naloxone HCl (Narcan) 0.1 mg IVP Q2M PRN PRN Reason: RESPIRATORY RATE < 8/MIN Nitroglycerin (Nitrostat) 0.4 mg SUBLINGUAL Q5M PRN PRN Reason: CHEST PAIN Non-Formulary Medication (Vitamin D3 [place]) see rx instructions % XX .COMPLEX [place] Ondansetron HCl (Zofran) 4 mg IVP Q8H PRN PRN Reason: vomiting, or N/V if npo Pantoprazole Sodium (Protonix) 40 mg PO DAILY [facility] Last Admin: 06/04/20 08:24 Dose: 40 mg Documented by: Pyridoxine HCl (Vitamin B-6) 50 mg PO DAILY [facility] Trazodone HCl (Desyrel) 50 mg PO BEDTIME [facility] Last Admin: 06/05/20 21:30 Dose: 50 mg Documented by: Vitals/I&O/Wt Last Vital Signs Temp 98.5 F 06/06/20 15:26 Pulse 78 06/06/20 20:29 Resp 30 H 06/06/20 19:41 BP 124/74 06/06/20 19:41 Pulse Ox 98 06/06/20 20:29 06/06/20 06/06/20 06/06/20 06:59 14:59 22:59 Intake Total 901.25 / 901.25 Balance 901.25 / 901.25 Physical Exam Narrative: EXAM NARRATIVE: GENERAL: The patient is alert and oriented times three. Not in any acute distress. HEENT: No significant pallor, icterus or lymphadenopathy. NECK: Trachea appears to be central. No masses noted. No JVD or thyromegaly appreciated. No carotid bruit. RESPIRATORY: Chest is symmetrical. No intercostals muscle retraction or any accessory muscle activation. There is no chest wall tenderness. Breath sounds are heard bilaterally. No rales or rhonchi heard. No evidence of any consolidation. BREASTS: Deferred. HEART: Heart sounds are normal no S3 or S4. No significant murmurs. ABDOMEN: No vessel pulsations or distention. No tenderness. No organomegaly appreciated. No abdominal bruit. Bowel sounds are normally heard. : Deferred. RECTAL: Deferred. LYMPHATIC: No lymphadenopathy noted in the neck or groin. EXTREMITIES: No edema or cyanosis. No clubbing. The pulses are symmetrical bilaterally. The radial, femoral, dorsalis pedis and the posterior tibial pulses are palpated and found to be in good volume and amplitude. MUSCULOSKELETAL: No acute joint deformities or swelling SKIN: There are no significant scars or skin rash noted. NEUROPSYCHIATRIC: The patient is alert and oriented x3. Appears to be in a good mood. The higher functions are grossly within normal limits. No tremors or rigidity noted. Const: COMMON NORMALS: alert Resp: COMMON NORMALS: clear to auscultation bilaterally AUSCULTATION: clear to auscultation bilaterally Neuro: SENSORIUM/ORIENTATION: Yes alert Data : 06/06/20 04:09 06/06/20 04:09 A&P Assessment and plan (1) Pre-syncope: Clinical features are consistent with sinus mat dysfunction with vasovagal reaction. She seems to have both cardioinhibitory and vasodepressor type of reaction. She also seems to have some chronotropic incompetence. In view of her recurrent episodes of syncope/near syncope, for further management of her condition, she requires a permanent pacemaker implantation. Patient is here for the permanent pacer implantation today. Status: Acute (2) Sinus bradycardia: Likely the patient has sinus mat dysfunction along with chronotropic incompetence. Status: Acute (3) Hypertension: Currently the blood pressure is within normal limits. May continue on the current medications. Status: Acute Qualifiers: Hypertension type: essential hypertension Qualified Code(s): I10 - Essential (primary) hypertension (4) GERD (gastroesophageal reflux disease): May continue on the current medications. Status: Acute Qualifiers: Esophagitis presence: without esophagitis Qualified Code(s): K21.9 - Gastro-esophageal reflux disease without esophagitis (5) Hypothyroidism: Clinically appears euthyroid. May continue other medications. Status: Acute Qualifiers: Hypothyroidism type: acquired Qualified Code(s): E03.9 - Hypothyroidism, unspecified Additional A&P Information Patient is scheduled for permanent pacer implantation this afternoon. Will keep the patient n.p.o. Attestations Medical Necessity Statement*: Patient requires continued hospital stay for close monitoring and further management Coding Level of Care Code Acute Import Export Agent for Chg Fwd Diagnoses Pre-syncope R55 Sinus bradycardia R00.1 Hypertension I10 Hypertension type: essential hypertension GERD (gastroesophageal reflux disease) K21.9 Esophagitis presence: without esophagitis Hypothyroidism E03.9 Hypothyroidism type: acquired
[2020-06-06] MEDS: ondansetron 2 mg/ML SDV 2 mL 4 MG IVP (21:54)
[2020-06-06] MEDS: trazodone 50 mg Tablet PO (21:59)
--- NOTE | 2020-06-06 22:08 | PC.NURSE ---
Patient c/o nause. Zofran given as ordered. Patient expressed immediately relief. Assisted patient up to bathroom. Patient tolerated fair.
[2020-06-07] VITALS (10 sets, daily range): BP systolic 78–132; BP diastolic 41–75; PULSE 49–100; RESP 13–23; TEMP 36.6–36.8; O2SAT 92–98
--- NOTE | 2020-06-07 | XRR_ITS ---
PROCEDURE INFORMATION: Exam: XR Chest, 1 View Exam date and time: 06/07/2020 5:02 PM Age: 60 years old Clinical indication: Device placement; Cardiac pacemaker placement or adjustment; Additional info: Status post permanent pacemaker implantation TECHNIQUE: Imaging protocol: XR of the chest Views: 1 view. COMPARISON: CR XR chest 1V portable [id number] 06/03/2020 11:47 AM FINDINGS: Tubes, catheters and devices: There is a dual lead pacemaker. Lungs: Unremarkable. No consolidation. Pleural space: Unremarkable. No pleural effusion. No pneumothorax. Heart/Mediastinum: Unremarkable. No cardiomegaly. Bones/joints: Unremarkable. XR/XR chest 1V portable [id number] IMPRESSION: There are no acute concerning abnormalities.
--- NOTE | 2020-06-07 06:00 | ECG_ITS ---
[facility] Test Date: 2020-06-07 Pat Name: Ceci Manning Department: Room: 107 Gender: Female [employer] Teacher: richmond MARTINSB: 1960 Requested By: Park Raya Order Number: [id number] Okeefe MD: Jessica Hand M.D. Measurements Intervals [place] Rate: 50 P: 133 RI: 188 QRS: -12 QRSD: 94 T: 58 QT: 467 QTc: 426 Interpretive Statements ELECTRONIC ATRIAL PACEMAKER ABNORMAL RHYTHM ECG Compared to ECG 06/05/2020 04:16:35 Sinus bradycardia no longer present Electronically Signed On 06-07-2020 20:51:28 CDT by Jessica Hand M.D. [id number]
--- NOTE | 2020-06-07 09:21 | PC.RESP ---
PATIENT DOES NOT HAVE A QUALIFYING HX OF LUNG DISEASE AND DOES NOT QUALIFY FOR PULMONARY REHAB AT THIS TIME.
[2020-06-07] MEDS: pyridoxine 50 mg Tablet PO (09:59)
[2020-06-07] MEDS: estradiol 1 mg Tablet 0.5 MG PO (09:59)
[2020-06-07] MEDS: hydroCHLOROthiazide 25 mg Tablet 12.5 MG PO (10:32)
[2020-06-07] MEDS: pantoprazole DR 40 mg Tablet PO (10:33)
[2020-06-07] MEDS: lisinopril 10 mg Tablet PO (10:33)
--- NOTE | 2020-06-07 10:52 | PM.PN ---
Subjective Subjective: Interval history: Patient had the dual-chamber permanent pacer implantation yesterday. She is doing okay with no recurrence of symptoms. Chest x-ray revealed appropriate positioning of the pacer leads. No pneumothorax. She has no hematoma or bleeding from the pacemaker insertion site. Medications: Reviewed: Yes Medication Review Details: Current Medications Acetaminophen (Tylenol) 650 mg PO Q6H PRN PRN Reason: MILD PAIN Last Admin: 06/06/20 20:44 Dose: 650 mg Documented by: Hydrocodone Bitart/Acetaminophen ([place] 5-325 Mg) 1 tab PO Q4H PRN PRN Reason: MODERATE PAIN Al Hydrox/Mg Hydrox/Simethicone (Maalox) 30 ml PO Q15M PRN PRN Reason: INDIGESTION Atropine Sulfate (Atropine Syr) 0.5 mg IVP Q5MIN PRN PRN Reason: HR<40, and symptoms of lighthe Diazepam (Valium) 2 - 4 mg PO BID PRN PRN Reason: Anxiety Enoxaparin Sodium (Lovenox) 40 mg SUBCUT Q24H [facility] Last Admin: 06/04/20 13:31 Dose: Not Given Documented by: Estradiol (Estrace) 0.5 mg PO DAILY [facility] Last Admin: 06/07/20 09:59 Dose: 0.5 mg Documented by: Hydrochlorothiazide (Hctz) 12.5 mg PO DAILY [facility] Last Admin: 06/07/20 10:32 Dose: 12.5 mg Documented by: Sodium Chloride (Sodium Chloride 0.9%) 1,000 mls @ 75 mls/hr IV .[id number] [facility] Last Admin: 06/06/20 20:34 Dose: 75 mls/hr Documented by: Cefazolin Sodium/Dextrose (Kefzol) 2 gm in 50 mls @ 100 mls/hr IV Q8H [facility]; Protocol Stop: 06/07/20 17:29 Last Admin: 06/07/20 09:59 Dose: 100 mls/hr Documented by: Ceftriaxone Sodium 2,000 mg/ (Sodium Chloride) 50 mls @ 100 mls/hr IV Q24H [facility]; Protocol Last Infusion: 06/06/20 21:30 Dose: Infused Documented by: Levothyroxine Sodium (Synthroid) 125 mcg PO DAILY [facility] Last Admin: 06/06/20 08:33 Dose: 125 mcg Documented by: Lisinopril (Prinivil) 10 mg PO DAILY [facility] Last Admin: 06/07/20 10:33 Dose: 10 mg Documented by: Magnesium Hydroxide (Milk Of Magnesia) 30 ml PO DAILY PRN PRN Reason: CONSTIPATION Naloxone HCl (Narcan) 0.1 mg IVP Q2M PRN PRN Reason: RESPIRATORY RATE < 8/MIN Nitroglycerin (Nitrostat) 0.4 mg SUBLINGUAL Q5M PRN PRN Reason: CHEST PAIN Non-Formulary Medication (Vitamin D3 [place]) see rx instructions % XX .COMPLEX [facility] Ondansetron HCl (Zofran) 4 mg IVP Q8H PRN PRN Reason: vomiting, or N/V if npo Last Admin: 06/06/20 21:54 Dose: 4 mg Documented by: Pantoprazole Sodium (Protonix) 40 mg PO DAILY [facility] Last Admin: 06/07/20 10:33 Dose: 40 mg Documented by: Pyridoxine HCl (Vitamin B-6) 50 mg PO DAILY [facility] Last Admin: 06/07/20 09:59 Dose: 50 mg Documented by: Trazodone HCl (Desyrel) 50 mg PO BEDTIME [facility] Last Admin: 06/06/20 21:59 Dose: 50 mg Documented by: Vitals/I&O/Wt Last Vital Signs Temp 98.0 F 06/07/20 08:00 Pulse 57 L 06/07/20 08:00 Resp 16 06/07/20 08:00 BP 96/66 06/07/20 08:00 Pulse Ox 96 06/07/20 08:00 06/06/20 06/07/20 06/07/20 22:59 06:59 14:59 Intake Total 1191.25 / 1191.25 50 / 1241.25 245 / 245 Balance 1191.25 / 1191.25 50 / 1241.25 245 / 245 Weight last 48 hrs Weight 142 lb 3.2 oz Physical Exam Narrative: EXAM NARRATIVE: GENERAL: The patient is alert and oriented times three. Not in any acute distress. HEENT: No significant pallor, icterus or lymphadenopathy. NECK: Trachea appears to be central. No masses noted. No JVD or thyromegaly appreciated. No carotid bruit. RESPIRATORY: The breath sounds are heard bilaterally l with no rales or rhonchi. Pacemaker site has no hematoma or bleeding. BREASTS: Deferred. HEART: Heart sounds are normal no S3 or S4. No significant murmurs. ABDOMEN: No vessel pulsations or distention. No tenderness. No organomegaly appreciated. No abdominal bruit. Bowel sounds are normally heard. : Deferred. RECTAL: Deferred. LYMPHATIC: No lymphadenopathy noted in the neck or groin. EXTREMITIES: No edema or cyanosis. No clubbing. The pulses are symmetrical bilaterally. The radial, femoral, dorsalis pedis and the posterior tibial pulses are palpated and found to be in good volume and amplitude. MUSCULOSKELETAL: No acute joint deformities or swelling SKIN: There are no significant scars or skin rash noted. NEUROPSYCHIATRIC: The patient is alert and oriented x3. Appears to be in a good mood. The higher functions are grossly within normal limits. No tremors or rigidity noted. Const: COMMON NORMALS: alert Resp: COMMON NORMALS: clear to auscultation bilaterally AUSCULTATION: clear to auscultation bilaterally Neuro: SENSORIUM/ORIENTATION: Yes alert Data : 06/06/20 04:09 06/06/20 04:09 A&P Assessment and plan (1) Pre-syncope: Clinical features are consistent with sinus mat dysfunction with vasovagal reaction. She seems to have both cardioinhibitory and vasodepressor type of reaction. She also seems to have some chronotropic incompetence. Patient underwent the permanent pacemaker plantation yesterday. Pacer function appears to be appropriate. Status: Acute (2) Sinus bradycardia: The pacemaker is programmed for lower rate of 50 and upper rate of 130 Status: Acute (3) Hypertension: Currently the blood pressure is within normal limits. May continue on the current medications. Status: Acute Qualifiers: Hypertension type: essential hypertension Qualified Code(s): I10 - Essential (primary) hypertension (4) GERD (gastroesophageal reflux disease): May continue on the current medications. Status: Acute Qualifiers: Esophagitis presence: without esophagitis Qualified Code(s): K21.9 - Gastro-esophageal reflux disease without esophagitis (5) Hypothyroidism: Clinically appears euthyroid. May continue other medications. Status: Acute Qualifiers: Hypothyroidism type: acquired Qualified Code(s): E03.9 - Hypothyroidism, unspecified Additional A&P Information If the patient continues remain stable, may be discharged home from a cardiac standpoint after the IV antibiotic dose are finished. She need to be on Keflex 500 mg p.o. every 6 hours for 5 days with a multivitamin 1 tab daily for 2 weeks Attestations Medical Necessity Statement*: Possible discharge home today Coding Level of Care Code Acute National Account Director for Chg Fwd Exam Expanded Problem Focused Diagnoses Pre-syncope R55 Sinus bradycardia R00.1 Hypertension I10 Hypertension type: essential hypertension GERD (gastroesophageal reflux disease) K21.9 Esophagitis presence: without esophagitis Hypothyroidism E03.9 Hypothyroidism type: acquired
--- NOTE | 2020-06-07 11:42 | PC.NURSE ---
Med related Dr. Raya called and informed that pt will need to be on Keflex for post pacemaker. However Dr. Rick put an order for amoxicillin. Dr. Raya wants to verify it to him and prefers the Keflex instead. Talked to Dr. Rick and he said pt has a lymes/tick dse which amoxicillin will cover both the tick borne and prevent surgical site infection on her pacemaker. discuss to Dr. Raya regarding Dr. Rick's side. And Dr. Raya is okay with what Dr. Rick prescribed.
[2020-06-07 12:22] LABS: COMPLEMENT, TOTAL (CH50) >60 U/mL (31-60)
[2020-06-07 12:46] LABS: COMPLEMENT COMPONENT C3C 134 mg/dL (83-193); COMPLEMENT COMPONENT C4C 27 mg/dL (15-57)
--- NOTE | 2020-06-07 14:29 | PC.NURSE ---
Called Pharmacy Told pt that we can deliver her medication at bedside from [facility]. Pt agreed and she said, It is okay so I can't missed it. Talked to employee pharmacy and notified them that the sent her Rx to [facility] already. They will get ahold of the [facility].
--- NOTE | 2020-06-07 18:11 | PC.NURSE ---
Discharge to home with caregiver Instructed pt to follow-up with her pcp and health care analyst as discussed. Discuss her new med dosing, timing, duration. Post pacemaker and post angiogram home care instructions discuss to pt. Discharge papers provided to pt. ushered pt via wheelchair.
[2020-06-08 17:32] LABS: RMSF IGG NOT DETECTED; RMSF IGM NOT DETECTED
[2020-06-08 21:26] LABS: E. Chaffeensis AB IGG <1:64; E. Chaffeensis AB IGM <1:20
[2020-06-10 02:37] LABS: DNA AB (DS) CRITHIDIA,IFA NEGATIVE (NEGATIVE)
[2020-06-10 12:43] LABS: THYROID PEROXIDASE ANTIBODIES 90 IU/mL (<9)
[2020-06-11 09:53] LABS: ANA PATTERN Nuclear, Speckled; ANA SCREEN, IFA POSITIVE (NEGATIVE)
[2020-06-11 16:03] LABS: CENTROMERE B ANTIBODY <1.0 NEG AI (<1.0 NEG); JO-1 ANTIBODY <1.0 NEG AI (<1.0 NEG); RNP ANTIBODY <1.0 NEG AI (<1.0 NEG); SCL-70 ANTIBODY <1.0 NEG AI (<1.0 NEG); SJOGREN'S ANTIBODY (SS-A) <1.0 NEG AI (<1.0 NEG); SM ANTIBODY <1.0 NEG AI (<1.0 NEG)
== END 2020-06-07 18:10 | disposition home or self-care (01) | DRG 244 ==
LOC: ER 14:00 → CSU 14:45
PROVIDERS: Emergency Medicine; Internal Medicine; Internal Medicine Cardiovascular Disease; Admitting Provider Family Medicine; PCP Family Medicine; Visit Provider Family Medicine
PROC: 4A023N7 Measurement of Cardiac Sampling and Pressure, Left Heart, Percutaneous Approach (ICD-10-PCS; principal; 2020-06-04 16:30)
PROC: 0JH606Z Insertion of Pacemaker, Dual Chamber into Chest Subcutaneous Tissue and Fascia, Open Approach (ICD-10-PCS; principal; 2020-06-06 16:30)
DX: R00.1 Bradycardia, unspecified (principal); R55 Syncope and collapse; K21.9 Gastro-esophageal reflux disease without esophagitis; I10 Essential (primary) hypertension; E03.9 Hypothyroidism, unspecified; R73.03 Prediabetes; K44.9 Diaphragmatic hernia without obstruction or gangrene; R53.83 Other fatigue; W57.XXXA Bitten or stung by nonvenomous insect and other nonvenomous arthropods, initial encounter; R60.9 Edema, unspecified; Z82.49 Family history of ischemic heart disease and other diseases of the circulatory system; Z79.890 Hormone replacement therapy
CPT/HCPCS: 12345; 33208; 36415; 36416; 71045; 80051; 80053; 80061; 81003; 82810; 82962; 83036; 83605; 83735; 83880; 83986; 84100; 84145; 84443; 84484; 85014; 85018; 85025; 85378; 85651; 86140; 86431; 86617; 86618; 86666; 86757; 87426; 93005; 93452; 93880; 93970; 96372; 96375; 97161; 97165; 99283; C1769; C1779; C1786; C1887; C1894; G0378; J0461; J0690; J0696; J1265; J1644; J1650; J2250; J2405; J3010; J3490; J7030; J7050; J8499; Q0163; Q9967

== ENCOUNTER 2020-06-12 11:18 | Outpatient (CLI) | payer BC, SELFPAY ==
--- NOTE | 2020-06-12 11:25 | XRR_ITS ---
PROCEDURE INFORMATION: Exam: XR Chest, 2 Views Exam date and time: 06/12/2020 11:48 AM Age: 60 years old Clinical indication: Condition or disease; Other: Pacemaker follow up; Prior surgery; Surgery type: Pacemaker placement; Additional info: Post pacemaker - check lead placement TECHNIQUE: Imaging protocol: XR of the chest Views: 2 views. COMPARISON: CR XR chest 1V portable [id number] 06/07/2020 9:25 AM FINDINGS: Lungs: Unremarkable. No consolidation. Pleural space: Unremarkable. No pleural effusion. No pneumothorax. Heart/Mediastinum: Unremarkable. No cardiomegaly. Bones/joints: Unremarkable. Soft tissues: Cardiac pacemaker left anterior chest. The leads appear well positioned and stable since prior examination. XR/XR chest 2V* [id number] IMPRESSION: 1. No acute findings. 2. Left chest cardiac pacemaker leads are in good position
== END 2020-06-12 11:19 | disposition home or self-care (01) ==
LOC: RAD 11:22
PROVIDERS: PCP Family Medicine; Visit Provider Nurse Practitioner Family
DX: Z95.0 Presence of cardiac pacemaker (principal)
CPT/HCPCS: 71046

== ENCOUNTER 2020-06-18 11:50 | Observation (INO) | payer BC, SELFPAY ==
[2020-06-18] VITALS (8 sets, daily range): BP systolic 113–151; BP diastolic 56–93; PULSE 50–66; RESP 17–19; TEMP 36.6–36.9; O2SAT 97–100; BMI 23.9
--- NOTE | 2020-06-18 11:57 | XRR_ITS ---
PROCEDURE INFORMATION: Exam: XR Chest, 1 View Exam date and time: 06/18/2020 11:59 AM Age: 60 years old Clinical indication: Other: Weakness TECHNIQUE: Imaging protocol: XR of the chest Views: 1 view. COMPARISON: CR XR chest 2V* [id number] 06/12/2020 11:48 AM FINDINGS: Lungs: Lungs are well aerated without a focal area of consolidation. Pleural space: Unremarkable. No pleural effusion. No pneumothorax. Heart/Mediastinum: Unremarkable. No cardiomegaly. Vasculature: Pacemaker is present via a left subclavian approach. Bones/joints: Unremarkable. XR/XR chest 1V portable [id number] IMPRESSION: Lungs are well aerated without a focal area of consolidation.
--- NOTE | 2020-06-18 11:58 | ECG_ITS ---
[facility] Test Date: 2020-06-18 Pat Name: Ceci Manning Department: Room: Gender: Female [employer] D[employer]: : 1960 Requested By: Eboni Das Order Number: [id number] Okeefe MD: Jessica Hand M.D. Measurements Intervals [place] Rate: 52 P: 52 WI: 149 QRS: -19 QRSD: 98 T: 14 QT: 471 QTc: 441 Interpretive Statements SINUS BRADYCARDIA SEPTAL MYOCARDIAL INFARCTION , OF INDETERMINATE AGE [40+ ms Q WAVE IN V1/V2] Compared to ECG 06/07/2020 05:44:06 Myocardial infarct finding now present Atrial-paced complex(es) or rhythm no longer present Electronically Signed On 06-18-2020 17:06:08 CDT by Jessica Hand M.D. [id number]
[2020-06-18 12:33] LABS: Basophils # 0.1 10^3/uL (0.0-0.1); Basophils % 0.7 %; Eosinophils # 0.1 10^3/uL (0.0-0.8); Eosinophils % 0.9 %; Hematocrit 44.2 % (37.0-47.0); Hemoglobin 14.3 g/dL (11.5-15.3); Lymphocytes # 2.8 10^3/uL (0.8-4.8); Lymphocytes % 34.3 %; Mean Corpuscular HGB Conc 32.4 g/dL (30.0-36.0); Mean Corpuscular Hemoglobin 29.5 pg (28.0-34.0); Mean Corpuscular Volume 91.1 fL (81-99); Mean Platelet Volume 11.7 fL (7.4-10.4); Monocytes # 0.5 10^3/uL (0.2-0.9); Neutrophils # 4.69 10^3/uL (1.8-7.7); Nucleated Red Blood Cells % 0 %; Platelet Count 282 10^3/cmm (130-400); Red Blood Count 4.85 10^6/uL (4.1-5.3); Red Cell Distribution Width 12.3 % (12.1-15.1); White Blood Count 8.1 10^3/uL (4.0-10.0)
[2020-06-18 12:43] LABS: INR 0.86 (0.8-1.2)
[2020-06-18 12:48] LABS: Lactic Sepsis W/Reflex 2.7 mmol/L (0.5-2.2)
[2020-06-18 12:55] LABS: Ketone (Acetest) Serum Negative (Negative)
[2020-06-18 13:01] LABS: Troponin(5th) Baseline 8 ng/L (0-10)
[2020-06-18 13:11] LABS: Alanine Aminotransferase 16 U/L (0-33); Albumin Level 4.4 g/dL (3.5-5.2); Alkaline Phosphatase 79 IU/L (35-105); Aspartate Amino Transferase 27 U/L (0-32); Blood Urea Nitrogen 19 mg/dL (6-20); Calcium 10.4 mg/dL (8.5-10.5); Carbon Dioxide 23 mmol/L (22-29); Chloride 98 mmol/L (98-107); Creatine Phosphokinase 76 U/L (26-192); Globulin 3.4 g/dL (1.3-4.6); Glomerular Filtration Rate 85.9 mL/min (90-130); Glucose 118 mg/dL (65-115); Lipase 56 U/L (13-60); Magnesium 2.3 mg/dL (1.7-2.3); NT Pro B Type Natriuretic Pept 203 pg/mL (0-125); Osmolality Calculated 282 mOsm/kg (285-295); Sodium 137 mmol/L (136-145); Thyroid Stimulating Hormone 1.71 uIU/mL (0.27-4.20); Total Bilirubin 0.4 mg/dL (0.15-1.2); Total Protein 7.8 g/dL (6.6-8.7)
[2020-06-18 13:13] LABS: Anion Gap 20.4 (5-19); Potassium 4.4 mmol/L (3.5-5.1)
--- NOTE | 2020-06-18 13:44 | W.ED.DIZZY ---
HPI - Dizziness General: Chief Complaint: Dizziness Stated Complaint: NAUSEA WEAKNESS AND TINGLING Time Seen by Provider: 06/18/20 11:51 Source: patient and family Mode of arrival: ambulatory Limitations: no limitations History of Present Illness: HPI Narrative: Ceci is a very nice 60-year-old female who comes in complaining of feeling weak all over and having tingling in her hands and feet. EMS noted the patient was hyperventilating upon their arrival. Patient states that her symptoms started today while she was out watering [place] in her garden. She had some nauseousness but did not vomit. She denies any chest pain or shortness of breath but said she can feel her heart beating forcefully. The patient had similar symptoms in the past secondary to her heart and she is had a pacemaker placed. Patient did have an adjustment to her pacemaker last Wednesday secondary to she could feel her heart being stimulated by this and adjustments had been made but she had not noticed symptoms until today. She denies any fevers or chills, she has any chest pain or shortness of breath. Patient is supposed to see Dr. Raya later today for this but she did not feel that she could wait until then. Associated symptoms: Reports nausea and palpitations; Denies change in hearing, chest pain, chills, diaphoresis, ear discharge, headache(s), malaise, syncope or vomiting Associated neuro symptoms: Deny confusion or numbness in extremities Review of Systems Const: Reports: fatigue; Denies: fever(s), chills, body aches, malaise or diaphoresis Eyes: Denies: change in vision, blurry vision, photophobia, eye discomfort, eye discharge or eye redness ENMT: Denies: throat pain, odynophagia, hoarseness, swelling of lips/tongue, ear or mastoid pain, ear discharge, change in hearing or nasal discharge Card: Reports: palpitations and pre-syncope; Denies: chest pain, irregular heart rhythm, edema, syncope, dyspnea on exertion or orthopnea Resp: Denies: dyspnea, productive cough, non-productive cough, wheezing, hemoptysis or chest congestion GI: Reports: nausea; Denies: abdominal pain, vomiting, hematemesis, coffee ground emesis, heartburn, diarrhea, constipation, GI cramping, hematochezia or melena : Denies: flank pain, dysuria, urinary frequency, urinary urgency or hematuria Musc: Denies: neck pain, back pain, extremity pain, extremity swelling, joint pain, joint swelling, joint redness, joint warmth or joint stiffness Skin/Breast: Denies: rash, pruritus, erythema or skin tenderness Neuro: Denies: headache(s), numbness in extremities, weakness in extremities, sensory changes, lack of coordination, difficulty walking, dizziness, vertigo, confusion, Slurred speech present or seizure-like activity Massimo/Lymph: Denies: easy bruising, easy bleeding, petechiae, purpura or enlarged lymph nodes All/Imm: Denies: urticaria, throat swelling, tongue swelling, facial swelling or acute wheezing PFSH ED PFSH: Medical History Atypical chest pain Borderline diabetes Fracture of lower extremity GERD (gastroesophageal reflux disease) Hiatal hernia Hypertension Hypothyroidism Migraine headache Pacemaker Rectal fistula Sinus node dysfunction Surgical History H/O hysterectomy with oophorectomy Hx laparoscopic cholecystectomy Family History Mother Cancer Multiple myeloma CAD (coronary artery disease) Atrial fibrillation Stroke Father Cancer Prostate cancer, metastatic CAD (coronary artery disease) Had myocardial infarction Brother CAD (coronary artery disease) Atrial fibrillation Social History Smoking and tobacco status: never smoked Alcohol intake: never Household members: spouse Physical Exam Const: COMMON NORMALS: no acute distress, patient oriented x3, no limitations, healthy appearing and well nourished GENERAL APPEARANCE: cooperative, well kempt and well developed HENMT: COMMON NORMALS: normocephalic, atraumatic, external ears normal, EAC's normal and Normal external nose present HEAD & SCALP: normal to inspection, normocephalic and atraumatic FACE & SINUS: normal facial exam and face symmetric NOSE: Normal external nose present and Normal nares present EXTERNAL EAR: Yes external ears normal EXTERNAL AUDITORY CANAL: EAC's normal MOUTH: Normal oral and palatal mucosa present, lip normal and tongue normal Eye: COMMON NORMALS: Equal, round and reactive pupils present and conjunctivae normal GENERAL EYE: appearance normal, both eyes and all related structures ALIGNMENT: Yes alignment normal PERIORBITAL: periorbital findings normal EYELID: eyelids normal CONJUNCTIVA: Yes conjunctivae normal SCLERA: sclerae normal PUPIL: Yes Equal, round and reactive pupils present Neck/C-Spine: COMMON NORMALS: full ROM, no lymphadenopathy, supple, no meningeal signs and no JVD GENERAL: Yes normal visual inspection and Yes trachea midline Chest: COMMONS NORMALS: normal inspection of the chest and normal palpation of entire chest wall Resp: COMMON NORMALS: normal respiratory effort, No retractions, No use of accessory muscles and clear to auscultation bilaterally EFFORT & INSPECTION: Yes able to speak in complete sentences and Yes symmetric chest movement AUSCULTATION: clear to auscultation bilaterally, no crackles, no rales, no rhonchi and no wheezes Cardio: COMMON NORMALS: no JVD, regular rate, regular rhythm, S1 normal heart sound present and S2 normal heart sound present RATE: regular rate RHYTHM: regular rhythm HEART SOUNDS: S1 normal heart sound present, S2 normal heart sound present, no click, no gallops, no murmurs, no rubs and abnormal split S2 GI: COMMON NORMALS: Soft to palpation and No hepatosplenomegaly present PALPATION: Yes Soft to palpation, No Tenderness to palpation present (GI), No Guarding due to palpation present (GI), No Rigid due to palpation, Yes No hepatosplenomegaly present, No Hernia present, No Palpable mass present and No Pulsatile mass present : COMMON NORMALS: Yes no CVA tenderness BLADDER/KIDNEY EXAM: Yes no CVA tenderness EXTERNAL FEMALE EXAM: No Hernia present Back/Pelvis: COMMON NORMALS: no CVA tenderness, thoracic and lumbar spine normal to inspection, no thoracic nor lumbar tenderness and thoraco-lumbar ROM normal Extremity: COMMON NORMALS: normal to inspection, full ROM, capillary refill normal, no joint enlargement, no clubbing, cyanosis or edema and no calf tenderness Neuro: COMMON NORMALS: patient oriented x3, CN's II-XII intact bilaterally, moves all extremities, no focal motor deficits and no sensory deficits noted MENINGEAL SIGNS: Yes no meningeal signs SPEECH: speech normal Psych: COMMON NORMALS: mental status grossly normal, Normal thought process present, cooperative, normal affect, speech normal and activity/motor behavior normal APPEARANCE: Yes well kempt SPEECH: Yes normal speech THOUGHT PROCESS: Normal thought process present Skin: COMMON NORMALS: no rashes or lesions noted, turgor normal, no jaundice, no petechiae and no mottling GENERAL SKIN EXAM: no rashes or lesions noted and turgor normal Course Vital Signs: Vital signs: Vital Signs Temperature 97.9 F 06/18/20 12:02 Pulse Rate 58 L 06/18/20 15:20 Respiratory Rate 18 06/18/20 15:27 Blood Pressure 134/68 06/18/20 15:20 Pulse Oximetry 97 06/18/20 15:27 MDM - Dizziness MDM Narrative: Medical decision making narrative: The patient symptoms are vague but continue here in the ER. The patient had a positive delta but not enough to rule in for acute coronary syndrome but high enough that we cannot rule her out. The case was reviewed with Dr. Monteiro and Elver, they will admit and consult respectively. [id number] -there had been miscommunication within the emergency department and Dr. Raya felt the patient can likely go home from his perspective. Her pacemaker interrogation was normal and with her recent negative heart cath he felt she can be discharged. It is unclear where the miscommunication came from but ultimately the patient was admitted to the hospital. Urinalysis and repeat lactic were pending. I reviewed the case with Dr. Rick as Dr. Monteiro was under the impression the patient would be going home. Dr. Clark is he will review all of her labs and also the repeat lactate and urine and act accordingly. Lab Data: Attestation: I reviewed the patient's lab results. Labs: Lab Results 06/18/20 06/18/20 06/18/20 Range/Units 11:30 11:30 11:30 WBC (4.0-10.0) 10^3/ uL RBC (4.1-5.3) 10^6/u L Hgb (11.5-15.3) g/dL Hct (37.0-47.0) % MCV (81-99) fL MCH (28.0-34.0) pg MCHC (30.0-36.0) g/dL RDW (12.1-15.1) % Plt Count (130-400) 10^3/c mm MPV (7.4-10.4) fL Neut % (Auto) % Lymph % (Auto) % Crisp % (Auto) % Eos % (Auto) % Baso % (Auto) % Neut # (Auto) (1.8-7.7) 10^3/u L Lymph # (Auto) (0.8-4.8) 10^3/u L Crisp # (Auto) (0.2-0.9) 10^3/u L Eos # (Auto) (0.0-0.8) 10^3/u L Baso # (Auto) (0.0-0.1) 10^3/u L Nucleated RBC % (a uto) % Nucleated RBCs # /100WBC PT 11.90 L (12.1-14.9) SECO NDS INR 0.86 (0.8-1.2) Sodium 137 (136-145) mmol/L Potassium 4.4 (3.5-5.1) mmol/L Chloride 98 (98-107) mmol/L Carbon Dioxide 23 (22-29) mmol/L Anion Gap 20.4 H (5-19) BUN 19 (6-20) mg/dL Creatinine 0.7 (0.5-0.9) mg/dL GFR Calculation 85.9 L (90-130) mL/min Glucose 118 H (65-115) mg/dL Calculated Osmolal ity 282 L (285-295) mOsm/k g Lactic Acid (0.5-2.2) mmol/L Calcium 10.4 (8.5-10.5) mg/dL Magnesium 2.3 (1.7-2.3) mg/dL Total Bilirubin 0.4 (0.15-1.2) mg/dL AST 27 (0-32) U/L ALT 16 (0-33) U/L Alkaline Phosphata se 79 (35-105) IU/L Creatine Kinase 76 (26-192) U/L Troponin T Baselin e 8 (0-10) ng/L Troponin T 120 Min [place] (0-10) ng/L Delta Troponin T (0-10) ABS# NT-Pro-B Natriuret Pep 203 H (0-125) pg/mL Total Protein 7.8 (6.6-8.7) g/dL Albumin 4.4 (3.5-5.2) g/dL Globulin 3.4 (1.3-4.6) g/dL Lipase 56 (13-60) U/L TSH 1.71 (0.27-4.20) uIU/ mL Free T4 1.90 H (0.82-1.77) ng/d L Serum Ketones Negative (Negative) 06/18/20 06/18/20 06/18/20 Range/Units 12:20 12:20 13:40 WBC 8.1 (4.0-10.0) 10^3/ uL RBC 4.85 (4.1-5.3) 10^6/u L Hgb 14.3 (11.5-15.3) g/dL Hct 44.2 (37.0-47.0) % MCV 91.1 (81-99) fL MCH 29.5 (28.0-34.0) pg MCHC 32.4 (30.0-36.0) g/dL RDW 12.3 (12.1-15.1) % Plt Count 282 (130-400) 10^3/c mm MPV 11.7 H (7.4-10.4) fL Neut % (Auto) 58.0 % Lymph % (Auto) 34.3 % Crisp % (Auto) 6.0 % Eos % (Auto) 0.9 % Baso % (Auto) 0.7 % Neut # (Auto) 4.69 (1.8-7.7) 10^3/u L Lymph # (Auto) 2.8 (0.8-4.8) 10^3/u L Crisp # (Auto) 0.5 (0.2-0.9) 10^3/u L Eos # (Auto) 0.1 (0.0-0.8) 10^3/u L Baso # (Auto) 0.1 (0.0-0.1) 10^3/u L Nucleated RBC % (a uto) 0 % Nucleated RBCs # 0.0 /100WBC PT (12.1-14.9) SECO NDS INR (0.8-1.2) Sodium (136-145) mmol/L Potassium (3.5-5.1) mmol/L Chloride (98-107) mmol/L Carbon Dioxide (22-29) mmol/L Anion Gap (5-19) BUN (6-20) mg/dL Creatinine (0.5-0.9) mg/dL GFR Calculation (90-130) mL/min Glucose (65-115) mg/dL Calculated Osmolal ity (285-295) mOsm/k g Lactic Acid 2.7 H (0.5-2.2) mmol/L Calcium (8.5-10.5) mg/dL Magnesium (1.7-2.3) mg/dL Total Bilirubin (0.15-1.2) mg/dL AST (0-32) U/L ALT (0-33) U/L Alkaline Phosphata se (35-105) IU/L Creatine Kinase (26-192) U/L Troponin T Baselin e (0-10) ng/L Troponin T 120 Min [place] 12.95 H (0-10) ng/L Delta Troponin T 4.95 (0-10) ABS# NT-Pro-B Natriuret Pep (0-125) pg/mL Total Protein (6.6-8.7) g/dL Albumin (3.5-5.2) g/dL Globulin (1.3-4.6) g/dL Lipase (13-60) U/L TSH (0.27-4.20) uIU/ mL Free T4 (0.82-1.77) ng/d L Serum Ketones (Negative) Imaging Data^: CXR: Attestation: I personally reviewed and interpreted this imaging study as follows: My impression: No acute cardiopulmonary findings. Pacemaker with appropriate placement. EKG Data^: EKG 1: Attestation: I personally reviewed and interpreted this EKG as follows: EKG interpretation date: 06/18/20 EKG interpretation time: 12:57 Interpretation: Normal sinus rhythm at 52 beats a minute, nonspecific T wave findings in the anterior precordial leads, otherwise no acute findings. EKG 2: Attestation: I personally reviewed and interpreted this EKG as follows: EKG interpretation date: 06/18/20 EKG interpretation time: 14:47 Interpretation: Sinus bradycardia 52 beats a minute, nonspecific ST-T wave changes, consistent with previous Discharge Plan Discharge Patient Disposition: Placed in Observation Admit Provider: Cyril Monteiro Clinical Impression: Near syncope, Elevation of cardiac enzymes Discharge Date/Time: 06/18/20 15:22 Coding Level of Care Code ED Assorter for Chg Fwd Exam Comprehensive
--- NOTE | 2020-06-18 13:58 | ECG_ITS ---
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 Measurements Intervals [place] Rate: 52 P: 54 ME: 145 QRS: -21 QRSD: 104 T: 10 QT: 459 QTc: 430 Interpretive Statements SINUS BRADYCARDIA BORDERLINE LEFT AXIS DEVIATION [QRS AXIS < -20] Compared to ECG 06/18/2020 12:57:28 Myocardial infarct finding no longer present Electronically Signed On 06-18-2020 17:36:13 CDT by Jessica Hand M.D. [email or web address]
[2020-06-18 14:08] LABS: Troponin 5 2HR 12.95 ng/L (0-10); Troponin 5 2HR Delta 4.95 ABS# (0-10)
[2020-06-18 14:15] LABS: Reflex Lactate Order REFLEX LACTIC ORDERD
[2020-06-18] MEDS: morphine 4 mg/mL SDV 1 mL 2 MG IVP (15:27)
[2020-06-18] MEDS: ondansetron 2 mg/ML SDV 2 mL 4 MG IVP (15:30)
[2020-06-18 15:42] LABS: Lactic Acid level (Lactate) 1.6 mmol/L (0.5-2.2)
--- NOTE | 2020-06-18 15:45 | PC.NURSE ---
Addendum entered by Sylvia Grant 06/18/20 16:21: pt arrived from ER with fluids running per ordered. Original Note: pt arrived from er via wheelchair. pt ambulated to bed. pt hooked up to monitor. call light within reach, will continue to monitor.
--- NOTE | 2020-06-18 16:15 | PC.NURSE ---
in room at this time. pt resting in bed having conversation with him. supplies for clean catch urine sample placed in room. pt educated on how to use the supplies when she has to void next time. physical assessment complete at this time. will continue to monitor.
--- NOTE | 2020-06-18 16:40 | PM.CONSULT ---
Providers/Reason For Consult Consulting Physican/Specialty*: Cardiology Reason for Consult*: Patient with the dizziness/near syncope. Recent pacemaker implantation Attending Physician: Crispin Rick MD Primary Care Provider: Acosta Wild DO History of Present Illness History of Present Illness Ceci Manning is a 60 year old female presents with complaints of abdominal discomfort/nausea slight dizziness and near syncopal episodes. Patient has been having similar episodes for the last few months. During the previous admissions, she was found to be hypotensive and bradycardic with the spells. Her heart rate was running in the upper 30s and low 40s with these episodes. She had features of vasovagal syncope. She also had features of sinus mat dysfunction. For further management of her condition, she had a permanent dual-chamber pacemaker plantation. The drop rate function of the pacemaker was turned on. On last Wednesday, she had a pacemaker interrogation in the office. Apparently she was found to be very symptomatic with the ventricular pacing. For that reason, the drop rate function was turned off. According the patient, even though she may not have much symptoms with the ventricular pacing, she continues to have the symptoms similar to what she had prior to the pacemaker implantation. She has this abdominal discomfort followed by nausea, generalized feeling of weakness, tingling and numbness of the extremities, dizziness and near syncopal episodes. She was found to have normal blood pressure and heart rate in the emergency room. Even with sitting up in the bed in the emergency room, she was found to be symptomatic with stable vitals. She is admitted to hospital for further evaluation and management. Her pacemaker was interrogated in the emergency room. She has a high pacing threshold in the right ventricular lead. The pacing threshold was found to be 2.25 V at 1.0 ms. The pacing threshold was 0.75 V at 0.4 ms at the time of implantation. The chest x-ray revealed the pacemaker leads in the appropriate position with no evidence of lead dislodgment. Patient also has been taking antibiotics for the possible tick fever. The pacemaker site appears to be healing well with no evidence of any infection or inflammation. Review of Systems Narrative: CONSTITUTIONAL: No fever or chills. EYES: No blurring of vision or other visual disturbances lately. ENT: No hoarseness of voice, auditory disturbances or sore throat. CARDIOVASCULAR: As mentioned above. RESPIRATORY: No significant cough. GASTROINTESTINAL: Nausea and abdominal discomfort as mentioned above GENITOURINARY: No dysuria or hematuria. INTEGUMENTARY: No skin rashes or history of skin cancer. NEURO: Dizziness, tingling and numbness of the extremities as mentioned above PSYCHIATRIC: No history of psychosis or major depression. HEMATOLOGIC: No bleeding disorders or significant anemia. ENDOCRINE: No history of polyuria or polydipsia. MUSCULOSKELETAL: No recent joint pain or swelling. ALLERGY/IMMUNOLOGY: As mentioned above. Meds/Allergies Home Medications and Allergies Home Medications Medication Instructions Recorded Confirmed Last Taken Type diazepam 2 - 4 mg PO BID PRN 05/07/20 06/18/20 06/01/20 History estradiol 0.5 mg PO DAILY 05/07/20 06/18/20 06/18/20 History levothyroxine 125 mcg PO DAILY 05/07/20 06/18/20 06/18/20 History trazodone 100 mg PO BEDTIME 05/07/20 06/18/20 06/17/20 History omeprazole 40 mg PO DAILY #30 cap 05/08/20 06/18/20 06/18/20 Rx Vitamin B-12 See Rx Instructions .ROUTE .COMPLEX 06/03/20 06/18/20 06/18/20 History Vitamin B-6 1 tab PO DAILY 06/03/20 06/18/20 06/18/20 History Vitamin D3 [place] See Rx Instructions .ROUTE .COMPLEX 06/03/20 06/18/20 Unknown History acetaminophen [Tylenol Extra 1,000 mg PO BEDTIME 06/03/20 06/18/20 06/17/20 History Strength] meloxicam 15 mg PO BEDTIME 06/05/20 06/18/20 06/17/20 History amoxicillin 500 mg PO TID 06/18/20 06/18/20 06/18/20 08:00 History hydrochlorothiazide 12.5 mg PO DAILY 06/18/20 06/18/20 06/18/20 History lisinopril 10 mg PO DAILY 06/18/20 06/18/20 06/18/20 History Allergies Allergy/AdvReac Type Severity Reaction Status Date / Time meperidine [From Demerol] Allergy ADR-Halluci Verified 06/18/20 13:29 nating Sulfa (Sulfonamide Allergy ALGY-Swell Verified 06/18/20 13:29 Antibiotics) Lip/Tongue/Throat Current Medications Current Medications Generic Name Dose Route Start Last Admin Trade Name Freq PRN Reason Stop Dose Admin Morphine Sulfate 2 mg 06/18/20 14:23 06/18/20 15:27 Morphine IVP 2 mg Q4H PRN Administration SEVERE PAIN PFSH Acute PFSH: Medical History Atypical chest pain Borderline diabetes Fracture of lower extremity GERD (gastroesophageal reflux disease) Hiatal hernia Hypertension Hypothyroidism Migraine headache Pacemaker Rectal fistula Sinus node dysfunction Surgical History H/O hysterectomy with oophorectomy Hx laparoscopic cholecystectomy Family History Mother Cancer Multiple myeloma CAD (coronary artery disease) Atrial fibrillation Stroke Father Cancer Prostate cancer, metastatic CAD (coronary artery disease) Had myocardial infarction Brother CAD (coronary artery disease) Atrial fibrillation Social History Smoking and tobacco status: never smoked Alcohol intake: never Household members: spouse Vitals/I&O/Wt Last Vital Signs Temp 98.4 F 06/18/20 15:47 Pulse 51 L 06/18/20 16:30 Resp 17 06/18/20 15:47 BP 116/56 06/18/20 16:30 Pulse Ox 100 06/18/20 15:47 Weight last 48 hrs Weight 135 lb Physical Exam Narrative: EXAM NARRATIVE: GENERAL: The patient is alert and oriented times three. Not in any acute distress. HEENT: No significant pallor, icterus or lymphadenopathy.Oral cavity: There are no mucous membrane lesions. NECK: Trachea appears to be central. No masses noted. No JVD or thyromegaly appreciated. RESPIRATORY: Chest is symmetrical. No intercostals muscle retraction or any accessory muscle activation. There is no chest wall tenderness. Breath sounds are heard bilaterally. No rales or rhonchi heard. No evidence of any consolidation. The pacemaker site has no hematoma or bleeding. BREASTS: Deferred. HEART: The heart sounds are normal. No S3 or S4. No significant murmurs. No pericardial rub ABDOMEN: No vessel pulsations or distention. No tenderness. No organomegaly appreciated. Bowel sounds are normally heard. : Deferred. RECTAL: Deferred. LYMPHATIC: No lymphadenopathy noted in the neck or groin. EXTREMITIES: No edema or cyanosis. No clubbing. Peripheral pulses are palpated in fairly good volume and amplitude MUSCULOSKELETAL: No acute joint deformities or swelling SKIN: There are no significant rashes or ecchymosis NEUROPSYCHIATRIC: The patient is alert and oriented x3. Appears to be in a good mood. No tremors or rigidity noted. Data Labs: Other Labs: Laboratory Last Values WBC 8.1 10^3/uL (4.0- 10.0) 06/18/20 12:20 RBC 4.85 10^6/uL (4.1 -5.3) 06/18/20 12:20 Hgb 14.3 g/dL (11.5-1 5.3) 06/18/20 12:20 Hct 44.2 % (37.0-47.0 ) 06/18/20 12:20 MCV 91.1 fL (81-99) 06/18/20 12:20 MCH 29.5 pg (28.0-34. 0) 06/18/20 12:20 MCHC 32.4 g/dL (30.0-3 6.0) 06/18/20 12:20 RDW 12.3 % (12.1-15.1 ) 06/18/20 12:20 Plt Count 282 10^3/cmm (130 -400) 06/18/20 12:20 MPV 11.7 fL (7.4-10.4 ) H 06/18/20 12:20 Neut % (Auto) 58.0 % 06/18/20 12:20 Lymph % (Auto) 34.3 % 06/18/20 12:20 [place] % (Auto) 6.0 % 06/18/20 12:20 Eos % (Auto) 0.9 % 06/18/20 12:20 Baso % (Auto) 0.7 % 06/18/20 12:20 Neut # (Auto) 4.69 10^3/uL (1.8 -7.7) 06/18/20 12:20 Lymph # (Auto) 2.8 10^3/uL (0.8- 4.8) 06/18/20 12:20 [place] # (Auto) 0.5 10^3/uL (0.2- 0.9) 06/18/20 12:20 Eos # (Auto) 0.1 10^3/uL (0.0- 0.8) 06/18/20 12:20 Baso # (Auto) 0.1 10^3/uL (0.0- 0.1) 06/18/20 12:20 Nucleated RBC % (a uto) 0 % 06/18/20 12:20 Nucleated RBCs # 0.0 /100WBC 06/18/20 12:20 PT 11.90 SECONDS (12 .1-14.9) L 06/18/20 11:30 INR 0.86 (0.8-1.2) 06/18/20 11:30 Sodium 137 mmol/L (136-1 45) 06/18/20 11:30 Potassium 4.4 mmol/L (3.5-5 .1) 06/18/20 11:30 Chloride 98 mmol/L (98-107 ) 06/18/20 11:30 Carbon Dioxide 23 mmol/L (22-29) 06/18/20 11:30 Anion Gap 20.4 (5-19) H 06/18/20 11:30 BUN 19 mg/dL (6-20) 06/18/20 11:30 Creatinine 0.7 mg/dL (0.5-0. 9) 06/18/20 11:30 GFR Calculation 85.9 mL/min (90-1 30) L 06/18/20 11:30 Glucose 118 mg/dL (65-115 ) H 06/18/20 11:30 Calculated Osmolal ity 282 mOsm/kg (285- 295) L 06/18/20 11:30 Lactic Acid 2.7 mmol/L (0.5-2 .2) H 06/18/20 12:20 Lactic Acid (Sepsi s) 1.6 mmol/L (0.5-2 .2) 06/18/20 15:15 Calcium 10.4 mg/dL (8.5-1 0.5) 06/18/20 11:30 Magnesium 2.3 mg/dL (1.7-2. 3) 06/18/20 11:30 Total Bilirubin 0.4 mg/dL (0.15-1 .2) 06/18/20 11:30 AST 27 U/L (0-32) 06/18/20 11:30 ALT 16 U/L (0-33) 06/18/20 11:30 Alkaline Phosphata se 79 IU/L (35-105) 06/18/20 11:30 Creatine Kinase 76 U/L (26-192) 06/18/20 11:30 Troponin T Baselin e 8 ng/L (0-10) 06/18/20 11:30 Troponin T 120 Min [place] band 12.95 ng/L (0-10) H 06/18/20 13:40 Delta Troponin T 4.95 ABS# (0-10) 06/18/20 13:40 NT-Pro-B Natriuret Pep 203 pg/mL (0-125) H 06/18/20 11:30 Total Protein 7.8 g/dL (6.6-8.7 ) 06/18/20 11:30 Albumin 4.4 g/dL (3.5-5.2 ) 06/18/20 11:30 Globulin 3.4 g/dL (1.3-4.6 ) 06/18/20 11:30 Lipase 56 U/L (13-60) 06/18/20 11:30 TSH 1.71 uIU/mL (0.27 -4.20) 06/18/20 11:30 Free T4 1.90 ng/dL (0.82- 1.77) H 06/18/20 11:30 Serum Ketones Negative (Negati ve) 06/18/20 11:30 Micro: Micro: Microbiology 06/18/20 12:15 Blood Culture - Pr eliminary Blood SPECIMEN [facility] A&P Assessment and plan (1) Dizziness of unknown cause: Patient's episodes of dizziness, tingling and numbness and other associated symptoms are unexplained at this time. Her blood pressure and the heart rate seems to be appropriate. Vestibular dysfunction/hyperventilation/neurological abnormalities are considerations. Status: Acute (2) Pre-syncope: Patient has no evidence of any tachy arrhythmia on the pacemaker telemetry . No hypotension based on the blood pressure recordings in the emergency room. Most likely he may have a noncardiac etiology for the symptoms. Status: Acute (3) Sinus node dysfunction: Status post permanent pacer implantation. Currently simply functioning okay. Status: Acute (4) Pacemaker: Pacing function is appropriate. It was interrogated in the emergency room. Except for the high ventricular pacing threshold, the function is appropriate. Status: Acute (5) Elevated troponin: Elevated troponin is nonspecific. She had a cardiac catheterization last month and was found to have only mild coronary artery disease. She has no evidence of any myocardial injury at this time. Status: Acute Additional A&P Information From a cardiac standpoint, patient seems to be stable. An ENT/neurology evaluation may be appropriate. I will be discussing this with Dr Rick. Coding Level of Care Code Acute Printed Circuit Board Panels Developer for Chg Fwd Diagnoses Dizziness of unknown cause R42 Pre-syncope R55 Sinus node dysfunction I49.5 Pacemaker Z95.0 Elevated troponin R79.89
[2020-06-18 17:03] LABS: Add Urine Microscopic? NO
[2020-06-18 17:10] LABS: Bilirubin Urine Neg (NEGATIVE); Blood Urine Neg (Negative); Glucose Urine UA Norm (Normal); Ketones Urine Negative (Negative); Nitrate Urine Negative (Negative); Protein Urine Neg (Negative); Urine Appearance Clear (CLEAR); Urine Color Yellow (Yellow); pH Urine 8 (5-7)
[2020-06-18 17:11] LABS: Leukocyte Esterase Urine Negative (Negative); Sulfosalicylic Acid Urine Negative (Negative); Urobilinogen Urine Norm (Negative)
--- NOTE | 2020-06-18 17:13 | P.HP_ITS ---
Providers/Chief Complaint Admitting Physician: Cyril Monteiro MD Primary Care Provider: Acosta Wild DO Chief Complaint: NAUSEA WEAKNESS AND TINGLING History of Present Illness Ceci Manning is a 60 year old female with a past medical history of pacemaker placement for symptomatic bradycardia, hypothyroidism, currently postmenopausal on estradiol who presents to [facility] due to complaints of lightheadedness, dizziness, presyncope. Patient tells me that when she got out of the hospital, she was doing well, she did have she continued to have episodes of fatigue, malaise, denies passing out, but did have presyncopal episodes, she did go to cardiology, saw Page Jules, the threshold of her pacemaker was adjusted,. However patient tells me that she continues to have episodes of fatigue, malaise, weakness, no chest pain, no shortness of breath, no seizure- like episodes, no blacking out. She also reports numbness and tingling in her peripheral extremities, no focal neurologic weakness, no slurring of her speech, no troubles with coordination. Patient states that this morning she woke up and she felt generalized weakness, but she decided to garden, when she was gardening, she said that she felt fairly lightheaded and dizzy and thought she was going almost passed out so she decided to come to the emergency room. Review of Systems Const: Reports: fatigue and malaise; Denies: fever(s) or chills Eyes: Denies: change in vision or blurry vision ENMT: Denies: nasal congestion Resp: Denies: dyspnea, productive cough, non-productive cough or wheezing GI: Denies: abdominal pain, nausea, vomiting, hematemesis, diarrhea, constipation, hematochezia or melena : Denies: flank pain, dysuria or urinary frequency Musc: Denies: neck pain or back pain Skin/Breast: Denies: rash Neuro: Reports: dizziness; Denies: headache(s) or vertigo Psych: Denies: anxiety or depression Endo: Denies: polyuria or polydipsia Medications/Allergies Home Medications Medication Instructions Recorded Confirmed Last Taken Type diazepam 2 - 4 mg PO BID PRN 05/07/20 06/18/20 06/01/20 History estradiol 0.5 mg PO DAILY 05/07/20 06/18/20 06/18/20 History levothyroxine 125 mcg PO DAILY 05/07/20 06/18/20 06/18/20 History trazodone 100 mg PO BEDTIME 05/07/20 06/18/20 06/17/20 History omeprazole 40 mg PO DAILY #30 cap 05/08/20 06/18/20 06/18/20 Rx Vitamin B-12 See Rx Instructions .ROUTE .COMPLEX 06/03/20 06/18/20 06/18/20 History Vitamin B-6 1 tab PO DAILY 06/03/20 06/18/20 06/18/20 History Vitamin D3 [place] See Rx Instructions .ROUTE .COMPLEX 06/03/20 06/18/20 Unknown History acetaminophen [Tylenol Extra 1,000 mg PO BEDTIME 06/03/20 06/18/20 06/17/20 History Strength] meloxicam 15 mg PO BEDTIME 06/05/20 06/18/20 06/17/20 History amoxicillin 500 mg PO TID 06/18/20 06/18/20 06/18/20 08:00 History hydrochlorothiazide 12.5 mg PO DAILY 06/18/20 06/18/20 06/18/20 History lisinopril 10 mg PO DAILY 06/18/20 06/18/20 06/18/20 History Allergies Allergy/AdvReac Type Severity Reaction Status Date / Time meperidine [From Demerol] Allergy ADR-Halluci Verified 06/18/20 13:29 nating Sulfa (Sulfonamide Allergy ALGY-Swell Verified 06/18/20 13:29 Antibiotics) Lip/Tongue/Throat PFSH Acute PFSH: Medical History Atypical chest pain Borderline diabetes Fracture of lower extremity GERD (gastroesophageal reflux disease) Hiatal hernia Hypertension Hypothyroidism Migraine headache Pacemaker Rectal fistula Sinus node dysfunction Surgical History H/O hysterectomy with oophorectomy Hx laparoscopic cholecystectomy Family History Mother Cancer Multiple myeloma CAD (coronary artery disease) Atrial fibrillation Stroke Father Cancer Prostate cancer, metastatic CAD (coronary artery disease) Had myocardial infarction Brother CAD (coronary artery disease) Atrial fibrillation Social History Smoking and tobacco status: never smoked Alcohol intake: never Household members: spouse Vitals/I&O/Wt Last Vital Signs Temp 98.4 F 06/18/20 15:47 Pulse 51 L 06/18/20 16:30 Resp 17 06/18/20 15:47 BP 116/56 06/18/20 16:30 Pulse Ox 100 06/18/20 15:47 Weight last 48 hrs Weight 61.235 kg Physical Exam Const: COMMON NORMALS: no acute distress and patient oriented x3 GENERAL APPEARANCE: cooperative and comfortable HENMT: COMMON NORMALS: normocephalic HEAD & SCALP: normocephalic Eye: COMMON NORMALS: Equal, round and reactive pupils present, EOMs intact bilaterally and no papilledema GENERAL EYE: appearance normal, both eyes and all related structures PUPIL: Yes Equal, round and reactive pupils present DIRECT OPHTHALMOSCOPY: Yes no papilledema Neck/C-Spine: COMMON NORMALS: full ROM, no lymphadenopathy, no JVD and Thyroid normal THYROID: Thyroid normal Lymph: LYMPHATIC: no lymphadenopathy noted Resp: COMMON NORMALS: normal respiratory effort, No retractions, No use of accessory muscles and clear to auscultation bilaterally AUSCULTATION: clear t o auscultation bilaterally Cardio: COMMON NORMALS: no JVD, regular rate, regular rhythm, S1 normal heart sound present, S2 normal heart sound present, No gallops present (Cardio), No clicks present (Cardio) and No murmurs present (Cardio) RATE: regular rate RHYTHM: regular rhythm HEART SOUNDS: S1 normal heart sound present and S2 normal heart sound present GI: COMMON NORMALS: Normal to inspection, nondistended, normoactive bowel sounds present, Soft to palpation, non-tender and No hepatosplenomegaly present PALPATION: Yes Soft to palpation and Yes No hepatosplenomegaly present Extremity: COMMON NORMALS: normal to inspection, full ROM and no pedal edema Neuro: COMMON NORMALS: patient oriented x3, CN's II-XII intact bilaterally, moves all extremities and no focal motor deficits Psych: COMMON NORMALS: mental status grossly normal, Normal thought process present and cooperative THOUGHT PROCESS: Normal thought process present Data : 06/18/20 12:20 06/18/20 11:30 Micro: Microbiology 06/18/20 12:20 Blood Culture - Preliminary Blood SPECIMEN COLLECTED 06/18/20 12:15 Blood Culture - Preliminary Blood SPECIMEN COLLECTED A&P Assessment and plan (1) Dizziness of unknown cause: -No significant signs of UTI, no focal pneumonia, no significant electrolyte abnormalities, lactic acid is 2.7 -We will have nurses do orthostatic vitals -Continue IV hydration -Continue telemetry monitoring -Of note patient's JOLANTA was positive, will have patient follow-up with rheumatology -We will do an MRI of the brain tomorrow, to evaluate for posterior circulation stroke Status: Acute (2) Near syncope: Status: Acute (3) Elevated troponin: Status: Acute Additional A&P Information Lovenox for DVT prophylaxis, patient is a full code Attestations Medical Necessity Statement*: Patient course hospitalization, outpatient with observation, for dizziness Coding Level of Care Code Acute Cpr Ambulance Driver for dennis Lama Diagnoses Dizziness of unknown cause R42 Near syncope R55 Elevated troponin R79.89
[2020-06-18] MEDS: sodium chloride 0.9% 1,000 ML 100 ML IV (17:49)
[2020-06-18] MEDS: enoxaparin 40 mg/0.4 mL Syringe SUBCUT (17:49)
--- NOTE | 2020-06-18 17:58 | ECG_ITS ---
[facility] Test Date: 2020-06-18 Pat Name: Ceci Manning Department: Room: 104 Gender: Female Pediatrician/Medical Doctor: : 1960 Requested By: Eboni Das Order Number: [id number] Okeefe MD: Jessica Hand M.D. Measurements Intervals [place] Rate: 55 P: 247 CA: 145 QRS: 0 QRSD: 103 T: -82 QT: 493 QTc: 472 Interpretive Statements ECTOPIC ATRIAL BRADYCARDIA MODERATE T-WAVE ABNORMALITY, CONSIDER INFERIOR ISCHEMIA [-0.1+ mV T WAVE IN II/aVF] Compared to ECG 06/18/2020 14:47:47 Bradycardia, nonsinus now present T-wave abnormality now present Possible ischemia now present Sinus bradycardia no longer present Electronically Signed On 06-18-2020 22:57:28 CDT by Jessica Hand M.D. [id number]
--- NOTE | 2020-06-18 18:02 | CTR_ITS ---
PROCEDURE INFORMATION: Exam: CT Angiography Head With Contrast Exam date and time: 06/18/2020 6:26 PM Age: 60 years old Clinical indication: Pain; Dizziness and giddiness and headache; Additional info: Presyncope TECHNIQUE: Imaging protocol: Computed tomography angiography of the head with intravenous contrast. 3D rendering (Not supervised by radiologist): MIP and/or 3D reconstructed images were created by the technologist. Radiation optimization: All CT scans at this facility use at least one of these dose optimization techniques: automated exposure control; mA and/or kV adjustment per patient size (includes targeted exams where dose is matched to clinical indication); or iterative reconstruction. Contrast material: OMNI 350; Contrast volume: 95 ml; Contrast route: INTRAVENOUS (IV); COMPARISON: CT head wo con* [id number] 05/07/2020 11:45 AM RADIATION DOSE METRICS: Total DLP (mGy-cm): 2598.69 FINDINGS: ANTERIOR CIRCULATION: Right internal carotid artery: Unremarkable. Intracranial segment is patent with no significant stenosis. No aneurysm. Right middle cerebral artery: Unremarkable. No occlusion or significant stenosis. No aneurysm. Right anterior cerebral artery: Unremarkable. No occlusion or significant stenosis. No aneurysm. Left internal carotid artery: Unremarkable. Intracranial segment is patent with no significant stenosis. No aneurysm. Left middle cerebral artery: Unremarkable. No occlusion or significant stenosis. No aneurysm. Left anterior cerebral artery: Unremarkable. No occlusion or significant stenosis. No aneurysm. POSTERIOR CIRCULATION: Right vertebral artery: Unremarkable. No occlusion or significant stenosis. No aneurysm. Left vertebral artery: Unremarkable. No occlusion or significant stenosis. No aneurysm. Basilar artery: Unremarkable. No occlusion or significant stenosis. No aneurysm. Right posterior cerebral artery: Unremarkable. No occlusion or significant stenosis. No aneurysm. Left posterior cerebral artery: Unremarkable. No occlusion or significant stenosis. No aneurysm. IMPRESSION: No large vessel stenosis or occlusion. PROCEDURE INFORMATION: Exam: CT Angiography Neck With Contrast Exam date and time: 06/18/2020 6:26 PM Age: 60 years old Clinical indication: Pain; Dizziness and giddiness and headache; Additional info: Presyncope TECHNIQUE: Imaging protocol: Computed tomography angiography of the neck with intravenous contrast. 3D rendering (Not supervised by radiologist): MIP and/or 3D reconstructed images were created by the technologist. Radiation optimization: All CT scans at this facility use at least one of these dose optimization techniques: automated exposure control; mA and/or kV adjustment per patient size (includes targeted exams where dose is matched to clinical indication); or iterative reconstruction. Contrast material: OMNI 350; Contrast volume: 95 ml; Contrast route: INTRAVENOUS (IV); COMPARISON: CT head wo con* [id number] 05/07/2020 11:45 AM RADIATION DOSE METRICS: Total DLP (mGy-cm): 2598.69 FINDINGS: Right common carotid artery: No stenosis. No dissection or occlusion. Right internal carotid artery: Mild calcified plaque in the proximal right internal carotid artery with 0% stenosis. Right external carotid artery: No occlusion or stenosis of the origin. Right vertebral artery: No stenosis. No dissection or occlusion. Left common carotid artery: No stenosis. No dissection or occlusion. Left internal carotid artery: Moderate calcified plaque in the proximal left internal carotid artery with 0% stenosis. Left external carotid artery: No occlusion or stenosis of the origin. Left vertebral artery: No stenosis. No dissection or occlusion. Bones/joints: No acute fracture. Soft tissues: Normal. No significant soft tissue swelling. CT/CT angio headneck* [id number] IMPRESSION: 1. Moderate left and mild right calcified plaque in the internal carotid arteries. No significant stenosis. REFERENCES: NASCET CRITERIA. The degree of internal carotid artery stenosis is based on NASCET criteria. Normal is no stenosis. Mild is less than 50% stenosis. Moderate is 50-69% stenosis. Severe is 70% to 99% stenosis. Total occlusion is no detectable patent lumen. Radiation Dose CTDIVOL = (mGy): DLP = 2598.69~2598.69 (mGy-cm)
--- NOTE | 2020-06-18 18:15 | PC.NURSE ---
pt had an uneventful shift after coming from ER. came to visit, dr wray and filiberto both saw her. call light within reach. will continue to monitor.
[2020-06-18 18:31] LABS: Troponin 5 6HR 12.54 ng/L (0-10); Troponin 5 6HR Delta 4.54 ng/L (0-12)
[2020-06-18] MEDS: iohexol 350 mg/mL 100 mL Btl IV (18:42)
--- NOTE | 2020-06-18 19:15 | PC.NURSE ---
Rounding Patient is alert and oriented. Patient placed on telemetry, SCDs placed. Patient denies any pain. Will continue to monitor.
[2020-06-18] MEDS: trazodone 100 mg Tablet PO (21:31)
[2020-06-19] VITALS: BP 86/56; PULSE 62; RESP 15; TEMP 36.8; O2SAT 96
[2020-06-19 04:00] VITALS: BP 100/57; PULSE 62; RESP 17; TEMP 36.7; O2SAT 97
[2020-06-19 04:48] LABS: Basophils % 0.7 %; Eosinophils # 0.1 10^3/uL (0.0-0.8); Eosinophils % 2.5 %; Hematocrit 35.9 % (37.0-47.0); Hemoglobin 11.2 g/dL (11.5-15.3); Lymphocytes # 2.2 10^3/uL (0.8-4.8); Lymphocytes % 39.3 %; Mean Corpuscular HGB Conc 31.2 g/dL (30.0-36.0); Mean Corpuscular Hemoglobin 29.2 pg (28.0-34.0); Mean Corpuscular Volume 93.7 fL (81-99); Monocytes # 0.4 10^3/uL (0.2-0.9); Monocytes % 7.7 %; Neutrophils # 2.83 10^3/uL (1.8-7.7); Neutrophils % 49.6 %; Nucleated Red Blood Cells % 0 %; Platelet Count 236 10^3/cmm (130-400); Red Blood Count 3.83 10^6/uL (4.1-5.3); Red Cell Distribution Width 12.7 % (12.1-15.1); White Blood Count 5.7 10^3/uL (4.0-10.0)
[2020-06-19 05:32] LABS: Alanine Aminotransferase 11 U/L (0-33); Albumin Level 3.2 g/dL (3.5-5.2); Alkaline Phosphatase 55 IU/L (35-105); Anion Gap 9.9 (5-19); Aspartate Amino Transferase 15 U/L (0-32); Blood Urea Nitrogen 20 mg/dL (6-20); Calcium 8.2 mg/dL (8.5-10.5); Carbon Dioxide 25 mmol/L (22-29); Chloride 110 mmol/L (98-107); Globulin 2.5 g/dL (1.3-4.6); Glomerular Filtration Rate 102.7 mL/min (90-130); Glucose 142 mg/dL (65-115); Magnesium 2.1 mg/dL (1.7-2.3); Osmolality Calculated 291 mOsm/kg (285-295); Phosphorus 3.6 mg/dL (2.5-4.5); Potassium 3.9 mmol/L (3.5-5.1); Sodium 141 mmol/L (136-145); Total Bilirubin 0.2 mg/dL (0.15-1.2); Total Protein 5.7 g/dL (6.6-8.7)
[2020-06-19 05:35] LABS: Lactic Sepsis W/Reflex 0.6 mmol/L (0.5-2.2)
[2020-06-19 05:50] LABS: Creatine Phosphokinase 50 U/L (26-192)
--- NOTE | 2020-06-19 06:03 | PC.NURSE ---
End of shift: Patient has had a uneventful shift. She has rested well and remains alert and oriented. Patient denies any needs at this time. Vitals are stable will continue to monitor.
[2020-06-19 07:45] VITALS: BP 121/65; PULSE 73; RESP 17; TEMP 36.8; O2SAT 98
[2020-06-19 08:00] VITALS: BP 108/64; BP 129/80; BP 131/75
[2020-06-19] MEDS: sodium chloride 0.9% 1,000 ML 100 ML IV (08:11)
[2020-06-19] MEDS: levothyroxine 125 mcg Tablet PO (08:11)
[2020-06-19] MEDS: lisinopril 10 mg Tablet PO (08:11)
[2020-06-19] MEDS: pantoprazole DR 40 mg Tablet PO (08:11)
[2020-06-19] MEDS: hydroCHLOROthiazide 25 mg Tablet 12.5 MG PO (08:11)
--- NOTE | 2020-06-19 08:33 | P.PN_ITS ---
Subjective Subjective: Interval history: Patient is feeling much better today. She has not had any arrhythmias on the monitor. Pacemaker function appears to be appropriate. Vital signs remained stable. Afebrile. Medications: Medication Review Details: Current Medications Acetaminophen (Tylenol) 650 mg PO Q6H PRN PRN Reason: Mild/Mod Pain Or Temp >/= 101 Diazepam (Valium) 2 mg PO BID PRN PRN Reason: Anxiety Enoxaparin Sodium (Lovenox) 40 mg SUBCUT Q24H [facility] Last Admin: 06/18/20 17:49 Dose: 40 mg Documented by: Hydrochlorothiazide (Hctz) 12.5 mg PO DAILY [facility] Last Admin: 06/19/20 08:11 Dose: 12.5 mg Documented by: Sodium Chloride (Sodium Chloride 0.9%) 1,000 mls @ 100 mls/hr IV .Q10H [facility] Last Admin: 06/19/20 08:11 Dose: 100 mls/hr Documented by: Levothyroxine Sodium (Synthroid) 125 mcg PO DAILY [facility] Last Admin: 06/19/20 08:11 Dose: 125 mcg Documented by: Lisinopril (Prinivil) 10 mg PO DAILY [facility] Last Admin: 06/19/20 08:11 Dose: 10 mg Documented by: Morphine Sulfate (Morphine) 2 mg IVP Q4H PRN PRN Reason: SEVERE PAIN Last Admin: 06/18/20 15:27 Dose: 2 mg Documented by: Ondansetron HCl (Zofran) 4 mg IVP Q6H PRN PRN Reason: NAUSEA AND VOMITING Pantoprazole Sodium (Protonix) 40 mg PO DAILY [facility] Last Admin: 06/19/20 08:11 Dose: 40 mg Documented by: Trazodone HCl (Desyrel) 100 mg PO BEDTIME [facility] Last Admin: 06/18/20 21:31 Dose: 100 mg Documented by: Vitals/I&O/Wt Last Vital Signs Temp 98.2 F 06/19/20 07:45 Pulse 73 06/19/20 07:45 Resp 17 06/19/20 07:45 BP 108/64 06/19/20 08:00 Pulse Ox 98 06/19/20 07:45 06/18/20 06/19/20 06/19/20 22:59 06:59 14:59 Intake Total 480 / 480 1450 / 1930 480 / 480 Balance 480 / 480 1450 / 1930 480 / 480 Weight last 48 hrs Weight 135 lb Physical Exam Narrative: EXAM NARRATIVE: GENERAL: The patient is alert and oriented times three. Not in any acute distress. HEENT: No significant pallor, icterus or lymphadenopathy.Oral cavity: There are no mucous membrane lesions. NECK: Trachea appears to be central. No masses noted. No JVD or thyromegaly appreciated. RESPIRATORY: Chest is symmetrical. No intercostals muscle retraction or any accessory muscle activation. There is no chest wall tenderness. Breath sounds are heard bilaterally. No rales or rhonchi heard. No evidence of any consolidation. The pacemaker site has no hematoma or bleeding. BREASTS: Deferred. HEART: The heart sounds are normal. No S3 or S4. No significant murmurs. No pericardial rub ABDOMEN: No vessel pulsations or distention. No tenderness. No organomegaly appreciated. Bowel sounds are normally heard. : Deferred. RECTAL: Deferred. LYMPHATIC: No lymphadenopathy noted in the neck or groin. EXTREMITIES: No edema or cyanosis. No clubbing. Peripheral pulses are palpated in fairly good volume and amplitude MUSCULOSKELETAL: No acute joint deformities or swelling SKIN: There are no significant rashes or ecchymosis NEUROPSYCHIATRIC: The patient is alert and oriented x3. Appears to be in a good mood. No tremors or rigidity noted. Data : 06/19/20 04:05 06/19/20 04:05 Other Labs: Laboratory Last Values WBC 5.7 10^3/uL (4.0-10.0) 06/19/20 04:05 RBC 3.83 10^6/uL (4.1-5.3) L 06/19/20 04:05 Hgb 11.2 g/dL (11.5-15.3) L 06/19/20 04:05 Hct 35.9 % (37.0-47.0) L 06/19/20 04:05 MCV 93.7 fL (81-99) 06/19/20 04:05 MCH 29.2 pg (28.0-34.0) 06/19/20 04:05 MCHC 31.2 g/dL (30.0-36.0) 06/19/20 04:05 RDW 12.7 % (12.1-15.1) 06/19/20 04:05 Plt Count 236 10^3/cmm (130-400) 06/19/20 04:05 MPV 11.0 fL (7.4-10.4) H 06/19/20 04:05 Neut % (Auto) 49.6 % 06/19/20 04:05 Lymph % (Auto) 39.3 % 06/19/20 04:05 Delta % (Auto) 7.7 % 06/19/20 04:05 Eos % (Auto) 2.5 % 06/19/20 04:05 Baso % (Auto) 0.7 % 06/19/20 04:05 Neut # (Auto) 2.83 10^3/uL (1.8-7.7) 06/19/20 04:05 Lymph # (Auto) 2.2 10^3/uL (0.8-4.8) 06/19/20 04:05 Delta # (Auto) 0.4 10^3/uL (0.2-0.9) 06/19/20 04:05 Eos # (Auto) 0.1 10^3/uL (0.0-0.8) 06/19/20 04:05 Baso # (Auto) 0.0 10^3/uL (0.0-0.1) 06/19/20 04:05 Nucleated RBC % (auto) 0 % 06/19/20 04:05 Nucleated RBCs # 0.0 /100WBC 06/19/20 04:05 PT 11.90 SECONDS (12.1-14.9) L 06/18/20 11:30 INR 0.86 (0.8-1.2) 06/18/20 11:30 Sodium 141 mmol/L (136-145) 06/19/20 04:05 Potassium 3.9 mmol/L (3.5-5.1) 06/19/20 04:05 Chloride 110 mmol/L (98-107) H 06/19/20 04:05 Carbon Dioxide 25 mmol/L (22-29) 06/19/20 04:05 Anion Gap 9.9 (5-19) 06/19/20 04:05 BUN 20 mg/dL (6-20) 06/19/20 04:05 Creatinine 0.6 mg/dL (0.5-0.9) 06/19/20 04:05 GFR Calculation 102.7 mL/min (90-130) 06/19/20 04:05 Glucose 142 mg/dL (65-115) H 06/19/20 04:05 Calculated Osmolality 291 mOsm/kg (285-295) 06/19/20 04:05 Lactic Acid 0.6 mmol/L (0.5-2.2) 06/19/20 04:05 Lactic Acid (Sepsis) 1.6 mmol/L (0.5-2.2) 06/18/20 15:15 Calcium 8.2 mg/dL (8.5-10.5) L 06/19/20 04:05 Phosphorus 3.6 mg/dL (2.5-4.5) 06/19/20 04:05 Magnesium 2.1 mg/dL (1.7-2.3) 06/19/20 04:05 Total Bilirubin 0.2 mg/dL (0.15-1.2) 06/19/20 04:05 AST 15 U/L (0-32) 06/19/20 04:05 ALT 11 U/L (0-33) 06/19/20 04:05 Alkaline Phosphatase 55 IU/L (35-105) 06/19/20 04:05 Creatine Kinase 50 U/L (26-192) 06/19/20 04:05 Troponin T Baseline 8 ng/L (0-10) 06/18/20 11:30 Troponin T 120 Minute 12.95 ng/L (0-10) H 06/18/20 13:40 Delta Troponin T 4.95 ABS# (0-10) 06/18/20 13:40 Troponin T Hi Sens 6Hr 12.54 ng/L (0-10) H 06/18/20 17:45 Troponin T Hi Sens 6Hr Delta 4.54 ng/L (0-12) 06/18/20 17:45 NT-Pro-B Natriuret Pep 203 pg/mL (0-125) H 06/18/20 11:30 Total Protein 5.7 g/dL (6.6-8.7) L D 06/19/20 04:05 Albumin 3.2 g/dL (3.5-5.2) L 06/19/20 04:05 Globulin 2.5 g/dL (1.3-4.6) 06/19/20 04:05 Lipase 56 U/L (13-60) 06/18/20 11:30 TSH 1.71 uIU/mL (0.27-4.20) 06/18/20 11:30 Free T4 1.90 ng/dL (0.82-1.77) H 06/18/20 11:30 Urine Color Yellow (Yellow) 06/18/20 16:36 Urine Appearance Clear (CLEAR) 06/18/20 16:36 Urine pH 8 (5-7) H 06/18/20 16:36 Ur Specific [place] 1.010 (1.005-1.030) 06/18/20 16:36 Urine Protein Neg (Negative) 06/18/20 16:36 Urine Glucose (UA) Norm (Normal) 06/18/20 16:36 Urine Ketones Negative (Negative) 06/18/20 16:36 Urine Blood Neg (Negative) 06/18/20 16:36 Urine Nitrate Negative (Negative) 06/18/20 16:36 Urine Bilirubin Neg (NEGATIVE) 06/18/20 16:36 Prot Sulfosalicylic Acd Negative (Negative) 06/18/20 16:36 Urine Urobilinogen Norm mg/dL (Negative) 06/18/20 16:36 Ur Leukocyte Esterase Negative (Negative) 06/18/20 16:36 Serum Ketones Negative (Negative) 06/18/20 11:30 Micro: Microbiology 06/18/20 12:20 Blood Culture - Preliminary Blood SPECIMEN COLLECTED 06/18/20 12:15 Blood Culture - Preliminary Blood SPECIMEN COLLECTED A&P Assessment and plan (1) Dizziness of unknown cause: Patient's episodes of dizziness, tingling and numbness and other associated symptoms are unexplained at this time. Her blood pressure and the heart rate seems to be appropriate. Vestibular dysfunction/hyperventilation/neurological abnormalities are considerations. He had a CT of the head today. No significant lesions were noted. Status: Acute (2) Pre-syncope: Patient has no evidence of any tachy arrhythmia on the pacemaker telemetry . No hypotension based on the blood pressure recordings in the emergency room. Most likely he may have a noncardiac etiology for the symptoms. Patient may benefit from a neurology evaluation. Apparently she refused to be seen by the neurology service here in this hospital. Status: Acute (3) Sinus node dysfunction: Status post permanent pacer implantation. Currently simply functioning okay. Status: Acute (4) Pacemaker: Pacing function is appropriate. It was interrogated in the emergency room. Except for the high ventricular pacing threshold, the function is appropriate. Status: Acute (5) Elevated troponin: Elevated troponin is nonspecific. She had a cardiac catheterization last month and was found to have only mild coronary artery disease. She has no evidence of any myocardial injury at this time. Status: Acute Additional A&P Information If the patient continues remain stable, may be discharged home from a cardiac standpoint. Patient is wanting to go to [facility] in [place] further evaluation, as an outpatient. We may make the arrangements for the same. 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
--- NOTE | 2020-06-19 09:58 | PM.MISC ---
Miscellaneous Note Purpose of Documentation: Information Note: Dr. Madeleine Shaikh called me because this 60-year-old woman has spent much time either in the emergency department or at [facility] since the end of April and previously was not receiving medical care as far as I can tell. She has a pacemaker because she came in dizzy and bradycardic. Pacemaker was installed recently. She had a CAT scan of the head that was unremarkable and CTA was unremarkable, reviewed today. She is still dizzy. She is having headaches. I asked Dr. Shaikh to organize an EEG as an outpatient and neurology consult. I asked that she be started on amitriptyline 25 mg at at bedtime on the chance that she is experiencing migraine.
[2020-06-19 11:53] VITALS: BP 121/65; PULSE 73; RESP 17; TEMP 36.8; O2SAT 98
[2020-06-19 12:00] VITALS: BP 138/78; PULSE 63; RESP 17; TEMP 36.5; O2SAT 98
--- NOTE | 2020-06-19 13:45 | P.DS_ITS ---
Discharge Providers Date of Admission: 06/18/20 14:23 Date of Discharge: June 19, 2020 Attending Provider at Admission: Cyril Monteiro MD Attending Provider at Discharge: Crispin Rick MD Primary Care Provider: Acosta Wild DO Diagnoses at Discharge Discharge Diagnosis (1) Dizziness of unknown cause: Status: Acute (2) Pre-syncope: Status: Acute (3) Sinus node dysfunction: Status: Acute (4) Pacemaker: Status: Acute (5) Elevated troponin: Status: Acute Reason for Visit Reason for Visit: NAUSEA WEAKNESS AND TINGLING Hospital Course Discharge Summary: This is a 60-year-old female with a past medical history of hypothyroidism, hypertension, GERD, sinus node dysfunction and sinus bradycardia status post pacemaker placement, who presents to [facility] due to presyncopal episodes The etiology of patient's presyncopal episode remains unclear at this time, she had an extensive work-up on her previous admission; she did have a cardiac catheterization on the last admission, no significant obstructive CAD. She had bilateral carotid artery ultrasounds which showed less than 50% ICA stenosis bilaterally. Echocardiogram showed an ejection fraction of 65%, no regional wall motion abnormalities. Her orthostats were relatively unremarkable. Was within normal limits. Given her symptomatology of presyncope, I ordered a CT angiogram of her head and neck to evaluate for possible TIA or a vascular malformation or subclavian steal, however upon review there is moderate left and mild right calcified plaque in the internal carotid arteries, no significant stenosis, no large vessel stenosis or occlusion. Unfortunately MRI cannot be performed given her pacemaker. I did speak to neurology who recommended performing an EEG, to evaluate for subclinical seizures, try Elavil for possible symptomatology related to migraines and to follow-up with Dr. Gil in 1 week. Patient declined, she wanted to have further evaluation by physicians at [facility]. Patient's pacemaker was also interrogated down in the emergency room, no significant events, she also was seen by cardiology, who felt that patient's presyncopal episodes were unlikely cardiac in etiology. Nonetheless patient wanted further evaluation at [facility]. José Miguel javier states that she knows physicians at [facility], and they have already accepted her as a patient, will have patient follow-up with physicians at [facility] for further evaluation for presyncopal episodes. Of note patient JOLANTA was positive, JOLANTA titer was high, I again recommended patient to see piping engineer here in town, but she wants to follow-up with rheumatology at [facility]. Patient was advised that if she were to have recurrent presyncopal episodes please to come back to emergency room Physical Exam Const: COMMON NORMALS: no acute distress and patient oriented x3 HENMT: COMMON NORMALS: normocephalic HEAD & SCALP: normocephalic Neck/C-Spine: COMMON NORMALS: no JVD Resp: COMMON NORMALS: normal respiratory effort, No retractions, No use of accessory muscles and clear to auscultation bilaterally AUSCULTATION: clear to auscultation bilaterally Cardio: COMMON NORMALS: no JVD, regular rate, regular rhythm, S1 normal heart sound present and S2 normal heart sound present RATE: regular rate RHYTHM: regular rhythm HEART SOUNDS: S1 normal heart sound present and S2 normal heart sound present GI: COMMON NORMALS: Normal to inspection, nondistended, normoactive bowel sounds present, Soft to palpation, non-tender, No hepatosplenomegaly present, no masses and no bruits PALPATION: Yes Soft to palpation and Yes No hepatosplenomegaly present Extremity: COMMON NORMALS: capillary refill normal, no clubbing, cyanosis or edema, no calf tenderness and no pedal edema Neuro: COMMON NORMALS: patient oriented x3 Psych: COMMON NORMALS: mental status grossly normal Discharge Data Data Completed and Pending: Completed Studies During Hospitalization Category Date Time Status CT angio headneck * [id number] Rout ine Cat Scan 06/18/20 18:02 Completed XR chest 1V alexis ble [id number] Stat Exams 06/18/20 11:57 Completed Pending at discharge Category Date Time Status Blood Culture Sta t Lab 06/18/20 12:20 Results Labs from last 24 hours 06/19/20 06/19/20 06/19/20 04:05 04:05 04:05 WBC RBC Hgb Hct MCV MCH MCHC RDW Plt Count MPV Neut % (Auto) Lymph % (Auto) [place] % (Auto) Eos % (Auto) Baso % (Auto) Neut # (Auto) Lymph # (Auto) [place] # (Auto) Eos # (Auto) Baso # (Auto) Nucleated RBC % (a uto) Nucleated RBCs # Sodium 141 Potassium 3.9 Chloride 110 H Carbon Dioxide 25 Anion Gap 9.9 BUN 20 Creatinine 0.6 GFR Calculation 102.7 Glucose 142 H Calculated Osmolal ity 291 Lactic Acid 0.6 Lactic Acid (Sepsi s) Calcium 8.2 L Phosphorus 3.6 Magnesium 2.1 Total Bilirubin 0.2 AST 15 ALT 11 Alkaline Phosphata se 55 Creatine Kinase 50 Troponin T 120 Min [place] Delta Troponin T Troponin T Hi Sens 6Hr Troponin T Hi Sens 6Hr Delta Total Protein 5.7 L D Albumin 3.2 L Globulin 2.5 Urine Color Urine Appearance Urine pH Ur Specific Gravit y Urine Protein Urine Glucose (UA) Urine Ketones Urine Blood Urine Nitrate Urine Bilirubin Prot Sulfosalicyli c Acd Urine Urobilinogen Ur Leukocyte Dorys ase 06/19/20 06/18/20 06/18/20 04:05 17:45 16:36 WBC 5.7 RBC 3.83 L Hgb 11.2 L Hct 35.9 L MCV 93.7 MCH 29.2 MCHC 31.2 RDW 12.7 Plt Count 236 MPV 11.0 H Neut % (Auto) 49.6 Lymph % (Auto) 39.3 [place] % (Auto) 7.7 Eos % (Auto) 2.5 Baso % (Auto) 0.7 Neut # (Auto) 2.83 Lymph # (Auto) 2.2 [place] # (Auto) 0.4 Eos # (Auto) 0.1 Baso # (Auto) 0.0 Nucleated RBC % (a uto) 0 Nucleated RBCs # 0.0 Sodium Potassium Chloride Carbon Dioxide Anion Gap BUN Creatinine GFR Calculation Glucose Calculated Osmolal ity Lactic Acid Lactic Acid (Sepsi s) Calcium Phosphorus Magnesium Total Bilirubin AST ALT Alkaline Phosphata se Creatine Kinase Troponin T 120 Min [place] Delta Troponin T Troponin T Hi Sens 6Hr 12.54 H Troponin T Hi Sens 6Hr Delta 4.54 Total Protein Albumin Globulin Urine Color Yellow Urine Appearance Clear Urine pH 8 H Ur Specific Gravit y 1.010 Urine Protein Neg Urine Glucose (UA) Norm Urine Ketones Negative Urine Blood Neg Urine Nitrate Negative Urine Bilirubin Neg Prot Sulfosalicyli c Acd Negative Urine Urobilinogen Norm Ur Leukocyte Dorys ase Negative 06/18/20 06/18/20 15:15 13:40 WBC RBC Hgb Hct MCV MCH MCHC RDW Plt Count MPV Neut % (Auto) Lymph % (Auto) [place] % (Auto) Eos % (Auto) Baso % (Auto) Neut # (Auto) Lymph # (Auto) [place] # (Auto) Eos # (Auto) Baso # (Auto) Nucleated RBC % (a uto) Nucleated RBCs # Sodium Potassium Chloride Carbon Dioxide Anion Gap BUN Creatinine GFR Calculation Glucose Calculated Osmolal ity Lactic Acid Lactic Acid (Sepsi s) 1.6 Calcium Phosphorus Magnesium Total Bilirubin AST ALT Alkaline Phosphata se Creatine Kinase Troponin T 120 [place] 12.95 H Delta Troponin T 4.95 Troponin T Hi Sens 6Hr Troponin T Hi Sens 6Hr Delta Total Protein Albumin Globulin Urine Color Urine Appearance Urine pH Ur Specific Gravit y Urine Protein Urine Glucose (UA) Urine Ketones Urine Blood Urine Nitrate Urine Bilirubin Prot Sulfosalicyli c Acd Urine Urobilinogen Ur Leukocyte Dorys ase Vitals: Last Vital Signs Temp 97.7 F 06/19/20 12:00 Pulse 63 06/19/20 12:00 Resp 17 06/19/20 12:00 BP 138/78 06/19/20 12:00 Pulse Ox 98 06/19/20 12:00 Discharge Plan Discharge Patient Disposition: Home Condition: Stable Prescriptions: Continued trazodone 100 mg tablet 100 mg PO BEDTIME RF: 0 diazepam 2 mg tablet 2 - 4 mg PO BID PRN (Reason: Anxiety) RF: 0 levothyroxine 125 mcg tablet 125 mcg PO DAILY RF: 0 estradiol 0.5 mg tablet 0.5 mg PO DAILY RF: 0 omeprazole 40 mg capsule,delayed release(DR/EC) 40 mg PO DAILY Qty: 30 RF: 0 acetaminophen [Tylenol Extra Strength] 500 mg Tablet 1,000 mg PO BEDTIME RF: 0 Vitamin B-12 See Rx Instructions .ROUTE .COMPLEX RF: 0 Vitamin B-6 1 tab PO DAILY RF: 0 Vitamin D3 [place] See Rx Instructions .ROUTE .COMPLEX RF: 0 meloxicam 15 mg Tablet 15 mg PO BEDTIME RF: 0 amoxicillin 500 mg capsule 500 mg PO TID RF: 0 lisinopril 10 mg tablet 10 mg PO DAILY RF: 0 hydrochlorothiazide 12.5 mg tablet 12.5 mg PO DAILY RF: 0 Discharge Orders: Discharge Order (Routine); Ordered 06/19/20 Ordered By: Crispin Rick Referrals: Park Raya MD [Physician] - (You have an follow-up with Dr. Raya on Jul.18 at 9:30a.m. If you have any questions or need to reschedule. Please call ) Acosta Wild, DO [Primary Care Provider] - (You have an follow-up appointment with Dr. Wild on Wednesday, with Check-in at 2:10p.m. If you have any questions or need to reschedule. Please call ) Discharge Diet: Cardiac Discharge Activity: Resume usual activity Patient Instructions: Dizziness, Syncope (DC) Activity Restrictions/Additional Instructions: -Please hydrate well, drink plenty of electrolyte balance fluids -Please follow-up with physicians at [facility] -If you have lightheadedness or dizziness please come back to the emergency room Discharge Date/Time: 06/19/20 13:32 Discharge Attestations Time Spent in Discharge Care*: less than 30 min Quality Metrics Clinical Quality Measures During this hospital stay, did patient experience: None Coding 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
--- NOTE | 2020-06-19 14:46 | PC.PT ---
Per occupational therapy evaluation and discussion with occupational therapist, patient demonstrates good safety awareness and independence with transfers and ambulation in room without difficulty; will defer PT evaluation until further orders.
== END 2020-06-19 13:32 | disposition home or self-care (01) ==
LOC: ER 14:29 → CSU 14:42
PROVIDERS: Emergency Medicine; Admitting Provider Internal Medicine; PCP Family Medicine; Visit Provider Family Medicine
DX: R42 Dizziness and giddiness (principal); R55 Syncope and collapse; I49.5 Sick sinus syndrome; R79.89 Other specified abnormal findings of blood chemistry; Z95.0 Presence of cardiac pacemaker; I10 Essential (primary) hypertension; E03.9 Hypothyroidism, unspecified; G43.909 Migraine, unspecified, not intractable, without status migrainosus; Z82.49 Family history of ischemic heart disease and other diseases of the circulatory system
CPT/HCPCS: 12345; 36415; 70496; 70498; 71045; 80053; 81003; 82009; 82550; 83605; 83690; 83735; 83880; 84100; 84439; 84443; 84484; 85025; 85610; 87040; 93005; 96360; 96361; 96372; 96374; 96375; 97165; 99283; 99285; G0378; J1650; J2270; J2405; J7030; Q9967

== ENCOUNTER 2020-06-30 09:21 | Emergency (ER) | payer BC, SELFPAY ==
[2020-06-30] VITALS (13 sets, daily range): BP systolic 91–165; BP diastolic 54–82; PULSE 52–68; RESP 16–24; TEMP 36.9; O2SAT 96–100; BMI 23.9
--- NOTE | 2020-06-30 09:28 | XRR_ITS ---
PROCEDURE INFORMATION: Exam: XR Chest, 1 View Exam date and time: 06/30/2020 9:29 AM Age: 60 years old Clinical indication: Chest pain; Type not specified; Prior surgery; Surgery date: 1-6 months; Surgery type: Pacemaker TECHNIQUE: Imaging protocol: XR of the chest Views: Frontal portable upright view of the chest. COMPARISON: CR XR chest 1V portable [id number] 06/18/2020 12:21 PM FINDINGS: Tubes, catheters and devices: EKG leads are present overlying the chest. Lungs: The lungs are clear bilaterally. The pulmonary vasculature is normal. Pleural space: No pleural effusion. No pneumothorax. Heart/Mediastinum: The heart is normal in size and contour. Mediastinum: Stable. Vasculature: A dual lead left subclavian permanent pacemaker is present. The right atrial and right ventricular leads appear to be in good position. Bones/joints: Stable. Organs: The gallbladder is likely surgically absent, with metallic clips overlying the gallbladder fossa. XR/XR chest 1V portable [id number] IMPRESSION: 1. No acute cardiopulmonary abnormality identified. 2. Prior cholecystectomy.
--- NOTE | 2020-06-30 09:28 | ECG_ITS ---
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 Measurements Intervals [place] Rate: 53 P: 62 OK: 136 QRS: 0 QRSD: 110 T: 54 QT: 438 QTc: 412 Interpretive Statements SINUS BRADYCARDIA Compared to ECG 06/18/2020 18:09:14 Bradycardia, nonsinus no longer present T-wave abnormality no longer present Possible ischemia no longer present Electronically Signed On 07-01-2020 19:15:48 CDT by Santosh Diehl M.D. [id number]
--- NOTE | 2020-06-30 09:35 | ED_ITS ---
HPI - Chest Pain General: Chief Complaint: Chest Pain Stated Complaint: CP/ARM PAIN Time Seen by Provider: 06/30/20 09:27 History of Present Illness: HPI narrative: This patient is a 60-year-old female who presents today with chest pain which radiates to her left arm. She also feels very weak, dizzy, nauseous. She has presented to the ED with multiple episodes similar to like this over the past few months. On the initial visit she was noted to have some bradycardia with heart rates down as low as the 30s. As a result of this she had a pacemaker placed in the last few times she has had these episodes the pacemaker is been functioning normally with a normal heart rate in the 70s. Blood pressure has also been normal. She was admitted and had recommendations made for EEG to evaluate for neurologic cause. She did not want any further testing done here and is planning to follow-up at [place]. She has an appointment with the accountant helper there coming up shortly. She also had a positive JOLANTA test and was suggested to follow-up with rheumat ology. Additionally she is already under treatment for tick illness and has been on doxycycline. She said this episode is just like the others that she has had other than this time it radiates to her left arm and is causing severe pain. She did have a cardiac cath done that was normal. This episode started about 815 this morning. MD complaint: chest pain and chest heaviness Onset (ago): hour(s) (1.5) Timing of current episode: episodic Prior episodes: Yes Onset: during rest Pain location: substernal Pain radiation: left arm Severity: severe Quality: aching and heaviness Relieving factors: nothing Exacerbating factors: nothing Associated symptoms: Reports nausea; Deny abdominal pain, dyspnea, fever(s) or vomiting Review of Systems General: Reports: 10 or more systems reviewed and unremarkable except in HPI and below Const: Denies: fever(s), chills, fatigue or malaise Eyes: Denies: change in vision ENMT: Denies: odynophagia Card: Reports: chest pain and pre-syncope; Denies: swelling of feet/ankles Resp: Denies: dyspnea, productive cough or non-productive cough GI: Reports: nausea; Denies: abdominal pain or vomiting : Denies: flank pain or difficulty voiding Musc: Denies: neck pain or back pain Skin/Breast: Denies: rash Neuro: Reports: weakness in extremities and difficulty walking; Denies: headache(s) Massimo/Lymph: Denies: easy bruising or easy bleeding PFSH ED PFSH: Medical History Atypical chest pain Borderline diabetes Fracture of lower extremity GERD (gastroesophageal reflux disease) Hiatal hernia Hypertension Hypothyroidism Migraine headache Pacemaker Rectal fistula Sinus node dysfunction Surgical History H/O hysterectomy with oophorectomy Hx laparoscopic cholecystectomy Family History Mother Cancer Multiple myeloma CAD (coronary artery disease) Atrial fibrillation Stroke Father Cancer Prostate cancer, metastatic CAD (coronary artery disease) Had myocardial infarction Brother CAD (coronary artery disease) Atrial fibrillation Social History Smoking and tobacco status: never smoked Alcohol intake: never Household members: spouse Physical Exam Const: COMMON NORMALS: patient oriented x3, no limitations and alert GENERAL APPEARANCE: cooperative HENMT: HEAD & SCALP: normal to inspection FACE & SINUS: normal facial exam Eye: GENERAL EYE: appearance normal, both eyes and all related structures Neck/C-Spine: COMMON NORMALS: supple, no meningeal signs and no JVD Chest: COMMONS NORMALS: normal inspection of the chest Resp: COMMON NORMALS: normal respiratory effort, No use of accessory muscles and clear to auscultation bilaterally AUSCULTATION: clear to auscultation bilaterally Cardio: COMMON NORMALS: no JVD, regular rate, regular rhythm and No murmurs present (Cardio) RATE: regular rate RHYTHM: regular rhythm GI: COMMON NORMALS: Normal to inspection, nondistended, normoactive bowel sounds present, Soft to palpation and non-tender INSPECTION: Yes normal to inspection AUSCULTATION: Yes normoactive bowel sounds PALPATION: Yes Soft to palpation Back/Pelvis: COMMON NORMALS: thoracic and lumbar spine normal to inspection Extremity: COMMON NORMALS: normal to inspection Neuro: COMMON NORMALS: patient oriented x3, moves all extremities, no focal motor deficits and no sensory deficits noted SENSORIUM/ORIENTATION: Yes alert MENINGEAL SIGNS: Yes no meningeal signs Psych: COMMON NORMALS: mental status grossly normal, cooperative and normal affect Skin: COMMON NORMALS: no rashes or lesions noted and turgor normal GENERAL SKIN EXAM: no rashes or lesions noted and turgor normal Course ED course: Patient requested transfer to [facility]. It is definitely not clear what is causing her symptoms. During the episode she had here in the ER her heart rate and blood pressure remained normal. She will be transferred to [facility] when a bed becomes available later this afternoon. I have asked our community resource officer to send not only today's records and imaging but also her cardiac cath report, echo, last discharge summary. Vital Signs: Vital signs: Vital Signs Temperature 98.4 F 06/30/20 09:37 Pulse Rate 68 06/30/20 15:00 Respiratory Rate 16 06/30/20 15:00 Blood Pressure 98/60 06/30/20 15:00 Pulse Oximetry 100 06/30/20 15:00 MDM - Chest Pain Lab Data: Labs: Lab Results 06/30/20 06/30/20 06/30/20 Range/Units 10:13 10:13 10:13 WBC 7.6 (4.0-10.0) 10^3/ uL RBC 4.90 (4.1-5.3) 10^6/u L Hgb 14.3 (11.5-15.3) g/dL Hct 44.5 (37.0-47.0) % MCV 90.8 (81-99) fL MCH 29.2 (28.0-34.0) pg MCHC 32.1 (30.0-36.0) g/dL RDW 12.6 (12.1-15.1) % Plt Count 330 (130-400) 10^3/c mm MPV 10.7 H (7.4-10.4) fL Neut % (Auto) 59.7 % Lymph % (Auto) 32.5 % [place] % (Auto) 5.5 % Eos % (Auto) 1.1 % Baso % (Auto) 0.9 % Neut # (Auto) 4.53 (1.8-7.7) 10^3/u L Lymph # (Auto) 2.5 (0.8-4.8) 10^3/u L [place] # (Auto) 0.4 (0.2-0.9) 10^3/u L Eos # (Auto) 0.1 (0.0-0.8) 10^3/u L Baso # (Auto) 0.1 (0.0-0.1) 10^3/u L Nucleated RBC % (a uto) 0 % Nucleated RBCs # 0.0 /100WBC PT 11.60 L (12.1-14.9) SECO NDS INR 0.83 (0.8-1.2) APTT 24.8 (23.9-36.7) SECO NDS D-Dimer (0-0.59) ug/mIFE U Sodium 139 (136-145) mmol/L Potassium 4.1 (3.5-5.1) mmol/L Chloride 101 (98-107) mmol/L Carbon Dioxide 24 (22-29) mmol/L Anion Gap 18.1 (5-19) BUN 23 H (6-20) mg/dL Creatinine 0.7 (0.5-0.9) mg/dL GFR Calculation 85.9 L (90-130) mL/min Glucose 127 H (65-115) mg/dL Calculated Osmolal ity 293 (285-295) mOsm/k g Lactic Acid (0.5-2.2) mmol/L Calcium 10.4 (8.5-10.5) mg/dL Total Bilirubin 0.4 (0.15-1.2) mg/dL AST 17 (0-32) U/L ALT 16 (0-33) U/L Alkaline Phosphata se 75 (35-105) IU/L Troponin T Baselin e (0-10) ng/L NT-Pro-B Natriuret Pep 176 H (0-125) pg/mL Total Protein 7.6 (6.6-8.7) g/dL Albumin 4.2 (3.5-5.2) g/dL Globulin 3.4 (1.3-4.6) g/dL 06/30/20 06/30/20 06/30/20 Range/Units 10:13 10:13 10:13 WBC (4.0-10.0) 10^3/ uL RBC (4.1-5.3) 10^6/u L Hgb (11.5-15.3) g/dL Hct (37.0-47.0) % MCV (81-99) fL MCH (28.0-34.0) pg MCHC (30.0-36.0) g/dL RDW (12.1-15.1) % Plt Count (130-400) 10^3/c mm MPV (7.4-10.4) fL Neut % (Auto) % Lymph % (Auto) % [place] % (Auto) % Eos % (Auto) % Baso % (Auto) % Neut # (Auto) (1.8-7.7) 10^3/u L Lymph # (Auto) (0.8-4.8) 10^3/u L [place] # (Auto) (0.2-0.9) 10^3/u L Eos # (Auto) (0.0-0.8) 10^3/u L Baso # (Auto) (0.0-0.1) 10^3/u L Nucleated RBC % (a uto) % Nucleated RBCs # /100WBC PT (12.1-14.9) SECO NDS INR (0.8-1.2) APTT (23.9-36.7) SECO NDS D-Dimer 0.82 H (0-0.59) ug/mIFE U Sodium (136-145) mmol/L Potassium (3.5-5.1) mmol/L Chloride (98-107) mmol/L Carbon Dioxide (22-29) mmol/L Anion Gap (5-19) BUN (6-20) mg/dL Creatinine (0.5-0.9) mg/dL GFR Calculation (90-130) mL/min Glucose (65-115) mg/dL Calculated Osmolal ity (285-295) mOsm/k g Lactic Acid 2.7 H (0.5-2.2) mmol/L Calcium (8.5-10.5) mg/dL Total Bilirubin (0.15-1.2) mg/dL AST (0-32) U/L ALT (0-33) U/L Alkaline Phosphata se (35-105) IU/L Troponin T Baselin e 36 H (0-10) ng/L NT-Pro-B Natriuret Pep (0-125) pg/mL Total Protein (6.6-8.7) g/dL Albumin (3.5-5.2) g/dL Globulin (1.3-4.6) g/dL Discharge Plan Discharge Patient Disposition: Xfer Other Referrals: Acosta Wild DO [Primary Care Provider] - Discharge Date/Time: 06/30/20 15:49 Coding Level of Care Code ED Senior Bi Developer for Chg Fwd Exam Comprehensive
--- NOTE | 2020-06-30 10:22 | PC.NURSE ---
Entered the room to start IV. Patient found shivering. IV was established along upper right arm, just above the AC space. The patient complained of chest pain while in the room. EKG repeated and shown to EMD. The patient experienced something similar to a vasovagal episode. Her vitals remained normal during the event. The episode lasted 2 minutes.
[2020-06-30 10:23] LABS: Basophils # 0.1 10^3/uL (0.0-0.1); Basophils % 0.9 %; Eosinophils # 0.1 10^3/uL (0.0-0.8); Eosinophils % 1.1 %; Hematocrit 44.5 % (37.0-47.0); Hemoglobin 14.3 g/dL (11.5-15.3); Lymphocytes # 2.5 10^3/uL (0.8-4.8); Lymphocytes % 32.5 %; Mean Corpuscular HGB Conc 32.1 g/dL (30.0-36.0); Mean Corpuscular Hemoglobin 29.2 pg (28.0-34.0); Mean Corpuscular Volume 90.8 fL (81-99); Mean Platelet Volume 10.7 fL (7.4-10.4); Monocytes # 0.4 10^3/uL (0.2-0.9); Monocytes % 5.5 %; Neutrophils # 4.53 10^3/uL (1.8-7.7); Neutrophils % 59.7 %; Nucleated Red Blood Cells % 0 %; Platelet Count 330 10^3/cmm (130-400); Red Cell Distribution Width 12.6 % (12.1-15.1); White Blood Count 7.6 10^3/uL (4.0-10.0)
[2020-06-30] MEDS: HYDROmorphone 1 mg/mL INJ 1 mL 0.5 MG IVP (10:27)
[2020-06-30] MEDS: metoclopramide 5 mg/mL SDV 2 mL 10 MG IVP (10:27)
[2020-06-30] MEDS: diphenhydrAMINE 50 mg/mL SDV 1mL IVP (10:27)
[2020-06-30 10:32] LABS: INR 0.83 (0.8-1.2)
[2020-06-30 10:33] LABS: Partial Thromboplastin Time 24.8 SECONDS (23.9-36.7)
[2020-06-30 10:42] LABS: Troponin(5th) Baseline 36 ng/L (0-10)
[2020-06-30] MEDS: LORazepam 2 mg/mL INJ 1 mL 0.5 MG IVP (10:44)
[2020-06-30 10:51] LABS: Alanine Aminotransferase 16 U/L (0-33); Albumin Level 4.2 g/dL (3.5-5.2); Alkaline Phosphatase 75 IU/L (35-105); Anion Gap 18.1 (5-19); Aspartate Amino Transferase 17 U/L (0-32); Blood Urea Nitrogen 23 mg/dL (6-20); Calcium 10.4 mg/dL (8.5-10.5); Carbon Dioxide 24 mmol/L (22-29); Chloride 101 mmol/L (98-107); Globulin 3.4 g/dL (1.3-4.6); Glomerular Filtration Rate 85.9 mL/min (90-130); Glucose 127 mg/dL (65-115); NT Pro B Type Natriuretic Pept 176 pg/mL (0-125); Osmolality Calculated 293 mOsm/kg (285-295); Potassium 4.1 mmol/L (3.5-5.1); Sodium 139 mmol/L (136-145); Total Bilirubin 0.4 mg/dL (0.15-1.2); Total Protein 7.6 g/dL (6.6-8.7)
--- NOTE | 2020-06-30 10:53 | CTR_ITS ---
PROCEDURE INFORMATION: Exam: CT Angiography Chest With Contrast Exam date and time: 06/30/2020 11:30 AM Age: 60 years old Clinical indication: Chest pain; Prior surgery; Surgery date: 1-6 months; Surgery type: Pacemaker; Additional info: Syncope, SOB TECHNIQUE: Imaging protocol: Computed tomographic angiography of the chest with intravenous contrast. 3D rendering (Not supervised by radiologist): MIP reconstructed images were created by the technologist. Radiation optimization: All CT scans at this facility use at least one of these dose optimization techniques: automated exposure control; mA and/or kV adjustment per patient size (includes targeted exams where dose is matched to clinical indication); or iterative reconstruction. Contrast material: OMNI 350; Contrast volume: 95 ml; Contrast route: INTRAVENOUS (IV); COMPARISON: CR (CHEST, ) 06/30/2020 9:36 AM RADIATION DOSE METRICS: Total DLP (mGy-cm): 563.98 FINDINGS: Pulmonary arteries: Normal. No pulmonary emboli. Aorta: Mild aortic arch atherosclerotic calcification without ectasia. Thyroid: The bilateral thyroid lobes are unremarkable. Lungs: Unremarkable. No consolidation. No masses. Pleural space: No pneumothorax. No pleural effusion. Heart: Normal. No pericardial effusion. Lymph nodes: No enlarged lymph nodes. Gallbladder and bile ducts: The gallbladder is surgically absent, with metallic clips in the gallbladder fossa. Bones/joints: Right shoulder rotator cuff calcification. T11 vertebral body hemangioma. Moderate chronic L1 vertebral body compression deformity. Soft tissues: Bilateral subpectoral mammary implants are present. CT/CT angio chest PE protcl [id number] IMPRESSION: 1. No pulmonary embolism identified. 2. No thoracic aortic aneurysm or dissection identified. 3. Prior cholecystectomy. Radiation Dose CTDIVOL = (mGy): DLP = 563.98 (mGy-cm)
--- NOTE | 2020-06-30 11:28 | ECG_ITS ---
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 Measurements Intervals [place] Rate: 55 P: 56 NH: 158 QRS: -17 QRSD: 91 T: 61 QT: 450 QTc: 431 Interpretive Statements SINUS BRADYCARDIA Compared to ECG 06/30/2020 09:32:14 No significant changes Electronically Signed On 07-01-2020 19:43:50 CDT by Santosh Diehl M.D. [id number] f
[2020-06-30 11:50] LABS: D Dimer 0.82 ug/mIFEU (0-0.59)
[2020-06-30 11:51] LABS: Lactic Sepsis W/Reflex 2.7 mmol/L (0.5-2.2)
--- NOTE | 2020-06-30 11:56 | PC.NURSE ---
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
[2020-06-30] MEDS: iohexol 350 mg/mL 100 mL Btl IV (12:16)
--- NOTE | 2020-06-30 12:43 | ECG_ITS ---
[facility] Test Date: 2020-06-30 Pat Name: Ceci Manning Department: Room: Gender: Female Associate Director Regulatory Affairs: : 1960 Requested By: Cheryl Ash Order Number: [id number] Sary MD: Santosh Diehl M.D. Measurements Intervals [facility] Rate: 64 P: 62 HI: 150 QRS: -37 QRSD: 96 T: 20 QT: 447 QTc: 464 Interpretive Statements SINUS RHYTHM WITH SINUS ARRHYTHMIA LEFT AXIS DEVIATION [QRS AXIS < -30] PATTERN CONSISTENT WITH PULMONARY DISEASE INTERPRETATION BASED ON A DEFAULT AGE OF 40 YEARS Compared to ECG 06/30/2020 10:19:46 Left-axis deviation now present Sinus bradycardia no longer present Electronically Signed On 07-01-2020 19:43:41 CDT by Santosh Diehl M.D. [id number] f
[2020-06-30 13:27] LABS: Reflex Lactate Order REFLEX LACTIC ORDERD
--- NOTE | 2020-06-30 15:28 | ECG_ITS ---
[facility] Test Date: 2020-06-30 Pat Name: Ceci Manning Department: Room: Gender: Female Counseling Director: : 1960 Requested By: Cheryl Ash Order Number: [id number] Sary MD: Santosh Diehl M.D. Measurements Intervals [place] Rate: 62 P: 57 ID: [id number] QRS: -44 QRSD: 96 T: 32 QT: 454 QTc: 463 Interpretive Statements SINUS RHYTHM LEFT AXIS DEVIATION [QRS AXIS < -30] PATTERN CONSISTENT WITH PULMONARY DISEASE Compared to ECG 06/30/2020 12:06:22 Sinus arrhythmia no longer present Electronically Signed On 07-01-2020 19:42:20 CDT by Santosh Diehl M.D. [id number]
== END 2020-06-30 15:49 | disposition other institution (70) ==
PROVIDERS: Emergency Provider Emergency Medicine; PCP Family Medicine
DX: R07.9 Chest pain, unspecified (principal); I10 Essential (primary) hypertension; Z95.0 Presence of cardiac pacemaker
CPT/HCPCS: 12345; 71045; 71275; 80053; 83605; 83880; 84484; 85025; 85378; 85610; 85730; 93005; 96374; 96375; 99283; 99285; J1170; J1200; J2060; J2765; Q9967

== ENCOUNTER → 2020-09-17 10:32 | Outpatient (BNVA) | payer BC, SELFPAY | PROVIDERS: PCP Family Medicine; Visit Provider Family Medicine | DX: Z20.828 Contact with and (suspected) exposure to other viral communicable diseases (principal) | CPT/HCPCS: 87635 ==

== ENCOUNTER 2021-01-08 09:08 | Outpatient (CLI) | payer BC, SELFPAY ==
--- NOTE | 2021-01-08 09:00 | XR_ITS ---
WS: [id number] KUB, 01/08/2021 Clinical Data: HX OF RENAL CALCULUS Comparison: KUB, 04/04/2015. Findings: No abnormal intraabdominal masses or calcifications are seen. There is no dilatated small bowel or ev idence of obstruction. There is a large amount of fecal material throughout the colon. There are clips in the right upper qu adrant from a cholecystectomy. The patient's clothing obscures only minimal detail in the upper abdom en. XR/XR KUB [id number] Impression: Negative KUB.
== END 2021-01-08 09:09 | disposition home or self-care (01) ==
LOC: RAD 09:13
PROVIDERS: PCP Family Medicine; Visit Provider Urology
DX: Z87.442 Personal history of urinary calculi (principal)
CPT/HCPCS: 74018; 81003; 87086

== ENCOUNTER → 2021-02-20 09:27 | Outpatient (BNVA) | payer BC, SELFPAY | PROVIDERS: PCP Family Medicine; Visit Provider Urology | DX: N30.20 Other chronic cystitis without hematuria (principal); N93.9 Abnormal uterine and vaginal bleeding, unspecified | CPT/HCPCS: 81003 ==

== ENCOUNTER → 2021-05-27 11:43 | Outpatient (BNVA) | payer BC, SELFPAY | PROVIDERS: PCP Family Medicine; Visit Provider Urology | DX: N30.20 Other chronic cystitis without hematuria (principal) | CPT/HCPCS: 81003; 87086 ==

== ENCOUNTER → 2021-07-29 10:06 | Outpatient (BNVA) | payer BC, SELFPAY | PROVIDERS: PCP Family Medicine; Visit Provider Nurse Practitioner Family | DX: N30.20 Other chronic cystitis without hematuria (principal); N20.0 Calculus of kidney | CPT/HCPCS: 81003 ==

== ENCOUNTER 2021-12-29 15:07 | Outpatient (CLI) | payer BC, SELFPAY ==
--- NOTE | 2021-12-29 15:00 | XR_ITS ---
WS: [id number] KUB, AP view, 12/29/2021 Clinical Data: RENAL STONES Comparison: KUB, 01/08/2021. Findings: No abnormal intraabdominal masses or calcifications are seen. There is no dilatated small bowel or ev idence of obstruction. Fecal material and bowel gas obscure detail over both kidneys. There are clips in the right upper gabriella drant from a cholecystectomy. XR/XR KUB [id number] Impression: Negative KUB.
== END 2021-12-29 15:08 | disposition home or self-care (01) ==
LOC: RAD 15:09
PROVIDERS: PCP Family Medicine; Visit Provider Urology
DX: N20.0 Calculus of kidney (principal); N30.20 Other chronic cystitis without hematuria
CPT/HCPCS: 74018; 81003; 87086

== ENCOUNTER → 2022-02-12 12:54 | Outpatient (BNVA) | payer BC, SELFPAY | PROVIDERS: PCP Family Medicine; Visit Provider Urology | DX: N30.20 Other chronic cystitis without hematuria (principal); N20.0 Calculus of kidney | CPT/HCPCS: 81003 ==

== ENCOUNTER → 2022-04-24 10:32 | Outpatient (BNVA) | payer BC, SELFPAY | PROVIDERS: PCP Family Medicine; Visit Provider Nurse Practitioner Family | DX: N30.20 Other chronic cystitis without hematuria (principal) | CPT/HCPCS: 81003 ==

== ENCOUNTER 2022-07-27 15:03 | Outpatient (CLI) | payer BC, SELFPAY ==
--- NOTE | 2022-07-27 15:22 | XR_ITS ---
WS: [id number] KUB, AP view, 07/27/2022 Clinical Data: stones Comparison: KUB, 12/29/2021. Findings: No abnormal intraabdominal masses are seen. There is no dilatated small bowel or evidence of obstruct ion. There may be a small central right renal calculus. The left kidney is partly obscured by overlying fe sveta material. There are clips in the right upper quadrant from a cholecystectomy. XR/XR KUB [id number] Impression: Possible small central right renal calculus.
== END 2022-07-27 15:04 | disposition home or self-care (01) ==
PROVIDERS: PCP Family Medicine; Visit Provider Urology
DX: N20.0 Calculus of kidney (principal); N30.20 Other chronic cystitis without hematuria
CPT/HCPCS: 74018; 81003

== ENCOUNTER 2023-01-04 09:44 | Outpatient (CLI) | payer BC, SELFPAY ==
--- NOTE | 2023-01-04 09:56 | MM_ITS ---
WS: [id number] VIEWS: MLO and CC views both breasts. 3D digital tomosynthesis is also included in this exam. Breast implant displacement MLO and CC views also included. Comparison made with prior exam of 01/28/2017. Findings: There was no sign of mass, architectural distortion or suspicious calcification in either breast. Int act bilateral breast implants, scattered fibroglandular densities MM/[place] [id number] Impression: BI-RADS: 2-Benign FOLLOW-UP: 1 Year Follow-up This mammogram was also analyzed by the Computer Aided Detection System R2 Imag e Deli Bakery Clerk.
== END 2023-01-04 09:45 | disposition home or self-care (01) ==
PROVIDERS: PCP Family Medicine; Visit Provider Family Medicine
DX: Z12.31 Encounter for screening mammogram for malignant neoplasm of breast (principal)
CPT/HCPCS: 77063; 77067

== ENCOUNTER 2023-04-12 18:37 | Emergency (ER) | payer BC, SELFPAY ==
[2023-04-12 18:51] VITALS: BP 183/84; PULSE 52; RESP 14; TEMP 36.7; O2SAT 98; BMI 25.7
--- NOTE | 2023-04-12 19:48 | ED_ITS ---
HPI - Female Genitourinary General: Chief complaint: Urogenital-Female Stated complaint: possible kidney stone Time Seen by Provider: 04/12/23 19:47 History of Present Illness: 63-year-old female comes in today with complaints of right flank pain starting this morning at around 530. Patient appears nontoxic. Patient appears in moderate pain. Patient reports a history of renal stones and this reminds her of her previous renal stone. Patient goes to the [facility] and sees Dr. Lagunas for her urologist at this time. Patient did talk to his office this morning and they have her scheduled for an appointment to follow-up. Patient came in this afternoon due to nausea and the discomfort. Associated symptoms: Reports nausea Review of Systems Const: Reports: chills; Denies: fever(s) GI: Reports: nausea and vomiting : Reports: flank pain and urinary urgency Musc: Reports: back pain PFSH ED PFSH: Medical History Atypical chest pain Borderline diabetes Chronic cystitis Fracture of lower extremity GERD (gastroesophageal reflux disease) Hiatal hernia History of pacemaker Hypertension Hypothyroidism Migraine headache Pacemaker Personal history of kidney stones Rectal fistula Renal stones Sinus node dysfunction Surgical History H/O hysterectomy with oophorectomy History of foot surgery X2 History of permanent cardiac pacemaker placement Hx laparoscopic cholecystectomy Family History Mother Cancer Multiple myeloma CAD (coronary artery disease) Atrial fibrillation Stroke Father , at age 75 Cancer Prostate cancer, metastatic CAD (coronary artery disease) Had myocardial infarction Brother CAD (coronary artery disease) Atrial fibrillation Social History Smoking and tobacco status: never smoked Alcohol intake: never Substance/Drug Use: never Household members: spouse Marital status: Current occupational status: employed Physical Exam Const: COMMON NORMALS: alert HENMT: COMMON NORMALS: normocephalic HEAD & SCALP: normocephalic Neck/C-Spine: COMMON NORMALS: full ROM Resp: COMMON NORMALS: normal respiratory effort and clear to auscultation bilaterally AUSCULTATION: clear to auscultation bilaterally Cardio: COMMON NORMALS: regular rate and regular rhythm RATE: regular rate RHYTHM: regular rhythm GI: COMMON NORMALS: Soft to palpation and non-tender PALPATION: Yes Soft to palpation : BLADDER/KIDNEY EXAM: Yes CVA tenderness on the right Back/Pelvis: GENERAL BACK: Yes CVA tenderness Extremity: COMMON NORMALS: no pedal edema Neuro: SENSORIUM/ORIENTATION: Yes alert Skin: COMMON NORMALS: turgor normal GENERAL SKIN EXAM: turgor normal Course Vital Signs: Vital signs: Vital Signs Temperature 98.0 F 04/12/23 18:51 Pulse Rate 50 L 04/12/23 21:21 Respiratory Rate 16 04/12/23 21:21 Blood Pressure 165/76 04/12/23 21:21 Pulse Oximetry 96 04/12/23 21:21 Oxygen Delivery Me thod Room Air 04/12/23 21:21 MDM - Female Medical Decision Making 63-year-old female comes in today for complaints of right flank pain radiating into the groin. On exam abdomen soft. Patient does have some right flank pain on percussion. Patient's vital signs are normal except for some elevation in blood pressure. Patient reports a history of gallbladder removal and hysterectomy. Differential diagnosis includes but not limited to appendicitis, renal calculi, UTI, gastroenteritis, diverticulitis. CBC and CMP was un remarkable. Urinalysis noted trace of red blood cells. CT of the abdomen pelvis noted a 3 mm stone in the distal ureter on the right side at the UVJ. Reviewed exam with patient with recommendations for treatment and follow-up. Patient reported understanding and agreed to plan. Lab Data 04/12/23 19:39 04/12/23 19:39 Radiology Impressions Abdomen/Pelvis CT 04/12/23 19:55 IMPRESSION: 1. Approximally 3 mm distal right ureteral calculus at the UVJ with moderately severe obstructive uropathy on the right, along with right perinephric stranding. 2. Tiny nonobstructing renal calculi bilaterally. 3. Other nonacute findings as noted above. Laboratory Results WBC 16.1 10^3/uL (4.0-10.0) H 04/12/23 19:39 RBC 4.99 10^6/uL (4.1-5.3) 04/12/23 19:39 Hgb 14.3 g/dL (11.5-15.3) 04/12/23 19:39 Hct 43.5 % (37.0-47.0) 04/12/23 19:39 MCV 87.2 fl (81-99) 04/12/23 19:39 MCH 28.7 pg (28.0-34.0) 04/12/23 19:39 MCHC 32.9 g/dL (30.0-36.0) 04/12/23 19:39 RDW 13.0 % (12.1-15.1) 04/12/23 19:39 Plt Count 348 10^3/cmm (130-400) 04/12/23 19:39 MPV 10.0 fL (7.4-10.4) 04/12/23 19:39 Neut % (Auto) 89.3 % 04/12/23 19:39 Lymph % (Auto) 7.3 % 04/12/23 19:39 [place] % (Auto) 2.9 % 04/12/23 19:39 Eos % (Auto) 0.0 % 04/12/23 19:39 Baso % (Auto) 0.3 % 04/12/23 19:39 Neut # (Auto) 14.34 10^3/uL (1.8-7.7) H 04/12/23 19:39 Lymph # (Auto) 1.2 10^3/uL (0.8-4.8) 04/12/23 19:39 [place] # (Auto) 0.5 10^3/uL (0.2-0.9) 04/12/23 19:39 Eos # (Auto) 0.0 10^3/uL (0.0-0.8) 04/12/23 19:39 Baso # (Auto) 0.1 10^3/uL (0.0-0.1) 04/12/23 19:39 Nucleated RBC % (auto) 0 % 04/12/23 19:39 Nucleated RBCs # 0.0 /100WBC 04/12/23 19:39 Sodium 132 mmol/L (136-145) L 04/12/23 19:39 Potassium 3.8 mmol/L (3.5-5.1) 04/12/23 19:39 Chloride 98 mmol/L (98-107) 04/12/23 19:39 Carbon Dioxide 22 mmol/L (22-29) 04/12/23 19:39 Anion Gap 15.8 (5-19) 04/12/23 19:39 BUN 21 mg/dL (8-23) 04/12/23 19:39 Creatinine 0.7 mg/dL (0.5-0.9) 04/12/23 19:39 GFR Calculation 85.1 mL/min (90-130) L 04/12/23 19:39 Glucose 134 mg/dL (65-115) H 04/12/23 19:39 Calculated Osmolality 279 mOsm/kg (285-295) L 04/12/23 19:39 Calcium 9.5 mg/dL (8.5-10.5) 04/12/23 19:39 Total Bilirubin 0.4 mg/dL (0.15-1.2) 04/12/23 19:39 AST 22 U/L (0-32) 04/12/23 19:39 ALT 20 U/L (0-33) 04/12/23 19:39 Alkaline Phosphatase 88 U/L (35-105) 04/12/23 19:39 Total Protein 7.5 g/dL (6.6-8.7) 04/12/23 19:39 Albumin 4.2 g/dL (3.5-5.2) 04/12/23 19:39 Globulin 3.3 g/dL (1.3-4.6) 04/12/23 19:39 Lipase 24 U/L (13-60) 04/12/23 19:39 Urine Color Yellow (Yellow) 04/12/23 20:03 Urine Appearance Sl hazy (CLEAR) A 04/12/23 20:03 Urine pH 6 (5-7) 04/12/23 20:03 Ur Specific [place] 1.015 (1.005-1.030) 04/12/23 20:03 Urine Protein Neg (Negative) 04/12/23 20:03 Urine Glucose (UA) Norm (Normal) 04/12/23 20:03 Urine Ketones 2+ (Negative) H 04/12/23 20:03 Urine Blood 3+ (Negative) H 04/12/23 20:03 Urine Nitrate Negative (Negative) 04/12/23 20:03 Urine Bilirubin Neg (Negative) 04/12/23 20:03 Urine Urobilinogen Neg mg/dL (Negative) 04/12/23 20:03 Ur Leukocyte Esterase Negative (Negative) 04/12/23 20:03 Urine RBC 10-15 /hpf (0-2) H 04/12/23 20:03 Urine WBC 0-4 /hpf (0-5) H 04/12/23 20:03 Ur Squamous Epith Cells 0-4 /hpf (0-5) H 04/12/23 20:03 Amorphous Sediment Not Reportable 04/12/23 20:03 Urine Bacteria 1+ /hpf (NONE) H 04/12/23 20:03 Urine Mucus 2+ /hpf 04/12/23 20:03 Discharge Plan Discharge Patient Disposition: Home Clinical Impression: Right ureteral calculus Condition: Stable Prescriptions: New hydrocodone-acetaminophen 5-325 mg tablet 1 tab PO Q6H PRN (Reason: pain) Qty: 12 0RF ondansetron 4 mg tablet,disintegrating 4 mg PO Q8H PRN (Reason: nausea and vomiting) Qty: 6 0RF No Action aspirin [Adult Aspirin Regimen] 81 mg tablet,delayed release (DR/EC) 81 mg PO DAILY Calcium 600 + D(3) 600 mg calcium- 200 unit capsule PO BID cholecalciferol (vitamin D3) 25 mcg (1,000 unit) tablet 25 mcg PO DAILY doxycycline hyclate 100 mg tablet 100 mg PO BID Qty: 42 0RF omeprazole 40 mg capsule,delayed release(DR/EC) See Rx Instructions .ROUTE .COMPLEX Qty: 90 3RF Dose Instruction: take 1 capsule BY MOUTH EVERY DAY FOR stomach Rx Instructions: take 1 capsule BY MOUTH EVERY DAY FOR stomach estradiol 0.5 mg tablet 0.5 mg PO DAILY Qty: 90 0RF trazodone 50 mg tablet 50 mg PO BEDTIME Qty: 90 0RF ondansetron HCl 4 mg tablet 4 mg PO Q6H PRN (Reason: nausea and vomiting) Qty: 20 0RF levothyroxine 125 mcg tablet See Rx Instructions .ROUTE .COMPLEX Qty: 90 1RF Dose Instruction: TAKE 1 TABLET BY MOUTH EVERY DAY Rx Instructions: TAKE 1 TABLET BY MOUTH EVERY DAY duloxetine 20 mg capsule,delayed release(DR/EC) See Rx Instructions .ROUTE .COMPLEX Qty: 30 5RF Dose Instruction: take 1 capsule BY MOUTH EVERY DAY Rx Instructions: take 1 capsule BY MOUTH EVERY DAY meloxicam 15 mg tablet 15 mg PO BEDTIME Qty: 90 1RF diazepam 2 mg tablet 2 - 4 mg PO BID PRN (Reason: Anxiety/muscle spasm) Qty: 100 5RF acetaminophen [Tylenol Extra Strength] 500 mg tablet 1,000 mg PO BEDTIME PRN Discharge Orders: Discharge ED (Routine); Ordered 04/12/23 Ordered By: Jose Deal Referrals: Acosta Wild DO [Primary Care Provider] - Discharge Diet: Usual diet Discharge Activity: Increase activity as tolerated Patient Instructions: Kidney Stones (ED) Activity Restrictions/Additional Instructions: Home and rest. Strain all urine. Take medications as directed. Follow-up with primary care as needed. Follow-up with urologist as needed. Return to ED for worsening symptoms such as high fever greater than 100.3, inability to hold fluids down, or new concerns. Coding Level of Care Code ED Retail Shift Leader for Rima Lama
[2023-04-12 19:55] LABS: Basophils # 0.1 10^3/uL (0.0-0.1); Basophils % 0.3 %; Hematocrit 43.5 % (37.0-47.0); Hemoglobin 14.3 g/dL (11.5-15.3); Lymphocytes # 1.2 10^3/uL (0.8-4.8); Lymphocytes % 7.3 %; Mean Corpuscular HGB Conc 32.9 g/dL (30.0-36.0); Mean Corpuscular Hemoglobin 28.7 pg (28.0-34.0); Mean Corpuscular Volume 87.2 fl (81-99); Monocytes # 0.5 10^3/uL (0.2-0.9); Monocytes % 2.9 %; Neutrophils # 14.34 10^3/uL (1.8-7.7); Neutrophils % 89.3 %; Nucleated Red Blood Cells % 0 %; Platelet Count 348 10^3/cmm (130-400); Red Blood Count 4.99 10^6/uL (4.1-5.3); White Blood Count 16.1 10^3/uL (4.0-10.0)
--- NOTE | 2023-04-12 19:55 | CTR_ITS ---
PROCEDURE INFORMATION: Exam: CT Abdomen And Pelvis Without Contrast Exam date and time: 04/12/2023 8:11 PM Age: 63 years old Clinical indication: Abdominal pain; Flank; Right; Prior surgery; Surgery date: 6+ months; Surgery type: Cholecystectomy; Additional info: Right flank pain, HX of renal stones TECHNIQUE: Imaging protocol: Computed tomography of the abdomen and pelvis without contrast. Radiation optimization: All CT scans at this facility use at least one of these dose optimization techniques: automated exposure control; mA and/or kV adjustment per patient size (includes targeted exams where dose is matched to clinical indication); or iterative reconstruction. REPORTING DATA: Count of CT and Cardiac NM exams in prior 12 months: This patient has received 0 known CTs and 0 known cardiac nuclear medicine studies in the 12 months prior to the current study. COMPARISON: CT kidney stone [id number] 12/27/2017 7:23 AM RADIATION DOSE METRICS: Total DLP (mGy-cm): 551.07 FINDINGS: Liver: Normal. No mass. Gallbladder and bile ducts: Surgical clips gallbladder fossa prior cholecystectomy. No significant biliary ductal dilatation.. Pancreas: Normal. No ductal dilation. Spleen: Normal. No splenomegaly. Adrenal glands: Normal. No mass. Kidneys and ureters: Tiny nonobstructing renal calculi are seen bilaterally. Approximally 3 mm distal right ureteral calculus is seen at the UVJ. Moderately severe obstructive uropathy on the right. Right perinephric stranding is also seen with a component of right periureteral stranding. Stomach and bowel: Unremarkable. No obstruction. No mucosal thickening. Moderate stool volume. Appendix: No evidence of appendicitis. Intraperitoneal space: Unremarkable. No free air. No significant fluid collection. Vasculature: Mild atherosclerotic calcification without aneurysmal dilatation of the abdominal aorta. Lymph nodes: Unremarkable. No enlarged lymph nodes. Urinary bladder: Partially distended urinary bladder without focal abnormality.. Reproductive: Suggestion of previous hysterectomy. Bones/joints: No acute findings. Soft tissues: Partially visualized bilateral breast implants about the lower chest. Lungs: Visualized lung bases appear clear. Small hiatal hernia is seen. CT/CT kidney stone [id number] IMPRESSION: 1. Approximally 3 mm distal right ureteral calculus at the UVJ with moderately severe obstructive uropathy on the right, along with right perinephric stranding. 2. Tiny nonobstructing renal calculi bilaterally. 3. Other nonacute findings as noted above.
[2023-04-12 20:02] VITALS: BP 163/58; PULSE 58; RESP 17; O2SAT 97
[2023-04-12 20:11] LABS: Alanine Aminotransferase 20 U/L (0-33); Albumin Level 4.2 g/dL (3.5-5.2); Alkaline Phosphatase 88 U/L (35-105); Anion Gap 15.8 (5-19); Aspartate Amino Transferase 22 U/L (0-32); Blood Urea Nitrogen 21 mg/dL (8-23); Calcium 9.5 mg/dL (8.5-10.5); Carbon Dioxide 22 mmol/L (22-29); Chloride 98 mmol/L (98-107); Creatinine Clr Calc Pharmacy 76.9406; Globulin 3.3 g/dL (1.3-4.6); Glomerular Filtration Rate 85.1 mL/min (90-130); Glucose 134 mg/dL (65-115); Lipase 24 U/L (13-60); Osmolality Calculated 279 mOsm/kg (285-295); Potassium 3.8 mmol/L (3.5-5.1); Sodium 132 mmol/L (136-145); Total Bilirubin 0.4 mg/dL (0.15-1.2); Total Protein 7.5 g/dL (6.6-8.7)
[2023-04-12 20:23] LABS: Add Urine Microscopic? YES; Bacteria Urine 1+ /hpf; Bilirubin Urine Neg (Negative); Blood Urine 3+ (Negative); Glucose Urine UA Norm (Normal); Ketones Urine 2+ (Negative); Leukocyte Esterase Urine Negative (Negative); Nitrate Urine Negative (Negative); Protein Urine Neg (Negative); Specific Gravity, Urine 1.015 (1.005-1.030); Squamous Epithelial Cell Urine 0-4 /hpf (0-5); Urine Appearance SL Hazy (CLEAR); Urine Color Yellow (Yellow); Urobilinogen Urine Neg (Negative); WBC Urine 0-4 /hpf (0-5); pH Urine 6 (5-7)
[2023-04-12 20:24] LABS: Add Urine Culture? Yes; Mucus Urine 2+ /hpf
[2023-04-12] MEDS: ketorolac 30 mg/mL INJ 15 MG IVP (20:41)
[2023-04-12] MEDS: ondansetron 2 mg/ML SDV 2 mL 4 MG IVP (20:50)
[2023-04-12] MEDS: morphine 4 mg/mL SDV 1 mL IVP (20:50)
[2023-04-12] MEDS: sodium chloride 0.9% 1,000 ML 999 ML IV ×2 (20:51→21:36)
[2023-04-12] MEDS: ondansetron 4 MG Tablet PO (21:20)
[2023-04-12] MEDS: HYDROcodone-acetaminophen 5-325 mg Tablet 2 TAB PO (21:20)
[2023-04-12 21:21] VITALS: BP 165/76; PULSE 50; RESP 16; O2SAT 96
== END 2023-04-12 21:54 | disposition home or self-care (01) ==
PROVIDERS: Emergency Medicine; Emergency Provider Nurse Practitioner Family; PCP Family Medicine
DX: N20.1 Calculus of ureter (principal); Z79.899 Other long term (current) drug therapy
CPT/HCPCS: 36415; 74176; 80053; 81001; 83690; 85025; 87086; 96374; 96375; 96376; 99285; J1885; J2270; J2405; J7030; Q0162

== ENCOUNTER → 2024-11-07 13:20 | Outpatient (BNVA) | payer BC, SELFPAY | PROVIDERS: PCP Family Medicine; Visit Provider Family Medicine | DX: E03.9 Hypothyroidism, unspecified (principal) | CPT/HCPCS: 84443 ==

== ENCOUNTER → 2025-04-18 10:17 | Outpatient (BNVA) | payer BC, SELFPAY | PROVIDERS: PCP Family Medicine; Visit Provider Family Medicine | DX: E03.9 Hypothyroidism, unspecified (principal); F41.9 Anxiety disorder, unspecified; F32.A Depression, unspecified; I10 Essential (primary) hypertension; R53.83 Other fatigue; R68.89 Other general symptoms and signs | CPT/HCPCS: 80053; 80061; 84443; 85025 ==